=== PATIENT | female | born 1945 | race African-American/Black ===

== ENCOUNTER 2021-05-07 18:10 | Inpatient (IN) | payer MEDICARE, OTHER ==
--- NOTE | 2021-05-07 18:32 | Emergency Department Report ---
HPI - General Chief Complaint: Altered Mental Status Time Seen by Provider: 05/07/21 18:14 - HPI HPI: 76-year-old female with history of hypertension and prior stroke 3 years ago ( says that the patient never followed up according to EMS) brought in by EMS for 2 to 3 days of several neurologic symptoms including generalized weakness and malaise, uncoordinated gait, and left-sided facial droop. According to EMS, the patient vomited once in route. She is noted to have elevated blood pressure of 190/90. Her fingerstick blood glucose was 294. She complains of severe headache for the past 2 to 3 days. Exact last known well time is not known. She says she has not felt well and has had a headache whenever she moves. She states she is also had urinary frequency and been drinking a lot of water. The patient denies any other symptoms or complaints. Further details of the HPI are highly limited due to the patient's current clinical condition. ED Past Medical Hx - Past Medical History Previous Medical History?: Yes Hx Hypertension: Yes Hx CVA: Yes - Social History Smoking Status: Never Smoker ED Review of Systems ROS: Stated complaint: AMS Other details as noted in HPI Comment: All other systems reviewed and negative Constitutional: malaise. denies: chills, fever Eyes: denies: eye pain, vision change ENT: denies: throat pain, congestion Respiratory: denies: cough, shortness of breath Cardiovascular: denies: chest pain, palpitations Endocrine: increased thirst Gastrointestinal: denies: abdominal pain, nausea, vomiting Genitourinary: frequency. denies: dysuria Musculoskeletal: denies: back pain, arthralgia Skin: denies: rash, lesions Neurological: headache, weakness, numbness Physical Exam - Physical Exam Vital Signs: Vital Signs 05/07/21 18:12 Temperature 98.6 F Pulse Rate 64 Respiratory 18 Rate Blood Pressure 136/82 [Left] O2 Sat by Pulse 98 Oximetry Physical Exam: GENERAL: Well developed and well nourished. No acute distress HEAD: Normocephalic. No obvious signs of trauma. ENT: Dry mucous membranes. EYES: Extraocular movements are intact. Pupils are equal round and reactive to light bilaterally NECK: Supple. Full ROM is intact. Trachea is midline. LUNGS: Nonlabored breathing. Equal chest rise bilaterally. Right basilar rales. Otherwise clear. CARDIOVASCULAR: Regular rate and rhythm. No murmurs or rubs. VASCULAR: Cap refill < 2 seconds ABDOMEN: Abdomen is soft and nondistended. There is no significant tenderness, guarding or rebound. SKIN: Skin is warm and dry NEURO: Patient is awake, alert, and oriented. There is a left-sided facial droop noted involving the lower aspect of the face. Otherwise care support representative II-XII grossly intact. There is weakness of the left upper and lower extremities with subjectively decreased sensation to light touch. No drift. Normal speech. MUSCULOSKELETAL: No obvious deformities. No significant tenderness. Normal ROM throughout. BACK/SPINE: No midline tenderness or step-offs of the C/T/L spine. No costovertebral angle tenderness. ED Course Vital Signs 05/07/21 18:12 Temperature 98.6 F Pulse Rate 64 Respiratory 18 Rate Blood Pressure 136/82 [Left] O2 Sat by Pulse 98 Oximetry ED Medical Decision Making - Lab Data Result diagrams: 05/08/21 03:42 05/08/21 03:42 Lab Results 05/07/21 05/07/21 05/07/21 Range/Units 18:29 18:29 18:29 WBC 11.5 H (4.5-11.0) K/mm3 RBC 4.92 (3.65-5.03) M/mm3 Hgb 15.0 H (10.1-14.3) gm/dl Hct 45.7 H (30.3-42.9) % MCV 93 (79-97) fl MCH 31 (28-32) pg MCHC 33 (30-34) % RDW 13.0 L (13.2-15.2) % Plt Count 206 (140-440) K/mm3 Lymph % (Auto) 13.0 L (13.4-35.0) % Riley % (Auto) 2.7 (0.0-7.3) % Eos % (Auto) 0.2 (0.0-4.3) % Baso % (Auto) 0.2 (0.0-1.8) % Lymph # (Auto) 1.5 (1.2-5.4) K/mm3 Riley # (Auto) 0.3 (0.0-0.8) K/mm3 Eos # (Auto) 0.0 (0.0-0.4) K/mm3 Baso # (Auto) 0.0 (0.0-0.1) K/mm3 Seg Neutrophils % 83.9 H (40.0-70.0) % Seg Neutrophils # 9.7 H (1.8-7.7) K/mm3 PT 12.9 (12.2-14.9) Sec. INR 0.88 (0.87-1.13) APTT 26.9 (24.2-36.6) Sec. Thrombin Time 17.4 (15.1-19.6) Sec. D-Dimer (0-234) ng/mlDDU Sodium (137-145) mmol/L Potassium (3.6-5.0) mmol/L Chloride (98-107) mmol/L Carbon Dioxide (22-30) mmol/L Anion Gap mmol/L BUN (7-17) mg/dL Creatinine (0.6-1.2) mg/dL Estimated GFR ml/min BUN/Creatinine Ratio % Glucose (65-100) mg/dL Hemoglobin A1c (4-6) % Lactic Acid (0.7-2.0) mmol/L Calcium (8.4-10.2) mg/dL Magnesium (1.7-2.3) mg/dL Ferritin (10.0-200.0) ng/mL Total Bilirubin (0.1-1.2) mg/dL Direct Bilirubin (0-0.2) mg/dL Indirect Bilirubin mg/dL AST (5-40) units/L ALT (7-56) units/L Alkaline Phosphatase (35-129) units/L Ammonia (25-60) umol/L Lactate Dehydrogenase (91-180) units/L Total Creatine Kinase 73 (30-135) units/L CK-MB (CK-2) 1.7 (0.0-4.0) ng/mL CK-MB (CK-2) Rel Index 2.3 (0-4) Troponin T < 0.010 (0.00-0.029) ng/mL C-Reactive Protein (0.00-1.30) mg/dL Total Protein (6.3-8.2) g/dL Albumin (3.9-5) g/dL Albumin/Globulin Ratio % Plasma/Serum Alcohol (0-0.07) % 05/07/21 05/07/21 05/07/21 Range/Units 18:29 19:04 19:04 WBC (4.5-11.0) K/mm3 RBC (3.65-5.03) M/mm3 Hgb (10.1-14.3) gm/dl Hct (30.3-42.9) % MCV (79-97) fl MCH (28-32) pg MCHC (30-34) % RDW (13.2-15.2) % Plt Count (140-440) K/mm3 Lymph % (Auto) (13.4-35.0) % Riley % (Auto) (0.0-7.3) % Eos % (Auto) (0.0-4.3) % Baso % (Auto) (0.0-1.8) % Lymph # (Auto) (1.2-5.4) K/mm3 Riley # (Auto) (0.0-0.8) K/mm3 Eos # (Auto) (0.0-0.4) K/mm3 Baso # (Auto) (0.0-0.1) K/mm3 Seg Neutrophils % (40.0-70.0) % Seg Neutrophils # (1.8-7.7) K/mm3 PT (12.2-14.9) Sec. INR (0.87-1.13) APTT (24.2-36.6) Sec. Thrombin Time (15.1-19.6) Sec. D-Dimer (0-234) ng/mlDDU Sodium 136 L (137-145) mmol/L Potassium 4.0 (3.6-5.0) mmol/L Chloride 100.9 (98-107) mmol/L Carbon Dioxide 23 (22-30) mmol/L Anion Gap 16 mmol/L BUN 19 H (7-17) mg/dL Creatinine 0.5 L (0.6-1.2) mg/dL Estimated GFR > 60 ml/min BUN/Creatinine Ratio 38 % Glucose 312 H (65-100) mg/dL Hemoglobin A1c (4-6) % Lactic Acid 1.90 (0.7-2.0) mmol/L Calcium 9.2 (8.4-10.2) mg/dL Magnesium 2.20 (1.7-2.3) mg/dL Ferritin (10.0-200.0) ng/mL Total Bilirubin 0.40 (0.1-1.2) mg/dL Direct Bilirubin < 0.2 (0-0.2) mg/dL Indirect Bilirubin 0.2 mg/dL AST 21 (5-40) units/L ALT 23 (7-56) units/L Alkaline Phosphatase 71 (35-129) units/L Ammonia 31.0 (25-60) umol/L Lactate Dehydrogenase (91-180) units/L Total Creatine Kinase (30-135) units/L CK-MB (CK-2) (0.0-4.0) ng/mL CK-MB (CK-2) Rel Index (0-4) Troponin T (0.00-0.029) ng/mL C-Reactive Protein (0.00-1.30) mg/dL Total Protein 7.6 (6.3-8.2) g/dL Albumin 4.4 (3.9-5) g/dL Albumin/Globulin Ratio 1.4 % Plasma/Serum Alcohol (0-0.07) % 05/07/21 05/07/21 05/07/21 Range/Units 19:04 20:18 20:18 WBC (4.5-11.0) K/mm3 RBC (3.65-5.03) M/mm3 Hgb (10.1-14.3) gm/dl Hct (30.3-42.9) % MCV (79-97) fl MCH (28-32) pg MCHC (30-34) % RDW (13.2-15.2) % Plt Count (140-440) K/mm3 Lymph % (Auto) (13.4-35.0) % Riley % (Auto) (0.0-7.3) % Eos % (Auto) (0.0-4.3) % Baso % (Auto) (0.0-1.8) % Lymph # (Auto) (1.2-5.4) K/mm3 Riley # (Auto) (0.0-0.8) K/mm3 Eos # (Auto) (0.0-0.4) K/mm3 Baso # (Auto) (0.0-0.1) K/mm3 Seg Neutrophils % (40.0-70.0) % Seg Neutrophils # (1.8-7.7) K/mm3 PT (12.2-14.9) Sec. INR (0.87-1.13) APTT (24.2-36.6) Sec. Thrombin Time (15.1-19.6) Sec. D-Dimer 395.60 H (0-234) ng/mlDDU Sodium (137-145) mmol/L Potassium (3.6-5.0) mmol/L Chloride (98-107) mmol/L Carbon Dioxide (22-30) mmol/L Anion Gap mmol/L BUN (7-17) mg/dL Creatinine (0.6-1.2) mg/dL Estimated GFR ml/min BUN/Creatinine Ratio % Glucose 279 H (65-100) mg/dL Hemoglobin A1c (4-6) % Lactic Acid (0.7-2.0) mmol/L Calcium (8.4-10.2) mg/dL Magnesium (1.7-2.3) mg/dL Ferritin (10.0-200.0) ng/mL Total Bilirubin (0.1-1.2) mg/dL Direct Bilirubin (0-0.2) mg/dL Indirect Bilirubin mg/dL AST (5-40) units/L ALT (7-56) units/L Alkaline Phosphatase (35-129) units/L Ammonia (25-60) umol/L Lactate Dehydrogenase 218 H (91-180) units/L Total Creatine Kinase (30-135) units/L CK-MB (CK-2) (0.0-4.0) ng/mL CK-MB (CK-2) Rel Index (0-4) Troponin T (0.00-0.029) ng/mL C-Reactive Protein 0.10 (0.00-1.30) mg/dL Total Protein (6.3-8.2) g/dL Albumin (3.9-5) g/dL Albumin/Globulin Ratio % Plasma/Serum Alcohol < 0.01 (0-0.07) % 05/07/21 05/07/21 05/07/21 Range/Units 20:18 20:47 21:49 WBC (4.5-11.0) K/mm3 RBC (3.65-5.03) M/mm3 Hgb (10.1-14.3) gm/dl Hct (30.3-42.9) % MCV (79-97) fl MCH (28-32) pg MCHC (30-34) % RDW (13.2-15.2) % Plt Count (140-440) K/mm3 Lymph % (Auto) (13.4-35.0) % Riley % (Auto) (0.0-7.3) % Eos % (Auto) (0.0-4.3) % Baso % (Auto) (0.0-1.8) % Lymph # (Auto) (1.2-5.4) K/mm3 Riley # (Auto) (0.0-0.8) K/mm3 Eos # (Auto) (0.0-0.4) K/mm3 Baso # (Auto) (0.0-0.1) K/mm3 Seg Neutrophils % (40.0-70.0) % Seg Neutrophils # (1.8-7.7) K/mm3 PT (12.2-14.9) Sec. INR (0.87-1.13) APTT (24.2-36.6) Sec. Thrombin Time (15.1-19.6) Sec. D-Dimer (0-234) ng/mlDDU Sodium (137-145) mmol/L Potassium (3.6-5.0) mmol/L Chloride (98-107) mmol/L Carbon Dioxide (22-30) mmol/L Anion Gap mmol/L BUN (7-17) mg/dL Creatinine (0.6-1.2) mg/dL Estimated GFR ml/min BUN/Creatinine Ratio % Glucose (65-100) mg/dL Hemoglobin A1c 8.8 H (4-6) % Lactic Acid (0.7-2.0) mmol/L Calcium (8.4-10.2) mg/dL Magnesium (1.7-2.3) mg/dL Ferritin 123.6 (10.0-200.0) ng/mL Total Bilirubin (0.1-1.2) mg/dL Direct Bilirubin (0-0.2) mg/dL Indirect Bilirubin mg/dL AST (5-40) units/L ALT (7-56) units/L Alkaline Phosphatase (35-129) units/L Ammonia (25-60) umol/L Lactate Dehydrogenase (91-180) units/L Total Creatine Kinase (30-135) units/L CK-MB (CK-2) (0.0-4.0) ng/mL CK-MB (CK-2) Rel Index (0-4) Troponin T < 0.010 (0.00-0.029) ng/mL C-Reactive Protein (0.00-1.30) mg/dL Total Protein (6.3-8.2) g/dL Albumin (3.9-5) g/dL Albumin/Globulin Ratio % Plasma/Serum Alcohol (0-0.07) % - EKG Data -: EKG Interpreted by Ct - EKG Data 05/07/21 20:12 Normal sinus rhythm. Normal axis. Normal intervals. No ectopy. No significant ST segment or T wave abnormalities. - Radiology Data Radiology results: report reviewed - Medical Decision Making 76-year-old female with history of prior stroke who did not follow-up brought in by EMS for 2 to 3 days of neurologic deficits including left-sided facial droop, left-sided weakness, gait disturbance, and confusion. The patient also reports frequent urination and increased thirst. She has had a persistent severe headache over that period of time. Initial blood pressure was 190/90 with fingerstick blood glucose of 294. Given the deficits observed on exam and unknown chronicity stroke alert was called with Noncon CT of the head to assess for evidence of ischemia versus intracranial hemorrhage versus other abnormality to explain the patient's presentation. Radiology called and states that Noncon CT of the head reveals 2 small deep infa rctions in the right basal ganglia capsular distribution which are chronic in nature. There is no evidence of acute stroke or intracranial hemorrhage. Labs reveal leukocytosis of 11.5 with hemoglobin of 15.0. Creatinine is 0.5 but BUN is 19, with BUN to creatinine ratio of 38. In light of the increased BUN to creatinine ratio I feel that the patient is likely hemoconcentrated due to severe volume depletion. In addition, glucose is elevated at 312. Patient has no history of diabetes. Given likely new onset diabetes and severe dehydration I have ordered 2 L of IV fluids as well as blood cultures. I spoke with Dr. Garcia of teleneurology regarding the case. He agrees with my clinical impression that the patient likely has metabolic derangements which have unmasked prior neurologic deficits from previous stroke. Of course acute stroke cannot be definitively ruled out. Agrees with our current work-up and management. Chest x-ray shows right lower lobe pneumonia. I have ordered IV ceftriaxone and azithromycin. I have also ordered the COVID-19 order set. Patient will be admitted to medicine for further work-up and management. Critical Care Time: Yes Critical care time in (mins) excluding proc time.: 45 Critical care attestation.: If time is entered above; I have spent that time in minutes in the direct care of this critically ill patient, excluding procedure time. Critical care time was spent in the evaluation/assessment, work-up, and management of left-sided facial droop requiring stroke alert initiation as well as new onset diabetes with hyperglycemia and pneumonia with metabolic encephal opathy requiring frequent reevaluation reassessment as well as consultation with specialist ED Disposition Clinical Impression: Newly diagnosed diabetes, Dehydration, Encephalopathy, metabolic, Pneumonia, Hyperglycemia, Facial droop Disposition: ADMITTED INPATIENT Is pt being admited?: Yes Condition: Stable - Assessment Assessment Interval: Baseline - Level of Consciousness 1a. Level of Consciousness: alert/keenly responsive - LOC Questions 1b. LOC Questions: answers both correctly - LOC Command 1c. LOC Commands: performs tasks correctly - Best Gaze 2. Best Gaze: normal - Visual 3. Visual: no visual loss - Facial Palsy 4. Facial Palsy: minor paralysis - Motor Arm 5a. Motor Arm Left: no drift 5b. Motor Arm Right: no drift - Motor Leg 6a. Motor Leg Left: no drift 6b. Motor Leg Right: no drift - Limb Ataxia 7. Limb Ataxia: absent - Sensory 8. Sensory: mild/moderate sensory loss - Best Language 9. Best Language: no aphasia - Dysarthria 10. Dysarthria: normal - Extinction and Inattention 11. Extinction/Inattention: no abnormality - Scoring Total Score: 2 Stroke Severity: Minor Stroke
[2021-05-07 18:39] LABS: Basophils % (Auto) 0.2 % (0.0-1.8); Eosinophils % (Auto) 0.2 % (0.0-4.3); Hematocrit 45.7 % (30.3-42.9); Lymphocytes # (Auto) 1.5 K/mm3 (1.2-5.4); Mean Corpuscular HGB Conc 33 % (30-34); Mean Corpuscular Volume 93 fl (79-97); Monocytes # (Auto) 0.3 K/mm3 (0.0-0.8); Monocytes % (Auto) 2.7 % (0.0-7.3); Platelet Count 206 K/mm3 (140-440); Red Blood Count 4.92 M/mm3 (3.65-5.03)
--- NOTE | 2021-05-07 18:47 | Cat Scan Report ---
CT HEAD WITHOUT CONTRAST INDICATION / CLINICAL INFORMATION: Stroke symptoms. TECHNIQUE: All CT scans at this location are performed using CT dose reduction for ALARA by means of automated e xposure control. COMPARISON: None available. FINDINGS: HEMORRHAGE: No evidence of intracranial hemorrhage or extra-axial fluid collection. EXTRA-AXIAL SPACES: Cortical sulci and sylvian fissures are mildly within normal limits for the patie nt's age of 76 years. Basilar cisterns have an unremarkable appearance. VENTRICULAR SYSTEM: The third and lateral ventricles are enlarged reflecting presence of age related parenchymal volume loss. CEREBRAL PARENCHYMA: A well-circumscribed region of decreased brain parenchymal attenuation is observ ed involving anterior limb internal capsule on the right. A second area of decreased brain parenchyma l attenuation is observed in the right mathews radiata. These are manifestation of small deep infarcti on which are likely subacute or chronic. Further evaluation with magnetic resonance imaging would be useful to more accurately date these findings. MIDLINE SHIFT OR HERNIATION: There is no mass effect. CEREBELLUM / BRAINSTEM: Brainstem has an unremarkable appearance. Age related cerebellar atrophy is n oted. MIDLINE STRUCTURES:Pituitary gland has an unremarkable appearance. No abnormalities are seen in the p ineal region. INTRACRANIAL VESSELS:Calcified atherosclerotic plaque is present along the course of the cavernous se gments of both internal carotid arteries. Similar findings are seen at the distal vertebral arteries. ORBITS: Status post bilateral cataract surgery. No additional abnormality. SOFT TISSUES of HEAD: No significant abnormality. CALVARIUM: Evaluation of bone windows reveals no abnormalities. PARANASAL SINUSES / MASTOID AIR CELLS: Mucosal thickening is present at the base of the left maxillar y sinus. Paranasal sinuses otherwise appear clear. Mastoid air cells are normally pneumatized bilater ally. ADDITIONAL FINDINGS: None. IMPRESSION: 1. 2 small deep infarctions are identified in a right ganglia capsular distribution. These are likely chronic. 2. No acute intracranial abnormality. CODE STROKE: Time of Communication (HELP DESK TEAM LEADER/CDT): 1740 Central standard time Licensed Practitioner Receiving Report: Dr. Jann Turner of the [facility] em ergency department. Signer Name: Gilbert Kim MD Signed: 05/07/2021 6:43 PM Workstation Name: [id number]
[2021-05-07 18:48] LABS: INR 0.88 (0.87-1.13)
[2021-05-07 18:49] LABS: Partial Thromboplastin Time 26.9 Sec. (24.2-36.6); Thrombin Time 17.4 Sec. (15.1-19.6)
[2021-05-07 19:04] LABS: Alanine Aminotransferase 23 units/L (7-56); Albumin 4.4 g/dL (3.9-5); Blood Urea Nitrogen 19 mg/dL (7-17); Calcium 9.2 mg/dL (8.4-10.2); Hemolysis Index 6
[2021-05-07 19:05] LABS: Creatine Kinase MB 1.7 ng/mL (0.0-4.0)
[2021-05-07 19:10] LABS: BUN/Creatinine Ratio 38; Bilirubin,Direct < 0.2 mg/dL (0-0.2)
[2021-05-07] MEDS ORDERED: SODIUM CHLORIDE 0.9% 1000 ML 1,000 ML IV ONE ×2 (19:20→19:21)
[2021-05-07] MEDS ORDERED: ASPIRIN 325 MG TAB PO ONE (19:25)
--- NOTE | 2021-05-07 19:43 | Consultation ---
Medications and Allergies Allergies Allergy/AdvReac Type Severity Reaction Status Date / Time No Known Allergies Allergy Unverified 05/07/21 18:12 Active Meds: Active Medications Sodium Chloride (Nacl 0.9% 1000 Ml) 1,000 mls @ 999 mls/hr IV BOLUS ONE Stop: 05/07/21 20:20 Sodium Chloride (Nacl 0.9% 1000 Ml) 1,000 mls @ 999 mls/hr IV BOLUS ONE Stop: 05/07/21 20:21 Physical Examination - Vital Signs Vital Signs: Vital Signs Temp Pulse Resp BP Pulse Ox 98.6 F 64 18 136/82 98 05/07/21 18:12 05/07/21 18:12 05/07/21 18:12 05/07/21 18:12 05/07/21 18:12 Results - Laboratory Findings CBC and BMP: 05/07/21 18:29 05/07/21 18:29 Abnormal Lab Findings: Abnormal Labs 05/07/21 05/07/21 18:29 18:29 WBC 11.5 H Hgb 15.0 H Hct 45.7 H RDW 13.0 L Lymph % (Auto) 13.0 L Seg Neutrophils % 83.9 H Seg Neutrophils # 9.7 H Sodium 136 L BUN 19 H Creatinine 0.5 L Glucose 312 H Assessment and Plan [facility] Consult Note # Demographics Consult Type: Acute Stroke Level 2 (4.5-24 hrs) Patient Location: Emergency Room First Name: richard Last Name: clemente Gender: Female Facility: [facility] Time of Initial Page (Eastern Time): 05/07/2021, 18:05 Time of Return Call (Eastern Time): 05/07/2021, 18:05 # HPI History: 2-3D face droop and weakness. Blood glucose elevated. Dehydrated. Prior right stroke. # PMH-[id number] Past Medical History: stroke # Assessment Impression: Altered Mental Status Superimposed on prior neurologic injury more likely than new stroke. # Plan Thrombolytic/Intervention: NOT IV Thrombolysis or IA Intervention candidate Thrombolytic Exclusion (< 3 hour window): time of onset unclear Thrombolytic Exclusion: > 4.5 hours Intraarterial Exclusion: clinically not consistent with stroke Imaging: (urgency: routine): MRI Brain without contrast Other: would not pursue stroke work-up if MRI is negative I have discussed my recommendations with the referring provider Disposition: admit # Logistics Telemedicine: phone only
--- NOTE | 2021-05-07 19:57 | XRay Report ---
CHEST 1 VIEW 05/07/2021 7:36 PM INDICATION / CLINICAL INFORMATION: stroke. COMPARISON: None available. FINDINGS: SUPPORT DEVICES: None. HEART / MEDIASTINUM: No significant abnormality. LUNGS / PLEURA: Mild parenchymal disease right lower lung field. No pneumothorax. ADDITIONAL FINDINGS: No significant additional findings. IMPRESSION: 1. Probable right lower lobe pneumonia. Signer Name: Berny Bell MD Signed: 05/07/2021 7:52 PM Workstation Name: [id number]
[2021-05-07] MEDS ORDERED: cefTRIAXone/NS 2 GM/100 ML 2 GM/100 ML BAG IV ONE (20:06)
[2021-05-07] MEDS: AZITHROMYCIN/NS 500 MG/250 ML 500 MG/250 ML BAG IV ONE ×2 (20:15→21:15)
[2021-05-07 20:59] LABS: Amphetamine Screen,Urine Negative; Benzodiazepines Screen,Urine Negative; Cannabinoid Screen,Urine Negative; Cocaine Screen,Urine Negative; Methadone Screen,Urine Negative; Opiate Screen,Urine Negative
[2021-05-07 21:12] LABS: Bilirubin,Urine NEG (Negative); Blood,Urine NEG (Negative); Color,Urine Yellow (Yellow); Protein,Urine <15 mg/dL mg/dL (Negative); Urobilinogen,Urine < 2.0 mg/dL (<2.0)
[2021-05-07 21:23] LABS: C-Reactive Protein 0.1 mg/dL (0.00-1.30)
[2021-05-07] MEDS ORDERED: MAGNESIUM HYDROXIDE (MOM) ORAL LIQD UDC PO PRN (21:49)
[2021-05-07] MEDS ORDERED: MORPHINE 4 MG/1 ML INJ IV PRN (21:49)
[2021-05-07] MEDS ORDERED: ONDANSETRON 4 MG/2 ML INJ IV PRN (21:49)
[2021-05-07] MEDS ORDERED: DEXTROSE 50% IN WATER (25GM) 50 ML SYRINGE IV PRN (21:49)
--- NOTE | 2021-05-07 21:59 | History and Physical Report ---
History of Present Illness Date of examination: 05/07/21 Date of admission: 05/07/2021 Chief complaint: Left-sided weakness History of present illness: 76-year-old female with known history of hypertension and history of stroke in the past brought in by EMS today for evaluation of generalized weakness, mildly, unstable gait and left-sided facial droop. Patient has been having severe headache over the past 2 to 3 days. She denies any blurry vision, no diaphoresis. She denies any fever or chills. She has had some urinary frequency but denies any hematuria or dysuria. Patient was noted to have an elevated blood pressure with systolic in the 190s and diastolic in the 90s upon arrival of EMS. Blood sugar was 294. Work-up in the emergency room today, CT scan of the head shows 2 small deep infarctions in the right ganglia capsular distribution which are likely chronic. Otherwise no acute intracranial abnormality. Lab reveals mild leukocytosis of 11.5, BUN of 19 creatinine of 0.5 Chest x-ray shows probable right lower lobe pneumonia Past History Past Medical History: hypertension, stroke Past Surgical History: No surgical history Social history: no significant social history Family history: no significant family history Medications and Allergies Allergies Allergy/AdvReac Type Severity Reaction Status Date / Time No Known Allergies Allergy Unverified 05/07/21 18:12 Active Meds: Active Medications Acetaminophen (Acetaminophen 325 Mg Tab) 650 mg PO Q4H PRN PRN Reason: Pain MILD(1-3)/Fever >100.5/CARROLL Ondansetron HCl (Ondansetron 4 Mg/2 Ml Inj) 4 mg IV Q8H PRN PRN Reason: Nausea And Vomiting Review of Systems Constitutional: weakness, malaise, no fever, no chills Ears, nose, mouth and throat: no nasal congestion, no sore throat Cardiovascular: no chest pain, no palpitations Respiratory: no cough, no shortness of breath Gastrointestinal: no abdominal pain, no nausea, no vomiting, no diarrhea Genitourinary Female: no pelvic pain, no flank pain, no dysuria, no hematuria Musculoskeletal: no neck pain, no low back pain Integumentary: no rash, no pruritis Neurological: other (Facial droop), no weakness (Left-sided), no headaches, no confusion, no gait dysfunction Psychiatric: no anxiety, no depression Endocrine: no polyphagia, no polydipsia, no polyuria, no nocturia Exam - Constitutional Vitals: Temp Pulse Resp BP Pulse Ox 98.6 F 82 25 H 153/84 95 05/07/21 18:12 05/07/21 20:16 05/07/21 20:16 05/07/21 21:16 05/07/21 21:16 General appearance: Present: no acute distress, well-nourished - EENT Eyes: Present: PERRL, EOM intact. Absent: scleral icterus ENT: hearing intact, clear oral mucosa, dentition normal - Neck Neck: Present: supple, normal ROM - Respiratory Respiratory effort: normal Respiratory: bilateral: diminished (At the lung bases) - Cardiovascular Rhythm: regular Heart Sounds: Present: S1 & S2. Absent: gallop, systolic murmur, diastolic murmur, rub, click - Extremities Extremities: no ischemia, pulses intact, pulses symmetrical, No edema, normal temperature, Full ROM Peripheral Pulses: within normal limits - Abdominal General gastrointestinal: Present: soft, non-tender, non-distended, normal bowel sounds. Absent: mass - Integumentary Integumentary: Present: clear, warm, dry, normal turgor. Absent: rash - Musculoskeletal Musculoskeletal: strength equal bilaterally - Psychiatric Psychiatric: appropriate mood/affect, intact judgment & insight, memory intact, cooperative - Neurologic Neurologic: CNII-XII intact, no focal deficits, moves all extremities, other (Mild facial asymmetry) HEART Score - HEART Score Troponin: Troponin T < 0.010 ng/mL (0.00-0.029) 05/07/21 20:47 Results - Labs CBC & Chem 7: 05/08/21 03:42 05/08/21 03:42 Labs: Abnormal lab results 05/07/21 05/07/21 05/07/21 Range/Units 18:29 18:29 20:18 WBC 11.5 H (4.5-11.0) K/mm3 Hgb 15.0 H (10.1-14.3) gm/dl Hct 45.7 H (30.3-42.9) % RDW 13.0 L (13.2-15.2) % Lymph % (Auto) 13.0 L (13.4-35.0) % Seg Neutrophils % 83.9 H (40.0-70.0) % Seg Neutrophils # 9.7 H (1.8-7.7) K/mm3 D-Dimer 395.60 H (0-234) ng/mlDDU Sodium 136 L (137-145) mmol/L BUN 19 H (7-17) mg/dL Creatinine 0.5 L (0.6-1.2) mg/dL Glucose 312 H (65-100) mg/dL Lactate Dehydrogenase (91-180) units/L 05/07/21 Range/Units 20:18 WBC (4.5-11.0) K/mm3 Hgb (10.1-14.3) gm/dl Hct (30.3-42.9) % RDW (13.2-15.2) % Lymph % (Auto) (13.4-35.0) % Seg Neutrophils % (40.0-70.0) % Seg Neutrophils # (1.8-7.7) K/mm3 D-Dimer (0-234) ng/mlDDU Sodium (137-145) mmol/L BUN (7-17) mg/dL Creatinine (0.6-1.2) mg/dL Glucose 279 H (65-100) mg/dL Lactate Dehydrogenase 218 H (91-180) units/L Assessment and Plan - Patient Problems (1) Pneumonia Current Visit: Yes Status: Acute Plan to address problem: Patient placed on empiric IV antibiotics. We will also check for COVID-19. (2) Dehydration Current Visit: Yes Status: Acute Plan to address problem: Will place on IV fluid and monitor BUN and creatinine. (3) Encephalopathy, metabolic Current Visit: Yes Status: Acute Plan to address problem: Possibly secondary to the underlying pneumonia versus dehydration. (4) Hyperglycemia Current Visit: Yes Status: Acute Plan to address problem: Will place patient on a sliding scale insulin and monitor Accu-Cheks. Patient has no known history of diabetes mellitus. We will request diabetic teaching. Hemoglobin A1c is 8.8% (5) Facial droop Current Visit: Yes Status: Acute Plan to address problem: We will request neurology evaluation. We will schedule for MRI of the brain. (6) DVT prophylaxis Current Visit: No Status: Acute Plan to address problem: Will place patient on subcutaneous heparin. (7) Full code status Current Visit: No Status: Acute Plan to address problem: Patient is full code.
[2021-05-08] MEDS: INSULIN LISPRO 100 UNIT/ML SUB-Q SCH ×5 (00:08→22:20)
[2021-05-08 05:40] LABS: Basophils % (Auto) 0.3 % (0.0-1.8); Hematocrit 42.5 % (30.3-42.9); Hemoglobin 13.8 gm/dl (10.1-14.3); Lymphocytes # (Auto) 1.9 K/mm3 (1.2-5.4); Lymphocytes % (Auto) 19.5 % (13.4-35.0); Mean Corpuscular HGB Conc 33 % (30-34); Mean Corpuscular Volume 94 fl (79-97); Monocytes # (Auto) 0.5 K/mm3 (0.0-0.8); Monocytes % (Auto) 4.7 % (0.0-7.3); Platelet Count 188 K/mm3 (140-440); Red Blood Count 4.54 M/mm3 (3.65-5.03); Red Cell Distribution Width 13.2 % (13.2-15.2)
[2021-05-08 06:03] LABS: Blood Urea Nitrogen 16 mg/dL (7-17); Calcium 8.3 mg/dL (8.4-10.2); Hemolysis Index 8
[2021-05-08 06:05] LABS: BUN/Creatinine Ratio 40
[2021-05-08] MEDS: SODIUM CHLORIDE 0.9% 1000 ML 1,000 ML IV SCH ×2 (06:07→22:22)
[2021-05-08] MEDS: HEPARIN 5,000 UNIT/1 ML VIAL SUB-Q SCH ×3 (06:07→22:08)
[2021-05-08] MEDS ORDERED: cefTRIAXone/NS 2 GM/100 ML 2 GM/100 ML BAG IV SCH (10:00)
[2021-05-08] MEDS ORDERED: AZITHROMYCIN/NS 500 MG/250 ML 500 MG/250 ML BAG IV SCH (10:00)
--- NOTE | 2021-05-08 10:12 | Cat Scan Report ---
CTA CHEST WITH CONTRAST INDICATION / CLINICAL INFORMATION: SHORTNESS OF BREATH. TECHNIQUE: Axial CT images were obtained through the chest after injection of 100 cc Omnipaque 350 IV contrast. 3 plane MIP and/or 3D reconstructions were produced. All CT scans at this location are per formed using CT dose reduction for ALARA by means of automated exposure control. COMPARISON: None available. FINDINGS: PULMONARY ARTERIES: Good opacification bilaterally without intraluminal filling defect to suggest acu te PTE. THORACIC AORTA: Mild atherosclerotic calcification without acute abnormality. HEART: No significant abnormality. CORONARY ARTERY CALCIFICATION: Severe. MEDIASTINUM / SAÚL: No significant abnormality. PLEURA: No pleural effusion. No pneumothorax. LUNGS: Mild dependent atelectasis in the right lower lung. ADDITIONAL FINDINGS: None. UPPER ABDOMEN: Small simple cyst in the left lobe of the liver. SKELETAL STRUCTURES: No significant osseous abnormality. IMPRESSION: 1. No CT evidence for pulmonary embolism. 2. Severe coronary artery calcification. Signer Name: Jesús Mcrae MD Signed: 05/08/2021 10:08 AM Workstation Name: [id number]
[2021-05-08] MEDS: hydroCHLOROthiazide 25 MG TAB PO SCH (11:42)
--- NOTE | 2021-05-08 12:54 | Progress Note ---
Assessment and Plan Assessment and plan: Left-sided weakness History of present illness: 76-year-old female with known history of hypertension and history of stroke in the past brought in by EMS today for evaluation of generalized weakness, mildly, unstable gait and left-sided facial droop. Patient has been having severe headache over the past 2 to 3 days. She denies any blurry vision, no diaphoresis. She denies any fever or chills. She has had some urinary frequency but denies any hematuria or dysuria. Patient was noted to have an elevated blood pressure with systolic in the 190s and diastolic in the 90s upon arrival of EMS. Blood sugar was 294. Work-up in the emergency room today, CT scan of the head shows 2 small deep infarctions in the right ganglia capsular distribution which are likely chronic. Otherwise no acute intracranial abnormality. Lab reveals mild leukocytosis of 11.5, BUN of 19 creatinine of 0.5 Chest x-ray shows probable right lower lobe pneumonia 05/08: Patient seen and examined this morning awaiting an MRI of the brain to rule out pulmonary embolism in the meantime I did a CTA of the chest because of elevated D-dimer and the concern for COVID-19 which has not been proven yet. It was negative for pulmonary embolism however showed severe coronary artery disease for which an outpatient developer programmer recommended. We will continue aspirin and statin therapy will obtain PT OT evaluation. Blood pressure still elevated which is likely contributing to the headache will start the patient on blood pressure control for better improvement. Anticipate discharge later today or first on the morning if MRI is negative I did also call the MRI department but no one was picking up. (1) Pneumonia Current Visit: Yes Status: Acute Plan to address problem: Patient placed on empiric IV antibiotics. We will also check for COVID-19. (2) Dehydration Current Visit: Yes Status: Acute Plan to address problem: Will place on IV fluid and monitor BUN and creatinine. (3) Encephalopathy, metabolic Current Visit: Yes Status: Acute Plan to address problem: Possibly secondary to the underlying pneumonia versus dehydration. (4) Hyperglycemia-possibly new onset diabetes with elevated A1c will likely discharge on Metformin Current Visit: Yes Status: Acute Plan to address problem: Will place patient on a sliding scale insulin and monitor Accu-Cheks. Patient has no known history of diabetes mellitus. We will request diabetic teaching. Hemoglobin A1c is 8.8% (5) Facial droop Current Visit: Yes Status: Acute Plan to address problem: We will request neurology evaluation. We will schedule for MRI of the brain. (6) hypertensive urgency -improved (7) DVT prophylaxis Current Visit: No Status: Acute Plan to address problem: Will place patient on subcutaneous heparin. (7) Full code status Current Visit: No Status: Acute Plan to address problem: Patient is full code. History Interval history: Patient seen and examined she says that she is feeling better but was irate this morning because of the alarms going off of the room. Discussed with nursing staff in the ED this morning if we can obtain MRI and if is negative the patient can likely be discharged but as of this time at 12:50 PM this appears not to have been done. Hospitalist Physical - Physical exam Narrative exam: General appearance: Present: no acute distress, well-nourished - EENT Eyes: Present: PERRL, EOM intact. Absent: scleral icterus she does have a left sided facial droop ENT: hearing intact, clear oral mucosa, dentition normal - Neck Neck: Present: supple, normal ROM - Respiratory Respiratory effort: normal Respiratory: bilateral: diminished (At the lung bases) - Cardiovascular Rhythm: regular Heart Sounds: Present: S1 & S2. Absent: gallop, systolic murmur, diastolic murmur, rub, click - Extremities Extremities: no ischemia, pulses intact, pulses symmetrical, No edema, normal temperature, Full ROM Peripheral Pulses: within normal limits - Abdominal General gastrointestinal: Present: soft, non-tender, non-distended, normal bowel sounds. Absent: mass - Integumentary Integumentary: Present: clear, warm, dry, normal turgor. Absent: rash - Musculoskeletal Musculoskeletal: strength equal bilaterally - Psychiatric Psychiatric: appropriate mood/affect, intact judgment & insight, memory intact, cooperative - Neurologic Neurologic: CNII-XII intact, no focal deficits, moves all extremities, other (Mild facial asymmetry with left facial droop) - Constitutional Vitals: Temp Pulse Resp BP Pulse Ox 98.7 F 72 17 170/77 96 05/08/21 10:24 05/08/21 10:24 05/08/21 10:24 05/08/21 10:24 05/08/21 10:24 General appearance: Present: no acute distress, well-nourished HEART Score - HEART Score Troponin: Troponin T < 0.010 ng/mL (0.00-0.029) 05/08/21 00:13 Results - Labs CBC & Chem 7: 05/08/21 03:42 05/08/21 03:42 Labs: Laboratory Last Values WBC 9.7 K/mm3 (4.5-11.0) 05/08/21 03:42 RBC 4.54 M/mm3 (3.65-5.03) 05/08/21 03:42 Hgb 13.8 gm/dl (10.1-14.3) 05/08/21 03:42 Hct 42.5 % (30.3-42.9) 05/08/21 03:42 MCV 94 fl (79-97) 05/08/21 03:42 MCH 31 pg (28-32) 05/08/21 03:42 MCHC 33 % (30-34) 05/08/21 03:42 RDW 13.2 % (13.2-15.2) 05/08/21 03:42 Plt Count 188 K/mm3 (140-440) 05/08/21 03:42 Lymph % (Auto) 19.5 % (13.4-35.0) 05/08/21 03:42 [place] % (Auto) 4.7 % (0.0-7.3) 05/08/21 03:42 Eos % (Auto) 0.0 % (0.0-4.3) 05/08/21 03:42 Baso % (Auto) 0.3 % (0.0-1.8) 05/08/21 03:42 Lymph # (Auto) 1.9 K/mm3 (1.2-5.4) 05/08/21 03:42 [place] # (Auto) 0.5 K/mm3 (0.0-0.8) 05/08/21 03:42 Eos # (Auto) 0.0 K/mm3 (0.0-0.4) 05/08/21 03:42 Baso # (Auto) 0.0 K/mm3 (0.0-0.1) 05/08/21 03:42 Seg Neutrophils % 75.5 % (40.0-70.0) H 05/08/21 03:42 Seg Neutrophils # 7.3 K/mm3 (1.8-7.7) 05/08/21 03:42 PT 12.9 Sec. (12.2-14.9) 05/07/21 18:29 INR 0.88 (0.87-1.13) 05/07/21 18:29 APTT 26.9 Sec. (24.2-36.6) 05/07/21 18:29 Thrombin Time 17.4 Sec. (15.1-19.6) 05/07/21 18:29 D-Dimer 395.60 ng/mlDDU (0-234) H 05/07/21 20:18 Sodium 141 mmol/L (137-145) 05/08/21 03:42 Potassium 4.0 mmol/L (3.6-5.0) 05/08/21 03:42 Chloride 106.4 mmol/L (98-107) 05/08/21 03:42 Carbon Dioxide 20 mmol/L (22-30) L 05/08/21 03:42 Anion Gap 19 mmol/L 05/08/21 03:42 BUN 16 mg/dL (7-17) 05/08/21 03:42 Creatinine 0.4 mg/dL (0.6-1.2) L 05/08/21 03:42 Estimated GFR > 60 ml/min 05/08/21 03:42 BUN/Creatinine Ratio 40 % 05/08/21 03:42 Glucose 203 mg/dL (65-100) H 05/08/21 03:42 POC Glucose 172 mg/dL (70-105) H 05/08/21 10:21 Hemoglobin A1c 8.8 % (4-6) H 05/07/21 21:49 Lactic Acid 1.90 mmol/L (0.7-2.0) 05/07/21 19:04 Calcium 8.3 mg/dL (8.4-10.2) L 05/08/21 03:42 Magnesium 2.20 mg/dL (1.7-2.3) 05/07/21 18:29 Ferritin 123.6 ng/mL (10.0-200.0) 05/07/21 20:18 Total Bilirubin 0.40 mg/dL (0.1-1.2) 05/07/21 18:29 Direct Bilirubin < 0.2 mg/dL (0-0.2) 05/07/21 18:29 Indirect Bilirubin 0.2 mg/dL 05/07/21 18:29 AST 21 units/L (5-40) 05/07/21 18:29 ALT 23 units/L (7-56) 05/07/21 18:29 Alkaline Phosphatase 71 units/L (35-129) 05/07/21 18:29 Ammonia 31.0 umol/L (25-60) 05/07/21 19:04 Lactate Dehydrogenase 218 units/L (91-180) H 05/07/21 20:18 Total Creatine Kinase 73 units/L (30-135) 05/07/21 18:29 CK-MB (CK-2) 1.7 ng/mL (0.0-4.0) 05/07/21 18:29 CK-MB (CK-2) Rel Index 2.3 (0-4) 05/07/21 18: Troponin T < 0.010 ng/mL (0.00-0.029) 05/08/21 00:13 C-Reactive Protein 0.10 mg/dL (0.00-1.30) 05/07/21 20:18 Total Protein 7.6 g/dL (6.3-8.2) 05/07/21 18:29 Albumin 4.4 g/dL (3.9-5) 05/07/21 18:29 Albumin/Globulin Ratio 1.4 % 05/07/21 18:29 Urine Color Yellow (Yellow) 05/07/21 Unknown Urine Turbidity Clear (Clear) 05/07/21 Unknown Urine pH 7.0 (5.0-7.0) 05/07/21 Unknown Ur Specific [place] 1.015 (1.003-1.030) 05/07/21 Unknown Urine Protein <15 mg/dl mg/dL (Negative) 05/07/21 Unknown Urine Glucose (UA) >=500 mg/dL (Negative) 05/07/21 Unknown Urine Ketones Neg mg/dL (Negative) 05/07/21 Unknown Urine Blood Neg (Negative) 05/07/21 Unknown Urine Nitrite Neg (Negative) 05/07/21 Unknown Urine Bilirubin Neg (Negative) 05/07/21 Unknown Urine Urobilinogen < 2.0 mg/dL (<2.0) 05/07/21 Unknown Ur Leukocyte Esterase Neg (Negative) 05/07/21 Unknown Urine WBC (Auto) 1.0 /HPF (0.0-6.0) 05/07/21 Unknown Urine RBC (Auto) 2.0 /HPF (0.0-6.0) 05/07/21 Unknown U Epithel Cells (Auto) < 1.0 /HPF (0-13.0) 05/07/21 Unknown Urine Yeast (Budding) Few /HPF 05/07/21 Unknown Urine Opiates Screen Negative 05/07/21 Unknown Urine Methadone Screen Negative 05/07/21 Unknown Ur Barbiturates Screen Negative 05/07/21 Unknown Ur Phencyclidine Scrn Negative 05/07/21 Unknown Ur Amphetamines Screen Negative 05/07/21 Unknown U Benzodiazepines Scrn Negative 05/07/21 Unknown Urine Cocaine Screen Negative 05/07/21 Unknown U Marijuana (THC) Screen Negative 05/07/21 Unknown Drugs of Abuse Note Disclamer 05/07/21 Unknown Plasma/Serum Alcohol < 0.01 % (0-0.07) 05/07/21 19:04 Microbiology: Microbiology 05/07/21 19:04 Peripheral/Venous Blood Culture - Preliminary Culture in Progress 05/07/21 19:12 Peripheral/Venous Blood Culture - Preliminary Culture in Progress Active Medications - Current Medications Current Medications: Generic Name Dose Route Start Last Admin Trade Name Freq PRN Reason Stop Dose Admin Acetaminophen 650 mg 05/07/21 21:49 Acetaminophen 325 Mg Tab PO Q4H PRN Pain MILD(1-3)/Fever >100.5/CARROLL Dextrose 0 ml 05/07/21 21:49 Dextrose 50% In Water (25gm) 50 Ml Syringe IV Q30MIN PRN Hypoglycemia Protocol Heparin Sodium (Porcine) 5,000 unit 05/08/21 06:00 05/08/21 06:07 Heparin 5,000 Unit/1 Ml Vial SUB-Q 5,000 unit Q8HR YOUSIF Administration Hydralazine HCl 10 mg 05/08/21 14:00 Hydralazine 20 Mg/1 Ml Inj IV Q4HR PRN Hypertension Hydrochlorothiazide 25 mg 05/08/21 10:00 05/08/21 11:42 Hydrochlorothiazide 25 Mg Tab PO 25 mg QDAY YOUSIF Administration Sodium Chloride 1,000 mls @ 125 mls/hr 05/07/21 22:00 05/08/21 06:07 Nacl 0.9% 1000 Ml IV 125 mls/hr DIRECT YOUSIF Administration Ceftriaxone Sodium 2 gm in 100 mls @ 200 mls/hr 05/08/21 10:00 05/08/21 11:44 Rocephin/Ns 2 Gm/100 Ml IV 200 mls/hr Q24HR YOUSIF Administration Protocol Azithromycin 500 mg in 250 mls @ 250 mls/hr 05/08/21 10:00 05/08/21 11:42 Zithromax/Ns IV 250 mls/hr Q24HR YOUSIF Administration Protocol Insulin Human Lispro 0 unit 05/07/21 22:00 05/08/21 11:43 Insulin Lispro 100 Unit/Ml SUB-Q Not Given ACHS YOUSIF Protocol Magnesium Hydroxide 30 ml 05/07/21 21:49 Magnesium Hydroxide (Mom) Oral Liqd Udc PO Q4H PRN Constipation Morphine Sulfate 2 mg 05/07/21 21:49 Morphine 2 Mg/1 Ml Inj IV Q4H PRN Pain, Moderate (4-6) Morphine Sulfate 4 mg 05/07/21 21:49 Morphine 4 Mg/1 Ml Inj IV Q4H PRN Pain , Severe (7-10) Ondansetron HCl 4 mg 05/07/21 21:49 Ondansetron 4 Mg/2 Ml Inj IV Q8H PRN Nausea And Vomiting Sodium Chloride 10 ml 05/07/21 22:00 05/08/21 11:49 Sodium Chloride 0.9% 10 Ml Flush Syringe IV 10 ml BID YOUSIF Administration Sodium Chloride 10 ml 05/07/21 21:49 Sodium Chloride 0.9% 10 Ml Flush Syringe IV PRN PRN LINE FLUSH Nutrition/Malnutrition Assess - Dietary Evaluation Nutrition/Malnutrition Findings: Nutrition Notes Start: 05/08/21 11:27 Freq: Status: Active Protocol: Document 05/08/21 11:27 RS (Rec: 05/08/21 11:30 RS [id number]) Nutrition Notes Need for Assessment generated from: MD Order,Education Initial or Follow up Brief Note Current Diagnosis Diabetes Other Pertinent Diagnosis COVID, Pneu, metabolic Encephalopathy Current Diet Cardiac Consistent CHO Labs/Tests HbA1c: 8.8 Hgb: 203 Pertinent Medications Humalog Height 5 ft 3 in Weight 65.771 kg [place] Body Weight (kg) 52.27 BMI 25.7 Subjective/Other Information MD consult for DM diet education. Pt currently on HOLD in ED. Newly dx of DM. Nutrition Intervention Follow-Up By: 05/10/21 Additional Comments F/U for DM diet education
[2021-05-08] MEDS ORDERED: hydrALAZINE 20 MG/1 ML INJ IV PRN (14:00)
[2021-05-08] MEDS: MORPHINE 2 MG/1 ML INJ IV PRN (23:21)
[2021-05-09] MEDS: HEPARIN 5,000 UNIT/1 ML VIAL SUB-Q SCH ×3 (05:44→21:19)
[2021-05-09] MEDS: SODIUM CHLORIDE 0.9% 1000 ML 1,000 ML IV SCH (05:45)
[2021-05-09] MEDS: INSULIN LISPRO 100 UNIT/ML SUB-Q SCH ×4 (07:30→22:50)
--- NOTE | 2021-05-09 08:31 | Consultation ---
History of Present Illness Consult date: 05/09/21 Reason for Consult: left side weakness,change mentation and elevated Glucose History of present illness: Left-sided weakness History of present illness: 76-year-old female [place] with known history of hypertension and history of stroke in the past brought in by EMS today for evaluation of generalized weakness, mildly, unstable gait and left-sided facial droop. Patient has been having severe headache over the past 2 to 3 days. She denies any blurry vision, no diaphoresis. She denies any fever or chills. She has had some urinary frequency but denies any hematuria or dysuria. Patient was noted to have an elevated blood pressure with systolic in the 190s and diastolic in the 90s upon arrival of EMS. Blood sugar was 294. Work-up in the emergency room today, CT scan of the head shows 2 small deep infarctions in the right ganglia capsular distribution which are likely chronic. Otherwise no acute intracranial abnormality. Lab reveals mild leukocytosis of 11.5, BUN of 19 creatinine of 0.5 Chest x-ray shows probable right lower lobe pneumonia Past History Past Medical History: hypertension, stroke Past Surgical History: No surgical history Social history: no significant social history Family history: no significant family history Medications and Allergies Allergies Allergy/AdvReac Type Severity Reaction Status Date / Time No Known Allergies Allergy Unverified 05/07/21 18:12 Active Meds: Active Medications Acetaminophen (Acetaminophen 325 Mg Tab) 650 mg PO Q4H PRN PRN Reason: Pain MILD(1-3)/Fever >100.5/CARROLL Ondansetron HCl (Ondansetron 4 Mg/2 Ml Inj) 4 mg IV Q8H PRN PRN Reason: Nausea And Vomiting Review of Systems Constitutional: weakness, malaise, no fever, no chills Ears, nose, mouth and throat: no nasal congestion, no sore throat Cardiovascular: no chest pain, no palpitations Respiratory: no cough, no shortness of breath Gastrointestinal: no abdominal pain, no nausea, no vomiting, no diarrhea Genitourinary Female: no pelvic pain, no flank pain, no dysuria, no hematuria Musculoskeletal: no neck pain, no low back pain Integumentary: no rash, no pruritis Neurological: other (Facial droop), no weakness (Left-sided), no headaches, no confusion, no gait dysfunction Psychiatric: no anxiety, no depression Endocrine: no polyphagia, no polydipsia, no polyuria, no nocturia Past History Past Medical History: hypertension, stroke Past Surgical History: No surgical history Social history: no significant social history Family history: no significant family history Medications and Allergies Allergies Allergy/AdvReac Type Severity Reaction Status Date / Time hydralazine AdvReac Intermediate Difficulty Verified 05/09/21 00:28 Breathing, chest heaviness Home Medications Medication Instructions Recorded Confirmed Last Taken Type No Known Home Medications [No 05/09/21 05/09/21 Unknown History Reported Home Medications] Active Meds: Active Medications Acetaminophen (Acetaminophen 325 Mg Tab) 650 mg PO Q4H PRN PRN Reason: Pain MILD(1-3)/Fever >100.5/[place] Atorvastatin Calcium (Atorvastatin 40 Mg Tab) 40 mg PO QHS [facility] Last Admin: 05/08/21 22:08 Dose: 40 mg Dextrose (Dextrose 50% In Water (25gm) 50 Ml Syringe) 0 ml IV Q30MIN PRN; Prot ocol PRN Reason: Hypoglycemia Heparin Sodium (Porcine) (Heparin 5,000 Unit/1 Ml Vial) 5,000 unit SUB-Q Q8HR [facility] Last Admin: 05/09/21 05:44 Dose: 5,000 unit Hydralazine HCl (Hydralazine 20 Mg/1 Ml Inj) 10 mg IV Q4HR PRN PRN Reason: Hypertension Last Admin: 05/08/21 22:20 Dose: 10 mg Hydrochlorothiazide (Hydrochlorothiazide 25 Mg Tab) 25 mg PO QDAY [facility] Last Admin: 05/08/21 11:42 Dose: 25 mg Sodium Chloride (Nacl 0.9% 1000 Ml) 1,000 mls @ 125 mls/hr IV DIRECT [facility] Last Admin: 05/09/21 05:45 Dose: 125 mls/hr Insulin Human Lispro (Insulin Lispro 100 Unit/Ml) 0 unit SUB-Q ACHS [facility]; Protocol Last Admin: 05/08/21 22:20 Dose: 2 unit Magnesium Hydroxide (Magnesium Hydroxide (Mom) Oral Liqd Udc) 30 ml PO Q4H PRN PRN Reason: Constipation Morphine Sulfate (Morphine 2 Mg/1 Ml Inj) 2 mg IV Q4H PRN PRN Reason: Pain, Moderate (4-6) Last Admin: 05/08/21 23:21 Dose: 2 mg Morphine Sulfate (Morphine 4 Mg/1 Ml Inj) 4 mg IV Q4H PRN PRN Reason: Pain , Severe (7-10) Ondansetron HCl (Ondansetron 4 Mg/2 Ml Inj) 4 mg IV Q8H PRN PRN Reason: Nausea And Vomiting Sodium Chloride (Sodium Chloride 0.9% 10 Ml Flush Syringe) 10 ml IV BID YOUSIF Last Admin: 05/08/21 22:21 Dose: 10 ml Sodium Chloride (Sodium Chloride 0.9% 10 Ml Flush Syringe) 10 ml IV PRN PRN PRN Reason: LINE FLUSH Physical Examination - Vital Signs Vital Signs: Vital Signs Temp Pulse Resp BP Pulse Ox 98.6 F 64 18 136/82 98 05/07/21 18:12 05/07/21 18:12 05/07/21 18:12 05/07/21 18:12 05/07/21 18:12 - Constitutional General appearance: comfortable - EENT EENT: Present: PERRL, mucous membranes moist - Respiratory Respiratory: Present: chest non-tender, lungs clear - Cardiovascular Cardiovascular: Present: regular rate, normal S1, normal S2 Extremities: Present: no peripheral edema bilatateraly, no clubbing, cyanosis - Gastrointestinal Gastrointestinal: Present: normoactive bowel sounds - Integumentary Integumentary: Present: normal - Neurologic Cranial nerve examination: PERRL, EOMI, facial droop Speech examination: intact Sensorimotor examination: intact Detailed motor examination: other (left is 3+/5 upper and lower with left facial droop , sensation is intact , gait not done) - Level of Consciousness 1a. Level of Consciousness: alert/keenly responsive - LOC Questions 1b. LOC Questions: answers both correctly - LOC Command 1c. LOC Commands: performs tasks correctly - Best Gaze 2. Best Gaze: normal - Visual 3. Visual: no visual loss - Facial Palsy 4. Facial Palsy: partial paralysis - Motor Arm 5a. Motor Arm Left: drift 5b. Motor Arm Right: no drift - Motor Leg 6a. Motor Leg Left: drift 6b. Motor Leg Right: no drift - Limb Ataxia 7. Limb Ataxia: absent - Sensory 8. Sensory: normal - Best Language 9. Best Language: no aphasia - Dysarthria 10. Dysarthria: normal - Extinction and Inattention 11. Extinction/Inattention: no abnormality - Scoring Total Score: 4 Stroke Severity: Minor Stroke Results - Laboratory Findings CBC and BMP: 05/08/21 03:42 05/08/21 03:42 Abnormal Lab Findings: Abnormal Labs 05/07/21 05/07/21 05/07/21 18:29 18:29 20:18 WBC 11.5 H Hgb 15.0 H Hct 45.7 H RDW 13.0 L Lymph % (Auto) 13.0 L Seg Neutrophils % 83.9 H Seg Neutrophils # 9.7 H D-Dimer 395.60 H Sodium 136 L Carbon Dioxide BUN 19 H Creatinine 0.5 L Glucose 312 H POC Glucose Hemoglobin A1c Calcium Lactate Dehydrogenase 05/07/21 05/07/21 05/07/21 20:18 21:49 23:57 WBC Hgb Hct RDW Lymph % (Auto) Seg Neutrophils % Seg Neutrophils # D-Dimer Sodium Carbon Dioxide BUN Creatinine Glucose 279 H POC Glucose 224 H Hemoglobin A1c 8.8 H Calcium Lactate Dehydrogenase 218 H 05/08/21 05/08/21 05/08/21 03:42 03:42 10:21 WBC Hgb Hct RDW Lymph % (Auto) Seg Neutrophils % 75.5 H Seg Neutrophils # D-Dimer Sodium Carbon Dioxide 20 L BUN Creatinine 0.4 L Glucose 203 H POC Glucose 172 H Hemoglobin A1c Calcium 8.3 L Lactate Dehydrogenase 05/08/21 05/08/21 05/09/21 17:58 21:54 07:49 WBC Hgb Hct RDW Lymph % (Auto) Seg Neutrophils % Seg Neutrophils # D-Dimer Sodium Carbon Dioxide BUN Creatinine Glucose POC Glucose 171 H 191 H 160 H Hemoglobin A1c Calcium Lactate Dehydrogenase Assessment and Plan Assessment and Plan - Patient Problems # Facial droop left side new associted with left side weakness findings is suggestive of lacunar infarct -Ct brain is remarkable for old lacunar infarct BG -started on ASA and Lipitor -MRI brain is pending -Echo is pending -LDL is pending -A1C#8.8 -CTA brain and neck -Pt/St evaluate -better control of BP> 24 hours to below 150/80 #Pneumonia Patient placed on empiric IV antibiotics. We will also check for COVID-19. # Dehydration -Will place on IV fluid and monitor BUN and creatinine. # Hyperglycemia Will place patient on a sliding scale insulin and monitor Accu-Cheks. Patient has no known history of diabetes mellitus. We will request diabetic teaching. Hemoglobin A1c is 8.8% # DVT prophylaxis -Will place patient on subcutaneous heparin. # Full code status -Patient is full code. will follow
[2021-05-09] MEDS: hydroCHLOROthiazide 25 MG TAB PO SCH (10:00)
--- NOTE | 2021-05-09 13:11 | Progress Note ---
Subjective Date of service: 05/09/21 Interval history: 76-year-old female with known history of hypertension and history of stroke in the past brought in by EMS today for evaluation of generalized weakness, mildly, unstable gait and left-sided facial droop. Patient has been having severe headache over the past 2 to 3 days. She denies any blurry vision, no diaphoresis. She denies any fever or chills. She has had some urinary frequency but denies any hematuria or dysuria. Patient was noted to have an elevated blood pressure with systolic in the 190s and diastolic in the 90s upon arrival of EMS. Blood sugar was 294. Work-up in the emergency room today, CT scan of the head shows 2 small deep infarctions in the right ganglia capsular distribution which are likely chronic. Otherwise no acute intracranial abnormality. Lab reveals mild leukocytosis of 11.5, BUN of 19 creatinine of 0.5 Chest x-ray shows probable right lower lobe pneumonia 05/08: Patient seen and examined this morning awaiting an MRI of the brain to rule out pulmonary embolism in the meantime I did a CTA of the chest because of elevated D-dimer and the concern for COVID-19 which has not been proven yet. It was negative for pulmonary embolism however showed severe coronary artery disease for which an outpatient care coordinator recommended. We will continue aspirin and statin therapy will obtain PT OT evaluation. Blood pressure still elevated which is likely contributing to the headache will start the patient on blood pressure control for better improvement. Anticipate discharge later today or first on the morning if MRI is negative I did also call the MRI department but no one was picking up. 05/09 patient is awake and alert and oriented x3. Complains of dizziness/spinning sensation. States headache is better. Neurology note reviewed. CT head and lab results reviewed. Awaiting MRI brain (1) Pneumonia Current Visit: Yes Status: Acute Plan to address problem: No evidence of pneumonia CTA chest results and chest x-ray We will discontinue IV antibiotics Tested negative for COVID-19 (2) Dehydration Current Visit: Yes Status: Acute Plan to address problem: Mild/likely secondary to thiazide diuretic (3) Encephalopathy, metabolic Current Visit: Yes Status: Acute Plan to address problem: Improved (4) Hyperglycemia-possibly new onset diabetes with elevated A1c will likely discharge on Metformin Current Visit: Yes Status: Acute Plan to address problem: Will place patient on a sliding scale insulin and monitor Accu-Cheks. Patient has no known history of diabetes mellitus. We will request diabetic teaching. Hemoglobin A1c is 8.8% (5) Facial droop with left upper extremity weakness Current Visit: Yes Status: Acute Plan to address problem: Neurology note reviewed CT head results reviewed MRI brain pending Continue telemetry Continue aspirin and high intensity statin PT/OT consult (6) hypertensive urgency -improved Continue HCTZ Discontinue as needed hydralazine as she is allergic to hydralazine (7) DVT prophylaxis Current Visit: No Status: Acute Plan to address problem: Will place patient on subcutaneous heparin. (7) Full code status Current Visit: No Status: Acute Plan to address problem: Patient is full code. Objective - Constitutional Vitals: Vital Signs - 12hr 05/09/21 05/09/21 05/09/21 02:02 05:00 05:38 Temperature 98.5 F Pulse Rate 64 66 Respiratory 16 Rate Blood Pressure 125/58 131/62 O2 Sat by Pulse 93 95 92 Oximetry - EENT Eyes: PERRL, EOM intact ENT: hearing intact - Neck Neck: supple, normal ROM - Respiratory Respiratory effort: normal Respiratory: bilateral: CTA - Cardiovascular Rhythm: regular Heart Sounds: Present: S1 & S2 Extremities: No edema - Gastrointestinal General gastrointestinal: Present: soft, non-tender Rectal Exam: deferred - Genitourinary Female genitourinary: deferred - Integumentary Integumentary: clear - Musculoskeletal Musculoskeletal: left sided weakness (Positive for left upper extremity drift and weak handgrip) - Psychiatric Psychiatric: appropriate mood/affect - Labs CBC & Chem 7: 05/08/21 03:42 05/08/21 03:42 Labs: Abnormal lab results 05/08/21 05/08/21 05/09/21 Range/Units 17:58 21:54 07:49 POC Glucose 171 H 191 H 160 H (70-105) mg/dL HEART Score - HEART Score Troponin: Troponin T < 0.010 ng/mL (0.00-0.029) 05/08/21 00:13
[2021-05-09] MEDS: ACETAMINOPHEN 325 MG TAB PO PRN (13:43)
[2021-05-09] MEDS: ASPIRIN 81 MG TAB CHEW PO SCH (13:43)
--- NOTE | 2021-05-09 13:55 | Vascular Lab Report ---
DUPLEX DOPPLER LOWER EXTREMITY VEINS, BILATERAL INDICATION / CLINICAL INFORMATION: ELEVATED D.DIMER. TECHNIQUE: Duplex doppler imaging was performed through the veins of both lower extremities using markie ous compression and other maneuvers. COMPARISON: None available. FINDINGS: RIGHT COMMON FEMORAL VEIN: Negative. RIGHT FEMORAL VEIN: Negative. RIGHT POPLITEAL VEIN: Negative. RIGHT CALF VEINS: Negative. LEFT COMMON FEMORAL VEIN: Negative. LEFT FEMORAL VEIN: Negative. LEFT POPLITEAL VEIN: Negative. LEFT CALF VEINS: Negative. ADDITIONAL FINDINGS: None. IMPRESSION: 1. No sonographic evidence for DVT in either lower extremity. Signer Name: Pradeep Parsons MD Signed: 05/09/2021 1:51 PM Workstation Name: [id number] [id number]
--- NOTE | 2021-05-09 14:41 | Magnetic Resonance Report ---
MR brain wo con INDICATION / CLINICAL INFORMATION: Left sided weakness. TECHNIQUE: Multiplanar, multisequence MR images of the brain were obtained. COMPARISON: CT head May 07, 2021. FINDINGS: INTRACRANIAL: Restricted diffusion in the right putamen and right mathews radiata. Mild sequela of chr onic microvascular disease. No hemorrhage. Ventricular caliber is normal. No extra-axial collection. No mass. No herniation. Major intracranial vascular flow voids are preserved. ORBITS: No significant abnormality of visualized orbits. SINUSES / MASTOIDS: No significant abnormality of visualized sinuses and mastoid air cells. ADDITIONAL FINDINGS: None. IMPRESSION: 1. Acute infarction in the right putamen and right mathews radiata. Signer Name: Emmett Perry MD Signed: 05/09/2021 2:36 PM Workstation Name: [id number]
[2021-05-10] MEDS: HEPARIN 5,000 UNIT/1 ML VIAL SUB-Q SCH ×3 (05:46→22:05)
[2021-05-10] MEDS: ACETAMINOPHEN 325 MG TAB PO PRN ×2 (06:39→12:00)
[2021-05-10] MEDS: INSULIN LISPRO 100 UNIT/ML SUB-Q SCH ×4 (07:30→23:42)
[2021-05-10] MEDS: metFORMIN 500 MG TAB PO SCH ×2 (11:55→17:32)
[2021-05-10] MEDS: ASPIRIN 81 MG TAB CHEW PO SCH (11:55)
[2021-05-10] MEDS: LOSARTAN 25 MG TAB PO SCH (11:55)
[2021-05-10] MEDS: hydroCHLOROthiazide 25 MG TAB PO SCH (11:56)
--- NOTE | 2021-05-10 11:57 | Event Note ---
Date: 05/10/21 pt. is undergoing test echo,US, MRI is noted right putamen infarct will follow am
[2021-05-10 14:08] LABS: BUN/Creatinine Ratio 36; Blood Urea Nitrogen 18 mg/dL (7-17); Calcium 9.8 mg/dL (8.4-10.2); Hemolysis Index 32
[2021-05-10 14:10] LABS: Chol/HDL Ratio 4.3 %
[2021-05-10] MEDS: MORPHINE 2 MG/1 ML INJ IV PRN (17:29)
--- NOTE | 2021-05-10 17:37 | Progress Note ---
Assessment and Plan Assessment and plan: #Pneumoniaresolved No evidence of pneumonia. Antibiotics discontinued. Coronavirus PCR negative #Nausea dehydration Mild/likely secondary to thiazide diuretic. -S/p IV fluid resuscitation #Acute metabolic encephalopathyimproved #Non-insulin dependent type II diabetes mellitus (newly diagnosed) - hemoglobin A1c: 8.8 - home regimen: None - current regimen: Starting metformin 500 mg twice daily - blood glucose goal 140-180 while inpatient - continue to monitor #Facial droop with left upper extremity weakness Neurology consulted; appreciate recs Negative CT head results. MRI brain positive for acute infarction in right putamen and right mathews radiata Continue telemetry, aspirin, and high intensity statin Consulted PT/OT; pending recs #Hypertensive urgency -improved Continue HCTZ Discontinue as needed hydralazine as she is allergic to hydralazine #Advanced care planning -Disease education conducted, care plan discussed, diagnoses discussed, prognosis discussed, and patient acknowledges understanding with care plan -Time: +30 min Disposition Plan: Continue medical management Total Time Spent with Patient (Minutes): 45 minutes History Interval history: No acute events overnight. Hospitalist Physical - Constitutional Vitals: Temp Pulse Resp BP Pulse Ox 98.1 F 67 18 168/86 94 05/10/21 00:00 05/10/21 00:00 05/10/21 00:00 05/10/21 00:00 05/10/21 07:50 General appearance: Present: no acute distress, well-nourished - EENT Eyes: Present: PERRL, EOM intact ENT: hearing intact, clear oral mucosa - Neck Neck: Present: supple, normal ROM - Respiratory Respiratory effort: normal - Cardiovascular Rhythm: regular Heart Sounds: Present: S1 & S2 - Extremities Extremities: no ischemia, pulses intact, pulses symmetrical, No edema, normal te mperature, normal color Peripheral Pulses: within normal limits - Abdominal General gastrointestinal: soft, non-tender, non-distended, normal bowel sounds - Integumentary Integumentary: Present: clear, warm, dry - Psychiatric Psychiatric: cooperative - Neurologic Neurologic: CNII-XII intact HEART Score - HEART Score Troponin: Troponin T < 0.010 ng/mL (0.00-0.029) 05/08/21 00:13 Results - Labs CBC & Chem 7: 05/08/21 03:42 05/10/21 13:15 Labs: Laboratory Last Values WBC 9.7 K/mm3 (4.5-11.0) 05/08/21 03:42 RBC 4.54 M/mm3 (3.65-5.03) 05/08/21 03:42 Hgb 13.8 gm/dl (10.1-14.3) 05/08/21 03:42 Hct 42.5 % (30.3-42.9) 05/08/21 03:42 MCV 94 fl (79-97) 05/08/21 03:42 MCH 31 pg (28-32) 05/08/21 03:42 MCHC 33 % (30-34) 05/08/21 03:42 RDW 13.2 % (13.2-15.2) 05/08/21 03:42 Plt Count 188 K/mm3 (140-440) 05/08/21 03:42 Lymph % (Auto) 19.5 % (13.4-35.0) 05/08/21 03:42 [place] % (Auto) 4.7 % (0.0-7.3) 05/08/21 03:42 Eos % (Auto) 0.0 % (0.0-4.3) 05/08/21 03:42 Baso % (Auto) 0.3 % (0.0-1.8) 05/08/21 03:42 Lymph # (Auto) 1.9 K/mm3 (1.2-5.4) 05/08/21 03:42 [place] # (Auto) 0.5 K/mm3 (0.0-0.8) 05/08/21 03:42 Eos # (Auto) 0.0 K/mm3 (0.0-0.4) 05/08/21 03:42 Baso # (Auto) 0.0 K/mm3 (0.0-0.1) 05/08/21 03:42 Seg Neutrophils % 75.5 % (40.0-70.0) H 05/08/21 03:42 Seg Neutrophils # 7.3 K/mm3 (1.8-7.7) 05/08/21 03:42 PT 12.9 Sec. (12.2-14.9) 05/07/21 18:29 INR 0.88 (0.87-1.13) 05/07/21 18:29 APTT 26.9 Sec. (24.2-36.6) 05/07/21 18:29 Thrombin Time 17.4 Sec. (15.1-19.6) 05/07/21 18:29 D-Dimer 395.60 ng/mlDDU (0-234) H 05/07/21 20:18 Sodium 137 mmol/L (137-145) 05/10/21 13:15 Potassium 3.5 mmol/L (3.6-5.0) L 05/10/21 13:15 Chloride 99.6 mmol/L (98-107) 05/10/21 13:15 Carbon Dioxide 22 mmol/L (22-30) 05/10/21 13:15 Anion Gap 19 mmol/L 05/10/21 13:15 BUN 18 mg/dL (7-17) H 05/10/21 13:15 Creatinine 0.5 mg/dL (0.6-1.2) L 05/10/21 13:15 Estimated GFR > 60 ml/min 05/10/21 13:15 BUN/Creatinine Ratio 36 % 05/10/21 13:15 Glucose 212 mg/dL (65-100) H 05/10/21 13:15 POC Glucose 135 mg/dL (70-105) H 05/10/21 16:17 Hemoglobin A1c 8.8 % (4-6) H 05/07/21 21:49 Lactic Acid 1.90 mmol/L (0.7-2.0) 05/07/21 19:04 Calcium 9.8 mg/dL (8.4-10.2) D 05/10/21 13:15 Magnesium 2.20 mg/dL (1.7-2.3) 05/07/21 18:29 Ferritin 123.6 ng/mL (10.0-200.0) 05/07/21 20:18 Total Bilirubin 0.40 mg/dL (0.1-1.2) 05/07/21 18:29 Direct Bilirubin < 0.2 mg/dL (0-0.2) 05/07/21 18:29 Indirect Bilirubin 0.2 mg/dL 05/07/21 18:29 AST 21 units/L (5-40) 05/07/21 18:29 ALT 23 units/L (7-56) 05/07/21 18:29 Alkaline Phosphatase 71 units/L (35-129) 05/07/21 18:29 Ammonia 31.0 umol/L (25-60) 05/07/21 19:04 Lactate Dehydrogenase 218 units/L (91-180) H 05/07/21 20:18 Total Creatine Kinase 73 units/L (30-135) 05/07/21 18:29 CK-MB (CK-2) 1.7 ng/mL (0.0-4.0) 05/07/21 18:29 CK-MB (CK-2) Rel Index 2.3 (0-4) 05/07/21 18:29 Troponin T < 0.010 ng/mL (0.00-0.029) 05/08/21 00:13 C-Reactive Protein 0.10 mg/dL (0.00-1.30) 05/07/21 20:18 Total Protein 7.6 g/dL (6.3-8.2) 05/07/21 18:29 Albumin 4.4 g/dL (3.9-5) 05/07/21 18:29 Albumin/Globulin Ratio 1.4 % 05/07/21 18:29 Triglycerides 157 mg/dL (2-149) H 05/10/21 13:15 Cholesterol 237 mg/dL (50-199) H 05/10/21 13:15 LDL Cholesterol Direct 166 mg/dL (50-130) H 05/10/21 13:15 HDL Cholesterol 55 mg/dL (40-59) 05/10/21 13:15 Cholesterol/HDL Ratio 4.30 % 05/10/21 13:15 Procalcitonin < 0.05 ng/mL (<0.15) 05/07/21 20:18 Urine Color Yellow (Yellow) 05/07/21 Unknown Urine Turbidity Clear (Clear) 05/07/21 Unknown Urine pH 7.0 (5.0-7.0) 05/07/21 Unknown Ur Specific [place] 1.015 (1.003-1.030) 05/07/21 Unknown Urine Protein <15 mg/dl mg/dL (Negative) 05/07/21 Unknown Urine Glucose (UA) >=500 mg/dL (Negative) 05/07/21 Unknown Urine Ketones Neg mg/dL (Negative) 05/07/21 Unknown Urine Blood Neg (Negative) 05/07/21 Unknown Urine Nitrite Neg (Negative) 05/07/21 Unknown Urine Bilirubin Neg (Negative) 05/07/21 Unknown Urine Urobilinogen < 2.0 mg/dL (<2.0) 05/07/21 Unknown Ur Leukocyte Esterase Neg (Negative) 05/07/21 Unknown Urine WBC (Auto) 1.0 /HPF (0.0-6.0) 05/07/21 Unknown Urine RBC (Auto) 2.0 /HPF (0.0-6.0) 05/07/21 Unknown U Epithel Cells (Auto) < 1.0 /HPF (0-13.0) 05/07/21 Unknown Urine Yeast (Budding) Few /HPF 05/07/21 Unknown Urine Opiates Screen Negative 05/07/21 Unknown Urine Methadone Screen Negative 05/07/21 Unknown Ur Barbiturates Screen Negative 05/07/21 Unknown Ur Phencyclidine Scrn Negative 05/07/21 Unknown Ur Amphetamines Screen Negative 05/07/21 Unknown U Benzodiazepines Scrn Negative 05/07/21 Unknown Urine Cocaine Screen Negative 05/07/21 Unknown U Marijuana (THC) Screen Negative 05/07/21 Unknown Drugs of Abuse Note Disclamer 05/07/21 Unknown Plasma/Serum Alcohol < 0.01 % (0-0.07) 05/07/21 19:04 Coronavirus (PCR) Negative (Negative) 05/08/21 08:20 Microbiology: Microbiology 05/07/21 19:04 Peripheral/Venous Blood Culture - Preliminary NO GROWTH AFTER 48 HOURS 05/07/21 19:12 Peripheral/Venous Blood Culture - Preliminary NO GROWTH AFTER 48 HOURS Sharp/IV: Voiding Method Indwelling Catheter Active Medications - Current Medications Current Medications: Generic Name Dose Route Start Last Admin Trade Name Freq PRN Reason Stop Dose Admin Acetaminophen 650 mg 05/07/21 21:49 05/10/21 12:00 Acetaminophen 325 Mg Tab PO 650 mg Q4H PRN Administration Pain MILD(1-3)/Fever >100.5/CARROLL Aspirin 81 mg 05/09/21 14:00 05/10/21 11:55 Aspirin 81 Mg Tab Chew PO 81 mg QDAY YOUSIF Administration Atorvastatin Calcium 40 mg 05/08/21 22:00 05/09/21 21:19 Atorvastatin 40 Mg Tab PO 40 mg QHS YOUSIF Administration Dextrose 0 ml 05/07/21 21:49 Dextrose 50% In Water (25gm) 50 Ml Syringe IV Q30MIN PRN Hypoglycemia Protocol Heparin Sodium (Porcine) 5,000 unit 05/08/21 06:00 05/10/21 13:07 Heparin 5,000 Unit/1 Ml Vial SUB-Q 5,000 unit Q8HR YOUSIF Administration Hydrochlorothiazide 25 mg 05/08/21 10:00 05/10/21 11:56 Hydrochlorothiazide 25 Mg Tab PO 25 mg QDAY YOUSIF Administration Sodium Chloride 1,000 mls @ 50 mls/hr 05/07/21 22:00 05/09/21 05:45 Nacl 0.9% 1000 Ml IV 125 mls/hr DIRECT YOUSIF Administration Insulin Human Lispro 0 unit 05/07/21 22:00 05/10/21 16:23 Insulin Lispro 100 Unit/Ml SUB-Q Not Given ACHS YOUSIF Protocol Losartan Potassium 25 mg 05/10/21 10:00 05/10/21 11:55 Losartan 25 Mg Tab PO 25 mg QDAY YOUSIF Administration Magnesium Hydroxide 30 ml 05/07/21 21:49 Magnesium Hydroxide (Mom) Oral Liqd Udc PO Q4H PRN Constipation Metformin HCl 500 mg 05/10/21 08:30 05/10/21 11:55 Metformin 500 Mg Tab PO 500 mg BIDDIAB YOUSIF Administration Morphine Sulfate 2 mg 05/07/21 21:49 05/08/21 23:21 Morphine 2 Mg/1 Ml Inj IV 2 mg Q4H PRN Administration Pain, Moderate (4-6) Morphine Sulfate 4 mg 05/07/21 21:49 Morphine 4 Mg/1 Ml Inj IV Q4H PRN Pain , Severe (7-10) Ondansetron HCl 4 mg 05/07/21 21:49 Ondansetron 4 Mg/2 Ml Inj IV Q8H PRN Nausea And Vomiting Sodium Chloride 10 ml 05/07/21 22:00 05/10/21 11:56 Sodium Chloride 0.9% 10 Ml Flush Syringe IV 10 ml BID YOUSIF Administration Sodium Chloride 10 ml 05/07/21 21:49 Sodium Chloride 0.9% 10 Ml Flush Syringe IV PRN PRN LINE FLUSH Nutrition/Malnutrition Assess - Dietary Evaluation Nutrition/Malnutrition Findings: Nutrition Notes Start: 05/08/21 11:27 Freq: Status: Active Protocol: Document 05/10/21 09:29 MANUEL (Rec: 05/10/21 09:59 MAN[id number]) Nutrition Notes Need for Assessment generated from: supervisory it specialist Initial or Follow up Assessment Current Diagnosis Hypertension,Hyperlipidemia Other Pertinent Diagnosis Metabolic encephalopathy, CVA, Hyperglycemia, COVID-19 pui. Current Diet Cardiac/Consistent Carbohydrates Diet (since B ). Labs/Tests 05/08: CO2 20, Crea 0.4, Glu 203, Ca 8.3, HbA1c 8.8. Pertinent Medications 05/09: Insulin, others nutritionally unremarkable. Height 5 ft 3 in Weight 69.4 kg [place] Body Weight (kg) 52.27 BMI 27.1 Intake Prior to Admission Good Weight change and time frame At admission, no recent weight loss reported. 3.629 Kg body weight gained in 2 days reported. Weight Status Overweight Subjective/Other Information RD consult for Routine F/U on nutrition education, and RN request for Skin risk assessment. Pt shown no signs of concern for skin risk at the time, according to Physical Assessment History notes. No report available on Pt's PO intake of meals at the time. Pt is still under investigation for COVID-19 infection, not a candidate for nutrition education at the time. F/U to assess feasibility for Nutrition education. Percent of energy/protein needs met: Prescribed Cardiac/Consistent Carbohydrates Diet provides for energy/protein needs (1, 977 Kcal/86 g) during LOS. Burn Absent Trauma Absent GI Symptoms None Food Allergy No Skin Integrity/Comment Clear, warm, dry. Minimum of two criteria No Is patient on ventilator? No Is Patient Ambulatory and/or Out of Bed Yes REE-([facility]-ambulatory/OOB) [ 1486.069 [id number]] Kcal/Kg value to use for calculation 16 Approximate Energy Requirements Using 1110 kcal/Kg Calculation Used for Recommendations Kcal/kg Additional Notes Protein: 1-1.2 g/Kg; 69-83 g/ day. Fluids: 1 ml/Kcal, or as per MD. Nutrition Intervention Change Diet Order: Continue Cardiac/Consistent Carbohydrates Diet Follow-Up By: 05/17/21 Additional Comments Continue monitoring food tolerance, %PO intake of meals , and BM.
--- NOTE | 2021-05-10 20:07 | Vascular Lab Report ---
DUPLEX DOPPLER ULTRASOUND CAROTID, BILATERAL INDICATION / CLINICAL INFORMATION: cva. COMPARISON: None available. FINDINGS: RIGHT CAROTID: Mild plaque at the bulb. - PLAQUE ESTIMATE (%): < 50% - CCA velocity: 82 cm/sec. - ICA peak systolic velocity: 74 cm/sec. - ICA/CCA PSV Ratio: Less than 2 Right Vertebral Artery: Antegrade flow. LEFT CAROTID: - PLAQUE ESTIMATE: < 50% - CCA velocity: 95 cm/sec. - ICA peak systolic velocity: 62 cm/sec. - ICA/CCA PSV Ratio: Less than 2 Left Vertebral Artery: Antegrade flow. IMPRESSION: 1. Right Internal Carotid Artery: Less than 50% diameter stenosis. 2. Left Internal Carotid Artery: Less than 50% diameter stenosis. Velocity criteria are extrapolated from diameter data as defined by the Society of Radiologists in Ul trasound Consensus Conference, Radiology 2003; 229;340-346. NO STENOSIS (NORMAL) * Plaque = none; ICA PSV < 125 cm/sec; ICA/CCA PSV Ratio < 2.0 <50% STENOSIS * Plaque < 50%; ICA PSV < 125 cm/sec; ICA/CCA PSV Ratio < 2.0 50-69% STENOSIS * Plaque > 50%; ICA PSV = 125-230 cm/sec; ICA/CCA PSV Ratio = 2.0-4.0 >70% BUT <100% STENOSIS * Plaque > 50%; ICA PSV > 230 cm/sec; ICA/CCA PSV Ratio > 4.0 NEAR OCCLUSION * Plaque = visible lumen; ICA PSV = high/low/none; ICA/CCA PSV Ratio = variable TOTAL OCCLUSION * Plaque = no lumen; ICA PSV = none; ICA/CCA PSV Ratio = N/A Signer Name: Daniel Aguirre MD Signed: 05/10/2021 8:03 PM Workstation Name: [id number]
[2021-05-10] MEDS: SODIUM CHLORIDE 0.9% 1000 ML 1,000 ML IV SCH (22:07)
[2021-05-10] MEDS ORDERED: oxyCODONE /ACETAMINOPHEN 5-325MG TAB PO ONE (22:50)
[2021-05-11] MEDS: SODIUM CHLORIDE 0.9% 1000 ML 1,000 ML IV SCH (06:00)
[2021-05-11] MEDS: HEPARIN 5,000 UNIT/1 ML VIAL SUB-Q SCH ×3 (06:01→21:20)
[2021-05-11] MEDS ORDERED: oxyCODONE /ACETAMINOPHEN 5-325MG TAB PO ONE (06:26)
[2021-05-11] MEDS: MECLIZINE 12.5 MG TAB PO PRN (07:01)
[2021-05-11] MEDS: INSULIN LISPRO 100 UNIT/ML SUB-Q SCH ×4 (07:23→23:03)
--- NOTE | 2021-05-11 08:35 | Electrocardiograph Report ---
[facility] Test Date: 2021-05-07 Test Time: 20:04:29 Pat Name: SAM MOLINA Department: Room: A391 Gender: F Video Intern: JORGE : 1945 Requested By: MAITE SALAZAR Order Number: [id number] Reading MD: Michael Jackson Measurements Intervals [place] Rate: 66 P: 110 MA: 151 QRS: 80 QRSD: 89 T: 34 QT: 427 QTc: 448 Interpretive Statements Sinus rhythm No previous ECG available for comparison Electronically Signed On 05-11-2021 8:35:42 EST by Michael Jackson
[2021-05-11] MEDS: ASPIRIN 81 MG TAB CHEW PO SCH (11:25)
[2021-05-11] MEDS: hydroCHLOROthiazide 25 MG TAB PO SCH (11:25)
[2021-05-11] MEDS: LOSARTAN 25 MG TAB PO SCH (11:25)
[2021-05-11] MEDS: metFORMIN 500 MG TAB PO SCH ×2 (11:25→17:15)
--- NOTE | 2021-05-11 12:03 | Progress Note ---
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 #Pneumonia Patient placed on empiric IV antibiotics. COVID-19.is negative # Dehydration -Will place on IV fluid and monitor BUN and creatinine. # Hyperglycemia Will place patient on a sliding scale insulin and monitor Accu-Cheks. Patient has no known history of diabetes mellitus. We will request diabetic teaching. Hemoglobin A1c is 8.8% # DVT prophylaxis -Will place patient on subcutaneous heparin. # Full code status -Patient is full code. will sign off john control BP ,BS and rehabilitation increase Lipitor to 80 mg celexa 10 mg Subjective Date of service: 05/11/21 Principal diagnosis: left side weakness Interval history: she is awake oriented some what is depressed did not eat her breakfast LDL#166 US carotid <50% bilateral [id number] EF on ASA 81 mg and Lipitor 40 mg BP today 159/64 Objective - Vital Sign Vital Signs - 12hr 05/11/21 05/11/21 05:45 11:25 Temperature 98.5 F Pulse Rate 58 L Respiratory 18 Rate Blood Pressure 136/64 130/60 O2 Sat by Pulse 95 Oximetry - General Apperance Constitutional: comfortable - EENT EENT: PERRL, mucous membranes moist - Respiratory Respiratory: lungs clear, rhonchi - Cardiovascular Cardiovascular: regular rate, normal S1, normal S2 Extremities: no peripheral edema bilat, no clubbing, cyanosis - Gastrointestinal Gastrointestinal: normoactive bowel sounds - Integumentary Integumentary: normal - Neurologic Cranial nerve examination: PERRL, EOMI, facial droop Speech examination: intact Detailed motor examination: other (left upper 3/5 lower 3+/5 , gait unable to do) Motor examination - right side: 15: biceps, triceps, wrist flexion, wrist extension, meteorologist liaison, hip flexors, knee extensors, dorsiflexion, toe extension (EHL), plantarflexion - Laboratory Findings CBC and BMP: 05/08/21 03:42 05/10/21 13:15 Abnormal Lab Findings: Abnormal Labs 05/07/21 05/07/21 05/07/21 18:29 18:29 20:18 WBC 11.5 H Hgb 15.0 H Hct 45.7 H RDW 13.0 L Lymph % (Auto) 13.0 L Seg Neutrophils % 83.9 H Seg Neutrophils # 9.7 H D-Dimer 395.60 H Sodium 136 L Potassium Carbon Dioxide BUN 19 H Creatinine 0.5 L Glucose 312 H POC Glucose Hemoglobin A1c Calcium Lactate Dehydrogenase Triglycerides Cholesterol LDL Cholesterol Direct 05/07/21 05/07/21 05/07/21 20:18 21:49 23:57 WBC Hgb Hct RDW Lymph % (Auto) Seg Neutrophils % Seg Neutrophils # D-Dimer Sodium Potassium Carbon Dioxide BUN Creatinine Glucose 279 H POC Glucose 224 H Hemoglobin A1c 8.8 H Calcium Lactate Dehydrogenase 218 H Triglycerides Cholesterol LDL Cholesterol Direct 05/08/21 05/08/21 05/08/21 03:42 03:42 10:21 WBC Hgb Hct RDW Lymph % (Auto) Seg Neutrophils % 75.5 H Seg Neutrophils # D-Dimer Sodium Potassium Carbon Dioxide 20 L BUN Creatinine 0.4 L Glucose 203 H POC Glucose 172 H Hemoglobin A1c Calcium 8.3 L Lactate Dehydrogenase Triglycerides Cholesterol LDL Cholesterol Direct 05/08/21 05/08/21 05/09/21 17:58 21:54 07:49 WBC Hgb Hct RDW Lymph % (Auto) Seg Neutrophils % Seg Neutrophils # D-Dimer Sodium Potassium Carbon Dioxide BUN Creatinine Glucose POC Glucose 171 H 191 H 160 H Hemoglobin A1c Calcium Lactate Dehydrogenase Triglycerides Cholesterol LDL Cholesterol Direct 05/09/21 05/09/21 05/10/21 16:11 22:45 07:45 WBC Hgb Hct RDW Lymph % (Auto) Seg Neutrophils % Seg Neutrophils # D-Dimer Sodium Potassium Carbon Dioxide BUN Creatinine Glucose POC Glucose 177 H 206 H 167 H Hemoglobin A1c Calcium Lactate Dehydrogenase Triglycerides Cholesterol LDL Cholesterol Direct 05/10/21 05/10/21 05/10/21 12:25 13:15 13:15 WBC Hgb Hct RDW Lymph % (Auto) Seg Neutrophils % Seg Neutrophils # D-Dimer Sodium Potassium 3.5 L Carbon Dioxide BUN 18 H Creatinine 0.5 L Glucose 212 H POC Glucose 203 H Hemoglobin A1c Calcium Lactate Dehydrogenase Triglycerides 157 H Cholesterol 237 H LDL Cholesterol Direct 166 H 05/10/21 05/10/21 05/11/21 16:17 20:11 08:33 WBC Hgb Hct RDW Lymph % (Auto) Seg Neutrophils % Seg Neutrophils # D-Dimer Sodium Potassium Carbon Dioxide BUN Creatinine Glucose POC Glucose 135 H 156 H 180 H Hemoglobin A1c Calcium Lactate Dehydrogenase Triglycerides Cholesterol LDL Cholesterol Direct 05/11/21 11:11 WBC Hgb Hct RDW Lymph % (Auto) Seg Neutrophils % Seg Neutrophils # D-Dimer Sodium Potassium Carbon Dioxide BUN Creatinine Glucose POC Glucose 163 H Hemoglobin A1c Calcium Lactate Dehydrogenase Triglycerides Cholesterol LDL Cholesterol Direct
--- NOTE | 2021-05-11 14:42 | Progress Note ---
Assessment and Plan Assessment and plan: #Pneumoniaresolved No evidence of pneumonia. Antibiotics discontinued. Coronavirus PCR negative #Nausea dehydration Mild/likely secondary to thiazide diuretic. -S/p IV fluid resuscitation #Acute metabolic encephalopathyimproved #Non-insulin dependent type II diabetes mellitus (newly diagnosed) - hemoglobin A1c: 8.8 - home regimen: None - current regimen: Continue metformin 500 mg twice daily - blood glucose goal 140-180 while inpatient - continue to monitor #Facial droop with left upper extremity weakness Neurology consulted; appreciate recs Negative CT head results. MRI brain positive for acute infarction in right putamen and right mathews radiata Continue telemetry, aspirin, and high intensity statin Consulted PT/OT; [facility]. Pending acceptance. #Hypertensive urgency -improved Continue HCTZ Discontinue as needed hydralazine as she is allergic to hydralazine #Advanced care planning -Disease education conducted, care plan discussed, diagnoses discussed, prognosis discussed, and patient acknowledges understanding with care plan -Time: +30 min Disposition Plan: Continue medical management Total Time Spent with Patient (Minutes): 45 minutes History Interval history: No acute events over night. The patient denies fevers, chills, nausea, vomiting, abdominal pain, chest pain/pressure, shortness of breath, urinary symptoms, weakness, or confusion. Hospitalist Physical - Constitutional Vitals: Temp Pulse Resp BP Pulse Ox 98.3 F 56 L 20 173/79 95 05/11/21 11:44 05/11/21 11:44 05/11/21 11:44 05/11/21 11:44 05/11/21 11:44 General appearance: Present: no acute distress, well-nourished - EENT Eyes: Present: PERRL, EOM intact ENT: hearing intact, clear oral mucosa, dentition normal - Neck Neck: Present: supple, normal ROM - Respiratory Respiratory effort: normal Respiratory: bilateral: CTA - Cardiovascular Rhythm: regular Heart Sounds: Present: S1 & S2 - Extremities Extremities: no ischemia, pulses intact, pulses symmetrical, No edema, normal temperature, normal color Peripheral Pulses: within normal limits - Abdominal General gastrointestinal: soft, non-tender, non-distended, normal bowel sounds - Integumentary Integumentary: Present: clear, warm, dry - Psychiatric Psychiatric: appropriate mood/affect, intact judgment & insight, cooperative - Neurologic Neurologic: CNII-XII intact, focal deficits (Left-sided weakness) - Allied Health Allied health notes reviewed: nursing HEART Score - HEART Score Troponin: Troponin T < 0.010 ng/mL (0.00-0.029) 05/08/21 00:13 Results - Labs CBC & Chem 7: 05/08/21 03:42 05/10/21 13:15 Labs: Laboratory Last Values WBC 9.7 K/mm3 (4.5-11.0) 05/08/21 03:42 RBC 4.54 M/mm3 (3.65-5.03) 05/08/21 03:42 Hgb 13.8 gm/dl (10.1-14.3) 05/08/21 03:42 Hct 42.5 % (30.3-42.9) 05/08/21 03:42 MCV 94 fl (79-97) 05/08/21 03:42 MCH 31 pg (28-32) 05/08/21 03:42 MCHC 33 % (30-34) 05/08/21 03:42 RDW 13.2 % (13.2-15.2) 05/08/21 03:42 Plt Count 188 K/mm3 (140-440) 05/08/21 03:42 Lymph % (Auto) 19.5 % (13.4-35.0) 05/08/21 03:42 [place] % (Auto) 4.7 % (0.0-7.3) 05/08/21 03:42 Eos % (Auto) 0.0 % (0.0-4.3) 05/08/21 03:42 Baso % (Auto) 0.3 % (0.0-1.8) 05/08/21 03:42 Lymph # (Auto) 1.9 K/mm3 (1.2-5.4) 05/08/21 03:42 [place] # (Auto) 0.5 K/mm3 (0.0-0.8) 05/08/21 03:42 Eos # (Auto) 0.0 K/mm3 (0.0-0.4) 05/08/21 03:42 Baso # (Auto) 0.0 K/mm3 (0.0-0.1) 05/08/21 03:42 Seg Neutrophils % 75.5 % (40.0-70.0) H 05/08/21 03:42 Seg Neutrophils # 7.3 K/mm3 (1.8-7.7) 05/08/21 03:42 PT 12.9 Sec. (12.2-14.9) 05/07/21 18:29 INR 0.88 (0.87-1.13) 05/07/21 18:29 APTT 26.9 Sec. (24.2-36.6) 05/07/21 18:29 Thrombin Time 17.4 Sec. (15.1-19.6) 05/07/21 18:29 D-Dimer 395.60 ng/mlDDU (0-234) H 05/07/21 20:18 Sodium 137 mmol/L (137-145) 05/10/21 13:15 Potassium 3.5 mmol/L (3.6-5.0) L 05/10/21 13:15 Chloride 99.6 mmol/L (98-107) 05/10/21 13:15 Carbon Dioxide 22 mmol/L (22-30) 05/10/21 13:15 Anion Gap 19 mmol/L 05/10/21 13:15 BUN 18 mg/dL (7-17) H 05/10/21 13:15 Creatinine 0.5 mg/dL (0.6-1.2) L 05/10/21 13:15 Estimated GFR > 60 ml/min 05/10/21 13:15 BUN/Creatinine Ratio 36 % 05/10/21 13:15 Glucose 212 mg/dL (65-100) H 05/10/21 13:15 POC Glucose 163 mg/dL (70-105) H 05/11/21 11:11 Hemoglobin A1c 8.8 % (4-6) H 05/07/21 21:49 Lactic Acid 1.90 mmol/L (0.7-2.0) 05/07/21 19:04 Calcium 9.8 mg/dL (8.4-10.2) D 05/10/21 13:15 Magnesium 2.20 mg/dL (1.7-2.3) 05/07/21 18:29 Ferritin 123.6 ng/mL (10.0-200.0) 05/07/21 20:18 Total Bilirubin 0.40 mg/dL (0.1-1.2) 05/07/21 18:29 Direct Bilirubin < 0.2 mg/dL (0-0.2) 05/07/21 18:29 Indirect Bilirubin 0.2 mg/dL 05/07/21 18:29 AST 21 units/L (5-40) 05/07/21 18:29 ALT 23 units/L (7-56) 05/07/21 18:29 Alkaline Phosphatase 71 units/L (35-129) 05/07/21 18:29 Ammonia 31.0 umol/L (25-60) 05/07/21 19:04 Lactate Dehydrogenase 218 units/L (91-180) H 05/07/21 20:18 Total Creatine Kinase 73 units/L (30-135) 05/07/21 18:29 CK-MB (CK-2) 1.7 ng/mL (0.0-4.0) 05/07/21 18:29 CK-MB (CK-2) Rel Index 2.3 (0-4) 05/07/21 18:29 Troponin T < 0.010 ng/mL (0.00-0.029) 05/08/21 00:13 C-Reactive Protein 0.10 mg/dL (0.00-1.30) 05/07/21 20:18 Total Protein 7.6 g/dL (6.3-8.2) 05/07/21 18:29 Albumin 4.4 g/dL (3.9-5) 05/07/21 18:29 Albumin/Globulin Ratio 1.4 % 05/07/21 18:29 Triglycerides 157 mg/dL (2-149) H 05/10/21 13:15 Cholesterol 237 mg/dL (50-199) H 05/10/21 13:15 LDL Cholesterol Direct 166 mg/dL (50-130) H 05/10/21 13:15 HDL Cholesterol 55 mg/dL (40-59) 05/10/21 13:15 Cholesterol/HDL Ratio 4.30 % 05/10/21 13:15 Procalcitonin < 0.05 ng/mL (<0.15) 05/07/21 20:18 Urine Color Yellow (Yellow) 05/07/21 Unknown Urine Turbidity Clear (Clear) 05/07/21 Unknown Urine pH 7.0 (5.0-7.0) 05/07/21 Unknown Ur Specific Pace 1.015 (1.003-1.030) 05/07/21 Unknown Urine Protein <15 mg/dl mg/dL (Negative) 05/07/21 Unknown Urine Glucose (UA) >=500 mg/dL (Negative) 05/07/21 Unknown Urine Ketones Neg mg/dL (Negative) 05/07/21 Unknown Urine Blood Neg (Negative) 05/07/21 Unknown Urine Nitrite Neg (Negative) 05/07/21 Unknown Urine Bilirubin Neg (Negative) 05/07/21 Unknown Urine Urobilinogen < 2.0 mg/dL (<2.0) 05/07/21 Unknown Ur Leukocyte Esterase Neg (Negative) 05/07/21 Unknown Urine WBC (Auto) 1.0 /HPF (0.0-6.0) 05/07/21 Unknown Urine RBC (Auto) 2.0 /HPF (0.0-6.0) 05/07/21 Unknown U Epithel Cells (Auto) < 1.0 /HPF (0-13.0) 05/07/21 Unknown Urine Yeast (Budding) Few /HPF 05/07/21 Unknown Urine Opiates Screen Negative 05/07/21 Unknown Urine Methadone Screen Negative 05/07/21 Unknown Ur Barbiturates Screen Negative 05/07/21 Unknown Ur Phencyclidine Scrn Negative 05/07/21 Unknown Ur Amphetamines Screen Negative 05/07/21 Unknown U Benzodiazepines Scrn Negative 05/07/21 Unknown Urine Cocaine Screen Negative 05/07/21 Unknown U Marijuana (THC) Screen Negative 05/07/21 Unknown Drugs of Abuse Note Disclamer 05/07/21 Unknown Plasma/Serum Alcohol < 0.01 % (0-0.07) 05/07/21 19:04 Coronavirus (PCR) Negative (Negative) 05/08/21 08:20 Microbiology: Microbiology 05/07/21 19:04 Peripheral/Venous Blood Culture - Preliminary NO GROWTH AFTER 72 HOURS 05/07/21 19:12 Peripheral/Venous Blood Culture - Preliminary NO GROWTH AFTER 72 HOURS Sharp/IV: Voiding Method Indwelling Catheter Active Medications - Current Medications Current Medications: Generic Name Dose Route Start Last Admin Trade Name Freq PRN Reason Stop Dose Admin Acetaminophen 650 mg 05/07/21 21:49 05/10/21 12:00 Acetaminophen 325 Mg Tab PO 650 mg Q4H PRN Administration Pain MILD(1-3)/Fever >100.5/CARROLL Aspirin 81 mg 05/09/21 14:00 05/11/21 11:25 Aspirin 81 Mg Tab Chew PO 81 mg QDAY YOUSIF Administration Atorvastatin Calcium 80 mg 05/11/21 22:00 Atorvastatin 40 Mg Tab PO QHS YOUSIF Citalopram Hydrobromide 10 mg 05/11/21 14:00 Citalopram 10 Mg Tab PO QDAY YOUSIF Dextrose 0 ml 05/07/21 21:49 Dextrose 50% In Water (25gm) 50 Ml Syringe IV Q30MIN PRN Hypoglycemia Protocol Heparin Sodium (Porcine) 5,000 unit 05/08/21 06:00 05/11/21 14:06 Heparin 5,000 Unit/1 Ml Vial SUB-Q 5,000 unit Q8HR YOUSIF Administration Hydrochlorothiazide 25 mg 05/08/21 10:00 05/11/21 11:25 Hydrochlorothiazide 25 Mg Tab PO 25 mg QDAY YOUSIF Administration Sodium Chloride 1,000 mls @ 50 mls/hr 05/07/21 22:00 05/11/21 06:00 Nacl 0.9% 1000 Ml IV 125 mls/hr DIRECT YOUSIF Administration Insulin Human Lispro 0 unit 05/07/21 22:00 05/11/21 11:24 Insulin Lispro 100 Unit/Ml SUB-Q 2 unit ACHS YOUSIF Administration Protocol Losartan Potassium 25 mg 05/10/21 10:00 05/11/21 11:25 Losartan 25 Mg Tab PO 25 mg QDAY YOUSIF Administration Magnesium Hydroxide 30 ml 05/07/21 21:49 Magnesium Hydroxide (Mom) Oral Liqd Udc PO Q4H PRN Constipation Meclizine HCl 12.5 mg 05/11/21 06:06 05/11/21 07:01 Meclizine 12.5 Mg Tab PO 12.5 mg Q12H PRN Administration Vertigo Metformin HCl 500 mg 05/10/21 08:30 05/11/21 11:25 Metformin 500 Mg Tab PO 500 mg BIDDIAB YOUSIF Administration Morphine Sulfate 2 mg 05/07/21 21:49 05/10/21 17:29 Morphine 2 Mg/1 Ml Inj IV 2 mg Q4H PRN Administration Pain, Moderate (4-6) Morphine Sulfate 4 mg 05/07/21 21:49 Morphine 4 Mg/1 Ml Inj IV Q4H PRN Pain , Severe (7-10) Ondansetron HCl 4 mg 05/07/21 21:49 Ondansetron 4 Mg/2 Ml Inj IV Q8H PRN Nausea And Vomiting Sodium Chloride 10 ml 05/07/21 22:00 05/11/21 11:25 Sodium Chloride 0.9% 10 Ml Flush Syringe IV 10 ml BID YOUSIF Administration Sodium Chloride 10 ml 05/07/21 21:49 Sodium Chloride 0.9% 10 Ml Flush Syringe IV PRN PRN LINE FLUSH Nutrition/Malnutrition Assess - Dietary Evaluation Nutrition/Malnutrition Findings: Nutrition Notes Start: 05/08/21 11:27 Freq: Status: Active Protocol: Document 05/10/21 09:29 MANUEL (Rec: 05/10/21 09:59 MANUEL [id number]) Nutrition Notes 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 Current Diet Cardiac/Consistent Carbohydrates Diet (since B ). Labs/Tests 05/08: CO2 20, Crea 0.4, Glu 203, Ca 8.3, HbA1c 8.8. Pertinent Medications 05/09: Insulin, others nutritionally unremarkable. Height 5 ft 3 in Weight 69.4 kg [place] Body Weight (kg) 52.27 BMI 27.1 Intake Prior to Admission Good Weight change and time frame At admission, no recent weight loss reported. 3.629 Kg body weight gained in 2 days reported. Weight Status Overweight Subjective/Other Information RD consult for Routine F/U on nutrition education, and RN request for Skin risk assessment. Pt shown no signs of concern for skin risk at the time, according to Physical Assessment History notes. No report available on Pt's PO intake of meals at the time. Pt is still under investigation for COVID-19 infection, not a candidate for nutrition education at the time. F/U to assess feasibility for Nutrition education. Percent of energy/protein needs met: Prescribed Cardiac/Consistent Carbohydrates Diet provides for energy/protein needs (1, 977 Kcal/86 g) during LOS. Burn Absent Trauma Absent GI Symptoms None Food Allergy No Skin Integrity/Comment Clear, warm, dry. Minimum of two criteria No Is patient on ventilator? No Is Patient Ambulatory and/or Out of Bed Yes REE-([place]-St. Jeor-ambulatory/OOB) [ 9236.069 [id number]] Kcal/Kg value to use for calculation 16 Approximate Energy Requirements Using 1110 kcal/Kg Calculation Used for Recommendations Kcal/kg Additional Notes Protein: 1-1.2 g/Kg; 69-83 g/ day. Fluids: 1 ml/Kcal, or as per MD. Nutrition Intervention Change Diet Order: Continue Cardiac/Consistent Carbohydrates Diet Follow-Up By: 05/17/21 Additional Comments Continue monitoring food tolerance, %PO intake of meals , and BM.
[2021-05-11] MEDS: CITALOPRAM 10 MG TAB PO SCH (17:15)
[2021-05-12] MEDS: HEPARIN 5,000 UNIT/1 ML VIAL SUB-Q SCH (06:23)
[2021-05-12] MEDS: INSULIN LISPRO 100 UNIT/ML SUB-Q SCH ×2 (07:30→11:30)
[2021-05-12] MEDS ORDERED: LOSARTAN 25 MG TAB PO SCH (08:00)
[2021-05-12] MEDS: MECLIZINE 12.5 MG TAB PO PRN (09:16)
[2021-05-12] MEDS: hydroCHLOROthiazide 25 MG TAB PO SCH (09:16)
[2021-05-12] MEDS: ASPIRIN 81 MG TAB CHEW PO SCH (09:16)
[2021-05-12] MEDS: metFORMIN 500 MG TAB PO SCH (09:17)
[2021-05-12 09:18] VITALS: BP 170/85
[2021-05-12] MEDS: ACETAMINOPHEN 325 MG TAB PO PRN (09:30)
[2021-05-12] MEDS ORDERED: NIFEdipine XL 30 MG TAB PO SCH (10:00)
[2021-05-12] MEDS: CITALOPRAM 10 MG TAB PO SCH (10:38)
--- NOTE | 2021-05-12 12:44 | Discharge Summary ---
Providers - Providers Date of Admission: 05/09/21 11:00 Date of discharge: 05/12/21 Attending physician: LAUREN PETERSON MD 05/07/21 21:50 Consult to Dietitian/Nutrition [CONS] Routine Physician Instructions: Reason For Exam: Reason for Consult: Diet education 05/08/21 06:27 Consult to Physician [CONS] Routine Comment: Consulting Provider: MARCOS GRIFFIN Physician Instructions: Reason For Exam: Left sided weakness 05/09/21 13:18 Occupational Therapy Evaluate and Treat [CONS] Routine Comment: Reason For Exam: stroke Physical Therapy Evaluation and Treat [CONS] Routine Comment: Reason For Exam: stroke Primary care physician: 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 Procedures: None. Hospital course: The patient is a 76-year-old female past medical history of hypertension who presented with generalized weakness, unsteady gait, and right-sided facial droop that was found to be secondary to acute infarction in the right putamen and right mathews radiata (as seen on MRI brain with and without). CT head noncontrast was significant for 2 deep infarctions in the right ganglia in the capsular distribution that are suggestive of chronic ischemia. Neurology was consulted for additional recommendations. The patient was newly diagnosed with type 2 diabetes mellitus with an A1c of 8.8, and she was initiated on metformin 500 mg twice daily. The patient was started on aspirin 325 mg daily, atorvastatin 80 mg daily, and underwent blood pressure control. Patient was evaluated by physical therapy and Occupational Therapy that recommended subacute rehab. The patient has been accepted to [facility]. The patient is medically cleared for discharge. Disposition: [facility] Final Discharge Diagnosis (Prints w/discharge instructions): Dehydration, nausea, acute metabolic encephalopathy, [id number] type 2 diabetes mellitus (newly diagnosed), acute cerebral infarction, hypertension. Time spent for discharge: 45 min Core Measure Documentation - Palliative Care Palliative Care/ Comfort Measures: Not Applicable - Core Measures Any of the following diagnoses?: none - Stroke Discharge Requirements Statin for LDL = or >70 mg/dl on DC: Yes Anticoag for atrial fib/atrial flutter: Not Applicable Antithrombotic for ischemic stroke: No Reason for no antithrombotic on DC: Not Indicated Exam - Constitutional Vitals: Temp Pulse Resp BP Pulse Ox 98.6 F 65 16 170/85 96 05/12/21 05:22 05/12/21 05:22 05/12/21 05:22 05/12/21 09:17 05/12/21 10:00 General appearance: Present: no acute distress, well-nourished - EENT Eyes: Present: PERRL, EOM intact ENT: hearing intact, clear oral mucosa, dentition normal - Neck Neck: Present: supple, normal ROM - Respiratory Respiratory effort: normal Respiratory: bilateral: CTA - Cardiovascular Rhythm: regular Heart Sounds: Present: S1 & S2 - Extremities Extremities: no ischemia, pulses intact, pulses symmetrical, No edema, normal temperature, normal color Peripheral Pulses: within normal limits - Abdominal General gastrointestinal: Present: soft, non-tender, non-distended, normal bowel sounds Female genitourinary: Present: deferred - Rectal Rectal Exam: deferred - Integumentary Integumentary: Present: clear, warm, dry - Musculoskeletal Musculoskeletal: left sided weakness - Psychiatric Psychiatric: appropriate mood/affect, intact judgment & insight, memory intact, cooperative - Neurologic Neurologic: CNII-XII intact, moves all extremities - Allied Health Allied health notes reviewed: nursing Plan Activity: no restrictions Diet: low salt Additional Instructions: The patient is a 76-year-old female past medical history of hypertension who presented with generalized weakness, unsteady gait, and right-sided facial droop that was found to be secondary to acute infarction in the right putamen and right mathews radiata (as seen on MRI brain with and without). CT head noncontrast was significant for 2 deep infarctions in the right ganglia in the capsular distribution that are suggestive of chronic ischemia. Neurology was consulted for additional recommendations. The patient was newly diagnosed with type 2 diabetes mellitus with an A1c of 8.8, and she was initiated on metformin 500 mg twice daily. The patient was started on aspirin 325 mg daily, atorvastatin 80 mg daily, and underwent blood pressure control. Patient was evaluated by physical therapy and Occupational Therapy that recommended subacute rehab. The patient has been accepted to [facility]. The patient is medically cleared for discharge. Care Plan Goals: Patient is medically cleared for discharge. Assessment: The patient is a 76-year-old female past medical history of hypertension who presented with generalized weakness, unsteady gait, and right-sided facial droop that was found to be secondary to acute infarction in the right putamen and right mathews radiata (as seen on MRI brain with and without). CT head noncontrast was significant for 2 deep infarctions in the right ganglia in the capsular distribution that are suggestive of chronic ischemia. Neurology was consulted for additional recommendations. The patient was newly diagnosed with type 2 diabetes mellitus with an A1c of 8.8, and she was initiated on metformin 500 mg twice daily. The patient was started on aspirin 325 mg daily, atorvastatin 80 mg daily, and underwent blood pressure control. Patient was evaluated by physical therapy and Occupational Therapy that recommended subacute rehab. The patient has been accepted to [facility]. The patient is medically cleared for discharge. Follow up with: PRIMARY CARE, [Primary Care Provider] - 7 Days Prescriptions: AtorvaSTATin [Lipitor] 80 mg PO QHS #30 tablet Aspirin [Aspirin BABY CHEW TAB] 81 mg PO QDAY #30 tab.chew Citalopram [celeXA] 10 mg PO QDAY #30 tablet Losartan [Cozaar] 50 mg PO QDAY #30 tablet metFORMIN [Glucophage] 500 mg PO BIDDIAB #60 tablet hydroCHLOROthiazide [HCTZ] 25 mg PO QDAY #30 tablet NIFEdipine XL [Procardia Xl] 30 mg PO QDAY #30 tablet
== END 2021-05-12 14:00 | DRG 64 ==
LOC: ED 18:10 → 3A 21:50 → OBSVTOIN 05-09 11:00
PROVIDERS: ADMIT Internal Medicine Geriatric Medicine; ATTEND Student in an Organized Health Care Education/Training Program
DX: I63.9 Cerebral infarction, unspecified (principal); G93.41 Metabolic encephalopathy; E86.0 Dehydration; I16.0 Hypertensive urgency; Z20.822 Contact with and (suspected) exposure to COVID-19; I10 Essential (primary) hypertension; E11.65 Type 2 diabetes mellitus with hyperglycemia; Z88.8 Allergy status to other drugs, medicaments and biological substances
CPT/HCPCS: 36415; 70450; 70551; 71045; 71275; 80048; 80061; 80076; 80307; 80320; 81001; 82140; 82550; 82553; 82728; 82947; 82962; 83036; 83615; 83735; 84145; 84484; 85025; 85379; 85610; 85670; 85730; 86140; 87040; 93005; 93306; 93880; 93970; 94760; G0378; Q0162; Q9967; G0480; J0360; J0456; J0696; J1644; J1815; J2270; J7030; U0003

== ENCOUNTER 2021-05-11 17:50 | Inpatient (IN) | payer MEDICARE, OTHER ==
[2021-05-12] MEDS ORDERED: DEXTROSE 50% IN WATER (25GM) 50 ML SYRINGE IV PRN (07:25)
[2021-05-12] MEDS ORDERED: ACETAMINOPHEN 325 MG TAB PO PRN (07:25)
[2021-05-12] MEDS ORDERED: ONDANSETRON 4 MG ODT TAB PO PRN (07:32)
[2021-05-12] MEDS ORDERED: POLYETHYLENE GLYCOL 3350 17 GM POWDER PO PRN (07:32)
[2021-05-12] MEDS ORDERED: MECLIZINE 12.5 MG TAB PO PRN (07:34)
[2021-05-12] MEDS ORDERED: LOSARTAN 25 MG TAB PO SCH (10:00)
[2021-05-12] MEDS ORDERED: hydroCHLOROthiazide 25 MG TAB PO SCH (10:00)
--- NOTE | 2021-05-12 16:02 | History and Physical Report ---
History of Present Illness Date: 05/12/21 Date of admission: 05/12/21 14:42 Chief Complaint: CVA History of present illness: 76-year-old female with a history of hypertension and prior stroke brought in for evaluation of generalized weakness, left-sided facial droop and unstable gait. Patient had severe headaches over the last several days prior to admission. She was seen by neurology and worked up for possible CVA. CT head showed 2 small deep infarcts in the right ganglia that appear to be chronic with no other acute intracranial abnormalities. MRI brain showed an acute infarct in the right putamen and right mathews radiata. Chest x-ray showed probable right lower lobe pneumonia but follow-up CTA showed a mild dependent atelectasis. Doppler study of the carotids showed less than 50% stenosis bilaterally. Echocardiogram showed 55 to 60% ejection fraction accompanied by mild regurgitation in all valves. Blood pressure tended to fluctuate during her stay and as of late has been elevated greater than 160-170 systolic, have already adjusted antihypertensives to address this. Patient is COVID-19 negative as of test date on 05/08/2021. Hemoglobin A1c was 8.8%. Cholesterol panel was elevated across the board with triglycerides at 157, cholesterol 237, LDL 166. After the patient was medically stabilized they were transferred for further rehabilitation. All available medical records have been reviewed. Plan of care was discussed with patient. Past History Past Medical History: hypertension, stroke Past Surgical History: No surgical history Social history: , lives with family Family history: no significant family history Medications and Allergies Allergies Allergy/AdvReac Type Severity Reaction Status Date / Time hydralazine AdvReac Intermediate Difficulty Verified 05/09/21 00:28 Breathing, chest heaviness Home Medications Medication Instructions Recorded Confirmed Last Taken Type Multivit-Min36/Iron/Folic Acid 1 each PO QDAY 05/11/21 05/11/21 05/07/21 History [Geritol Complete Tablet] Aspirin [Aspirin BABY CHEW TAB] 81 mg PO QDAY #30 tab.chew 05/12/21 Unknown Rx AtorvaSTATin [Lipitor] 80 mg PO QHS #30 tablet 05/12/21 Unknown Rx Citalopram [celeXA] 10 mg PO QDAY #30 tablet 05/12/21 Unknown Rx Losartan [Cozaar] 50 mg PO QDAY #30 tablet 05/12/21 Unknown Rx NIFEdipine XL [Procardia Xl] 30 mg PO QDAY #30 tablet 05/12/21 Unknown Rx hydroCHLOROthiazide [HCTZ] 25 mg PO QDAY #30 tablet 05/12/21 Unknown Rx metFORMIN [Glucophage] 500 mg PO BIDDIAB #60 tablet 05/12/21 Unknown Rx Active Meds: Active Medications Acetaminophen (Acetaminophen 325 Mg Tab) 650 mg PO Q6H PRN PRN Reason: Pain MILD(1-3)/Fever >100.5/CARROLL Hydrocodone Bitart/Acetaminophen (Hydrocodone/Acetaminophen 5-325 Mg Tab) 1 each PO Q6H PRN PRN Reason: Pain, Moderate (4-6) Aspirin (Aspirin Ec 81 Mg Tab) 81 mg PO QDAY YOUSIF Atorvastatin Calcium (Atorvastatin 40 Mg Tab) 80 mg PO QHS YOUSIF Bisacodyl (Bisacodyl 10 Mg Rect Supp) 10 mg GA QDAY PRN PRN Reason: Constipation Citalopram Hydrobromide (Citalopram 10 Mg Tab) 10 mg PO QDAY YOUSIF Dextrose (Dextrose 50% In Water (25gm) 50 Ml Syringe) 50 ml IV Q30MIN PRN; Protocol PRN Reason: Hypoglycemia Enoxaparin Sodium (Enoxaparin 40 Mg/0.4 Ml Inj) 40 mg SUB-Q QDAY YOUSIF Hydrochlorothiazide (Hydrochlorothiazide 25 Mg Tab) 25 mg PO QDAY YOUSIF Losartan Potassium (Losartan 25 Mg Tab) 50 mg PO QDAY YOUSIF Meclizine HCl (Meclizine 12.5 Mg Tab) 12.5 mg PO Q12H PRN PRN Reason: Vertigo Metformin HCl (Metformin 500 Mg Tab) 500 mg PO BIDDIAB YOUSIF Ondansetron HCl (Ondansetron 4 Mg Odt Tab) 4 mg PO Q8H PRN PRN Reason: Nausea And Vomiting Polyethylene Glycol (Polyethylene Glycol 3350 17 Gm Powder) 17 gm PO QDAY PRN PRN Reason: Constipation Review of Systems All systems: negative (ROS negative for 10 systems except as noted below with pertinent positives and negatives.) Constitutional: no fever, no chills Ears, nose, mouth and throat: vertigo, no decreased hearing Cardiovascular: no chest pain, no palpitations, no edema Respiratory: no cough, no shortness of breath Gastrointestinal: no nausea, no vomiting, no diarrhea Musculoskeletal: arm numbness/tingling, low back pain, leg numbness/tingling Integumentary: no rash, no sores Neurological: paralysis, parathesias, lack of coordination, confusion, gait dysfunction Psychiatric: confusion, irritability Exam - Exam Narrative exam: MUSCULOSKELETAL SPECIALTY EXAM CONSTITUTIONAL: Well developed, well nourished, appropriately groomed. RIGHT hand dominant. LYMPHATIC: No appreciable abnormalities palpable in neck RESPIRATORY: Clear to auscultation bilaterally, no increased work of breathing CARDIOVASCULAR: Regular Rate/ Rhythm, no swelling, edema or tenderness in BUE or BLE. Pulses palpable in all extremities. All extremities warm. GI: + bowel sounds, soft, NTTP, nondistended. INTEGUMENTARY: Normal, no lesion, rash, masses or bruising noted in extremities. MUSCULOSKELETAL: BUE and BLE normal without defect, crepitus, subluxation, effusion, arthritic changes or TTP. Slight discomfort to palpation on left flank R 4+/5 L 4- /5 ROM decreased on the left Tone within normal limits, slightly hypotonic on left NEURO: CN II : Visual perales full to confrontation CN II, III : PERRL CN III, IV, : EOMI CN V : Facial sensation intact but slightly impaired on CN VII : Left facial droop CN VIII : Hearing intact to finger rustle CN IX, X : Palate/uvula elevate midline, phonation normal CN XI : Intact shoulder shrug and head rotation CN XII : Tongue protrudes midline Sensation intact in all extremities without extinction with slight paresthesias on the left. Reflexes 2+ bilaterally at biceps, brachioradialis and patella. No clonus at ankles. Coordination intact in RUE. Slightly impaired on left. No tremor noted in 4 extremities. Naming and repetition intact. Follows 1 step commands. Aphasia not appreciated Dysarthria possibly present, will continue to monitor and address if this becomes apparent Dysphagia not appreciated, speech therapy has been ordered to officially rule out Neglect not appreciated currently POSTURE and GAIT: Sitting posture good. Balance and gait deferred until seen with therapy. PSYCH: Alert, oriented 1, affect appears euthymic. Insight appears intact, possibly slightly impaired. We will need to monitor the patient over the next several days to discern whether or not she does have an issue with dementia or if this is possibly encephalopathy. We will attempt to avoid make a diagnosis of dementia until patient has recovered at home and can follow-up with neurology. Assessment and Plan Assessment and plan: Patient was assessed and evaluated for Acute Inpatient Rehab Unit. Due to the patients above-mentioned medical complexity, along with decreased functional mobility and self care, this patient continues to require and be appropriate for a comprehensive, multidisciplinary [id number] rehabilitation program. These needs cannot be met in an outpatient or other less intensive setting. The patient would continue to benefit from skilled therapy intervention for at least 3 hours per day, five days a week, with techniques specific to the needs of the patient to improve function, activities of daily living, and reintegration into the community. The patient continues to require: -- OT to improve ROM, self-care, and learn use of adaptive equipment -- PT to improve strength and balance, functional transfers, and ambulation with energy conservation techniques to improve functional mobility -- SUPERVISOR PAINT to address cognitive deficits and swallowing ability -- 24 hour RN to ensure and prevent skin breakdown, promote progressive independence while ensuring safety, ensure education regarding medications, and incorporation of the rehabilitation at the bedside -- 24 hour Help Desk Analyst to coordinate this interdisciplinary program, and to manage/prevent complications as a result of the patients medical comorbidities. -Plan of care by day 4 -Weekly team conferences With such a program, there is a reasonable certainty that the goals individualized for this patient can be achieved within the specified length of stay. CVA: Continue Secondary Stroke Prevention (Antithrombotic, Statin (Goal LDL-C <70), BP control (Goal <140/90), GLU control (Goal A1c <7), and lifestyle modification). Monitor for recurrent stroke or post-stroke recrudescence. Continue neuromotor therapy as above. Family training when available. Monitor for post stroke depression, cognitive deficits, seizure, dysphagia, aphasia, shoulder hand syndrome, sensory deficits, spasticity, bowel/bladder deficits, sleep disturbance, vision deficits and DVT. Prognosis for recovery and Secondary Stroke Prevention discussed. Follow up with Neurology. No driving until cleared by Neurologist. Diabetes: Continue carb controlled diet, sliding scale insulin and metformin. Monitor glucose levels and adjust medications as needed for euglycemia. Diabetes training per nutrition. Hemoglobin A1c 8.8. Left Facial droop: Continue work with patient to improve, consider e-stim if needed or if there is affecting eating/speech Dizziness: Continue meclizine as needed, monitor for falls, discussed use of call light and do not get out of bed with patient Hypertension: Continue medication. Monitor blood pressure. Adjust medications as needed for normotension. Hold for hypotension. Goal SBP <140. Blood pressure has been elevated over the past couple of days, have increased medication and will monitor for further need to adjust. We will also need to monitor for orthostatic hypotension and possible overcompensation by the adjustment of medication. ADL dysfunction: OT will work on improving ability to perform ADLs (including assistive devices) to increase independence and decrease caregiver burden and im prove functional transfers and mobility training. Difficulty walking: PT will work on gait training and proper use of assistive devices and advance as appropriate to use of stairs and outside ambulation on uneven surfaces. Unsteadiness on feet: PT will work on improving static and dynamic sitting and standing balance as well as proper use of assistive devices to decrease risk of falls. Abnormality of gait: PT will work to improve safety and efficiency of gait through neuromotor training and gait training along with instruction on proper use of assistive devices. Muscle weakness: PT & OT will work on strengthening exercises to improve functional strength including mixture of closed and open kinetic chain exercises. Debility: PT & OT will work on improving overall functional status to improve participation with ADLs, mobility and social involvement. Fatigue: PT & OT will work on improving endurance through aerobic exercises and therapeutic activity while monitoring patients tolerance for activity and vital signs as needed. DVT ppx: Lovenox Pain: Continue physical modalities in therapy and pain medications as needed to achieve functional pain control. Sleep: Monitor and address as needed. Bowel: Monitor and address as needed. Appetite: Monitor and address as needed. Discharge planning: Pending therapy progress and care plan meeting. Will continue discussion with therapy team, SW, patient and family. Restrictions/ Precautions: Falls WB status: FWB Functional Hx: ADLs: Independent Cognition: Independent Mobility: No AD but did use 's assistance at times Barriers to Discharge: Decreased mobility and ability to perform self care, balance deficits, weakness Estimated Length of Stay: 1418 days Discharge Destination: Home with family Patient is a high risk for further injury due to fall, secondary CVA or recrudescence, and poor functional recovery due to CVA. POST ADMISSION PHYSICIAN EVALUATION I have examined the patient and find that functional status, medical condition and appropriateness for IRF admission are essentially unchanged from those described in the preadmission screening. Will monitor for worsening CVA, extension, recrudescence, shoulder-hand syndrome, post stroke depression, worsening cognition, dysphagia/dysphasia, DVT/PE, bowel and bladder complications and complications due to diabetes, hypertension, and electrolyte a bnormalities. Will attempt to avoid occurrence of these issues or treat them if they present themselves.
[2021-05-12] MEDS: LOSARTAN 25 MG TAB PO SCH (17:32)
[2021-05-12] MEDS: CITALOPRAM 10 MG TAB PO SCH (17:32)
[2021-05-12] MEDS: ASPIRIN EC 81 MG TAB PO SCH (17:33)
[2021-05-12] MEDS: metFORMIN 500 MG TAB PO SCH ×2 (17:34→17:55)
[2021-05-12] MEDS: ENOXAPARIN 40 MG/0.4 ML INJ SUB-Q SCH (17:55)
[2021-05-12] MEDS: HYDROcodone/ACETAMINOPHEN 5-325 MG TAB PO PRN (21:58)
[2021-05-13 05:10] LABS: Basophils # (Auto) 0.1 K/mm3 (0.0-0.1); Basophils % (Auto) 0.5 % (0.0-1.8); Eosinophils # (Auto) 0.3 K/mm3 (0.0-0.4); Eosinophils % (Auto) 2.5 % (0.0-4.3); Hematocrit 45.5 % (30.3-42.9); Hemoglobin 14.9 gm/dl (10.1-14.3); Lymphocytes % (Auto) 24.4 % (13.4-35.0); Mean Corpuscular HGB Conc 33 % (30-34); Mean Corpuscular Volume 92 fl (79-97); Monocytes # (Auto) 0.6 K/mm3 (0.0-0.8); Monocytes % (Auto) 5.1 % (0.0-7.3); Platelet Count 234 K/mm3 (140-440); Red Blood Count 4.94 M/mm3 (3.65-5.03); Red Cell Distribution Width 12.9 % (13.2-15.2)
[2021-05-13 05:19] LABS: Alanine Aminotransferase 25 units/L (7-56); Blood Urea Nitrogen 22 mg/dL (7-17); Calcium 9.5 mg/dL (8.4-10.2); Hemolysis Index 49
[2021-05-13 05:31] LABS: BUN/Creatinine Ratio 55
--- NOTE | 2021-05-13 07:14 | Progress Note ---
Subjective Date of service: 05/13/21 Principal diagnosis: CVA Interval history: 76-year-old female with a history of hypertension and prior stroke brought in for evaluation of generalized weakness, left-sided facial droop and unstable gait. Patient had severe headaches over the last several days prior to admission. She was seen by neurology and worked up for possible CVA. CT head showed 2 small deep infarcts in the right ganglia that appear to be chronic with no other acute intracranial abnormalities. MRI brain showed an acute infarct in the right putamen and right mathews radiata. Chest x-ray showed probable right lower lobe pneumonia but follow-up CTA showed a mild dependent atelectasis. Doppler study of the carotids showed less than 50% stenosis bilaterally. Echocardiogram showed 55 to 60% ejection fraction accompanied by mild regurgitation in all valves. Blood pressure tended to fluctuate during her stay and as of late has been elevated greater than 160-170 systolic, have already adjusted antihypertensives to address this. Patient is COVID-19 negative as of test date on 05/08/2021. Hemoglobin A1c was 8.8%. Cholesterol panel was elevated across the board with triglycerides at 157, cholesterol 237, LDL 166. After the patient was medically stabilized they were transferred for further rehabilitation. All available medical records have been reviewed. Plan of care was discussed with patient. Interval History: Patient is participating in therapy and making reasonable progress. Taking rest breaks as needed. +BM. Denies pain, palpitations, dyspnea, cough, N/V, or joint pain. Patient still endorses slight back pain and states that she just feels weak all over. Noted that the potassium remains low and she now has leukocytosis. Will complete a work-up for leukocytosis. Has not been febrile. Did test negative for COVID-19 previously but will keep that in the differential and look to retest her if she presents with any further symptoms. CVA: Continue secondary stroke prevention and therapy. Patient is not having any signs of worsening neurologic function, shoulder-hand syndrome, bowel or bladder dysfunction. 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 This is a new diagnosis and we are adjusting her initial treatment regimen Hypertension: Continue medications, increased her dose of losartan yesterday due to numerous elevations greater than 160 on the acute care side. This morning she appears to be in the 120s. May need to reduce her dose back to the previous level and continue to monitor. Leukocytosis: Work-up for UTI or pneumonia. Patient previously suspected to have pneumonia but turned out to be atelectasis. Hypokalemia: Replace and check magnesium. ADL and mobility deficits: Continue therapy as above in order to improve patient's ability to perform ADLs as independently as possible and to mobilize herself with out falls. Decreased safety awareness: Potentially due to CVA, encephalopathy, or early stages of dementia. We will continue to monitor and look for clearing and improvement. All records, vitals, labs and medications were reviewed. No other issues per patient, nursing or therapy. Objective - Exam Narrative Exam: MUSCULOSKELETAL SPECIALTY EXAM CONSTITUTIONAL: Well developed, well nourished, appropriately groomed. RIGHT hand dominant. RESPIRATORY: Clear to auscultation bilaterally, no increased work of breathing CARDIOVASCULAR: Regular Rate/ Rhythm, no swelling, edema or tenderness in BUE or BLE. All extremities warm. GI: + bowel sounds, soft, NTTP, nondistended. INTEGUMENTARY: Normal, no lesion, rash, masses or bruising noted in extremities. MUSCULOSKELETAL: BUE and BLE normal without defect, crepitus, subluxation, effusion, arthritic changes or TTP. Slight discomfort to palpation on left flank R 4+/5 L 4- /5 ROM decreased on the left Tone within normal limits, slightly hypotonic on left NEURO: CN V : Facial sensation intact but slightly impaired on left CN VII : Left facial droop Sensation intact in all extremities without extinction with slight paresthesias on the left. No tremor noted in 4 extremities. Naming and repetition intact. Follows 1 step commands. Aphasia not appreciated Dysarthria possibly present, will continue to monitor and address if this becomes apparent Dysphagia not appreciated, speech therapy has been ordered to officially rule out Neglect not appreciated currently POSTURE and GAIT: Sitting posture good. Balance and gait deferred until seen with therapy. PSYCH: Alert, oriented x1, affect appears euthymic to slightly flattened. Insight appears intact, possibly slightly impaired. We will need to monitor the patient over the next several days to discern whether or not she does have an issue with dementia or if this is possibly encephalopathy. We will attempt to avoid make a diagnosis of dementia until patient has recovered at home and can follow-up with neurology. - Constitutional Vitals: Vital Signs - 12hr 05/12/21 05/12/21 05/12/21 21:48 21:58 22:58 Temperature 98.4 F Pulse Rate 95 H Respiratory 20 20 20 Rate Blood Pressure 129/72 O2 Sat by Pulse 93 Oximetry 05/13/21 02:47 Temperature Pulse Rate Respiratory 20 Rate Blood Pressure O2 Sat by Pulse 99 Oximetry - Allied health notes Allied health notes reviewed: nursing, PT, OT - Labs CBC & Chem 7: 05/13/21 04:07 05/13/21 04:07 Labs: Laboratory Results - last 72 hr 05/12/21 05/13/21 05/13/21 21:50 04:07 04:07 WBC 12.4 H RBC 4.94 Hgb 14.9 H Hct 45.5 H MCV 92 MCH 30 MCHC 33 RDW 12.9 L Plt Count 234 Lymph % (Auto) 24.4 [place] % (Auto) 5.1 Eos % (Auto) 2.5 Baso % (Auto) 0.5 Lymph # (Auto) 3.0 [place] # (Auto) 0.6 Eos # (Auto) 0.3 Baso # (Auto) 0.1 Seg Neutrophils % 67.5 Seg Neutrophils # 8.4 H Sodium 137 Potassium 3.4 L Chloride 98.5 Carbon Dioxide 25 Anion Gap 17 BUN 22 H Creatinine 0.4 L Estimated GFR > 60 BUN/Creatinine Ratio 55 Glucose 163 H POC Glucose 212 H Calcium 9.5 Total Bilirubin 0.90 AST 29 ALT 25 Alkaline Phosphatase 71 Total Protein 6.9 Albumin 4.0 Albumin/Globulin Ratio 1.4 Assessment and Plan CVA: Continue Secondary Stroke Prevention (Antithrombotic, Statin (Goal LDL-C <70), BP control (Goal <140/90), GLU control (Goal A1c <7), and lifestyle modification). Monitor for recurrent stroke or post-stroke recrudescence. Continue neuromotor therapy as above. Family training when available. Monitor for post stroke depression, cognitive deficits, seizure, dysphagia, aphasia, shoulder hand syndrome, sensory deficits, spasticity, bowel/bladder deficits, sleep disturbance, vision deficits and DVT. Prognosis for recovery and Secondary Stroke Prevention discussed. Follow up with Neurology. No driving until cleared by Neurologist. Diabetes: Continue carb controlled diet, sliding scale insulin and metformin. Monitor glucose levels and adjust medications as needed for euglycemia. Diabetes training per nutrition. Hemoglobin A1c 8.8. Hypokalemia: Replace and check magnesium. Leukocytosis without fever: Check UA and chest x-ray. Prior chest x-ray showed atelectasis but it was determined patient did not have pneumonia. Patient has had a Sharp prior to admission to IRU. This was removed yesterday upon admission examination. Further treatment with antibiotics as indicated after work-up. Left Facial droop: Continue work with patient to improve, consider e-stim if needed or if there is affecting eating/speech Dizziness: Continue meclizine as needed, monitor for falls, discussed use of call light and do not get out of bed with patient Hypertension: Continue medication. Monitor blood pressure. Adjust medications as needed for normotension. Hold for hypotension. Goal SBP <140. Blood p ressure has been elevated over the past couple of days, have increased medication and will monitor for further need to adjust. We will also need to monitor for orthostatic hypotension and possible overcompensation by the adjustment of medication. ADL dysfunction: OT will work on improving ability to perform ADLs (including assistive devices) to increase independence and decrease caregiver burden and improve functional transfers and mobility training. Difficulty walking: PT will work on gait training and proper use of assistive devices and advance as appropriate to use of stairs and outside ambulation on uneven surfaces. Unsteadiness on feet: PT will work on improving static and dynamic sitting and standing balance as well as proper use of assistive devices to decrease risk of falls. Abnormality of gait: PT will work to improve safety and efficiency of gait through neuromotor training and gait training along with instruction on proper use of assistive devices. Muscle weakness: PT & OT will work on strengthening exercises to improve functional strength including mixture of closed and open kinetic chain exercises. Debility: PT & OT will work on improving overall functional status to improve participation with ADLs, mobility and social involvement. Fatigue: PT & OT will work on improving endurance through aerobic exercises and therapeutic activity while monitoring patients tolerance for activity and vital signs as needed. DVT ppx: Lovenox Pain: Continue physical modalities in therapy and pain medications as needed to achieve functional pain control. Sleep: Monitor and address as needed. Bowel: Monitor and address as needed. Appetite: Monitor and address as needed. Discharge planning: Pending therapy progress and care plan meeting. Will continue discussion with therapy team, SW, patient and family. Restrictions/ Precautions: Falls WB status: FWB Functional Hx: ADLs: Independent Cognition: Independent Mobility: No AD but did use 's assistance at times Barriers to Discharge: Decreased mobility and ability to perform self care, balance deficits, weakness Estimated Length of Stay: 1418 days Discharge Destination: Home with family Patient is a high risk for further injury due to fall, secondary CVA or recrudescence, and poor functional recovery due to CVA.
[2021-05-13] MEDS ORDERED: hydroCHLOROthiazide 25 MG TAB PO SCH (07:30)
[2021-05-13] MEDS ORDERED: SODIUM CHLORIDE 0.9% 1000 ML 1,000 ML IV SCH (07:30)
--- NOTE | 2021-05-13 09:03 | XRay Report ---
CHEST 2 VIEWS INDICATION / CLINICAL INFORMATION: Leukocytosis, follow up of prior atelectasis v PNA. COMPARISON: May 07, 2021 FINDINGS: SUPPORT DEVICES: None. HEART / MEDIASTINUM: No significant abnormality. LUNGS / PLEURA: Right hilar lower lobe opacity persists No pneumothorax. ADDITIONAL FINDINGS: No significant additional findings. IMPRESSION: 1. Right lower lobe and perihilar opacity/infiltrate Signer Name: Devante Chavez MD Signed: 05/13/2021 8:58 AM Workstation Name: [id number] [email or web address]
--- NOTE | 2021-05-13 09:06 | XRay Report ---
LEFT RIBS 4 VIEWS INDICATION: Pain L paraspinal over posterior rib. COMPARISON: None. IMPRESSION: No left rib deformity or bone lesion is detected on x-ray. The left lung is well-aerate d. The aorta is mildly ectatic with calcifications. Signer Name: Americo Frederick Jr, MD Signed: 05/13/2021 9:02 AM Workstation Name: [id number]
[2021-05-13] MEDS: LOSARTAN 25 MG TAB PO SCH (09:23)
[2021-05-13] MEDS: hydroCHLOROthiazide 12.5 MG CAP PO SCH (09:23)
[2021-05-13] MEDS: CITALOPRAM 10 MG TAB PO SCH (09:23)
[2021-05-13] MEDS: ENOXAPARIN 40 MG/0.4 ML INJ SUB-Q SCH (09:23)
[2021-05-13] MEDS: metFORMIN 500 MG TAB PO SCH ×2 (09:23→17:32)
[2021-05-13] MEDS: ASPIRIN EC 81 MG TAB PO SCH (09:23)
[2021-05-13] MEDS: POTASSIUM CHLORIDE ER 20 MEQ TAB PO SCH (09:23)
[2021-05-13] MEDS: cefTRIAXone/NS 1 GM/50 ML 1 GM/50 ML BAG IV SCH (22:39)
[2021-05-14] MEDS: HYDROcodone/ACETAMINOPHEN 5-325 MG TAB PO PRN ×3 (02:39→21:06)
[2021-05-14 10:37] LABS: Hemoglobin 15.2 gm/dl (10.1-14.3); Mean Corpuscular HGB Conc 33 % (30-34); Mean Corpuscular Volume 92 fl (79-97); Platelet Count 247 K/mm3 (140-440); Red Blood Count 4.99 M/mm3 (3.65-5.03); Red Cell Distribution Width 12.7 % (13.2-15.2)
[2021-05-14] MEDS: metFORMIN 500 MG TAB PO SCH ×2 (10:42→17:27)
[2021-05-14] MEDS: ASPIRIN EC 81 MG TAB PO SCH (10:42)
[2021-05-14] MEDS: POTASSIUM CHLORIDE ER 20 MEQ TAB PO SCH (10:42)
[2021-05-14] MEDS: ENOXAPARIN 40 MG/0.4 ML INJ SUB-Q SCH (10:42)
[2021-05-14] MEDS: LOSARTAN 25 MG TAB PO SCH (10:42)
[2021-05-14] MEDS: hydroCHLOROthiazide 12.5 MG CAP PO SCH (10:42)
[2021-05-14] MEDS: CITALOPRAM 10 MG TAB PO SCH (10:44)
[2021-05-14 10:59] LABS: Blood Urea Nitrogen 29 mg/dL (7-17); Calcium 9.4 mg/dL (8.4-10.2); Hemolysis Index 9
[2021-05-14 11:10] LABS: BUN/Creatinine Ratio 48
[2021-05-14] MEDS ORDERED: SODIUM CHLORIDE 0.9% 1000 ML 1,000 ML IV SCH (12:15)
--- NOTE | 2021-05-14 12:22 | IRU Plan of Care ---
Interdisciplinary Plan of Care - IPOC IRU INTERDISCIPLINARY PLAN: [facility] Inpatient Rehab Unit Plan of Care IRU Interdisciplinary Care Plan Start: 05/12/21 09:49 Freq: Status: Active Protocol: Document 05/13/21 16:36 CL (Rec: 05/13/21 17:13 CL [id number]) Interdisciplinary Problem List Interdisciplinary Problem List Interdisciplinary Problem List Impaired Eating/Swallowing, Query Text:Answers will Trigger Problems Impaired Comprehension, and Outcomes on Worklist. Impaired Problem Solving, Impaired Memory,Impaired Safety Interdisciplinary Problem List Impaired Eating/Swallowing, Query Text:Answers will Trigger Problems Impaired Comprehension, and Outcomes on Worklist. Impaired Problem Solving, Impaired Memory,Impaired Safety IRU Interdisciplinary Care Plan Therapy Services Therapy Services Will Include: Speech Therapy Query Text:Patient will be seen for a minimum of 3 hours of daily therapy 5 out of 7 days a week. Therapy intensity may be adjusted within a 7 consecutive day period to effectively serve the individual needs of the patient. Treatment Frequency/Intensity/Duration Treatment Frequency 5x weekly Treatment Intensity 60 Treatment Duration 7-14 days Problem Area: Eating/Swallowing Eating/Swallowing Outcomes Improve Lingual ROM/Strength Eating/Swallowing Outcomes Improve Lingual ROM/Strength Problem Area: Bathing/Grooming Bathing/Grooming Outcomes Bathing/Grooming Interventions Problem Area: Dressing Dressing Outcomes Dressing Interventions Problem Area: Mobility Mobility Outcomes Mobility Interventions Problem Area: Transfers Transfers Outcomes Transfers Interventions Problem Area: Bowel/Bladder Managment Bowel/Bladder Outcomes Bowel/Bladder Interventions Problem Area: Toileting Toileting Outcomes Toileting Interventions Problem Area: Nutrition Nutrition Outcomes Nutrition Interventions Problem Area: Comprehension Comprehension Interventions Receptive Language Tasks, Patient/Caregiver Education Problem Area: Expression Expression Outcomes Expression Interventions Problem Area: Problem Solving Problem Solving Outcomes Improve Problem Solving Problem Solving Interventions Cognitive Training Problem Area: Memory Memory Outcomes Memory Interventions Problem Area: Pain Management Pain Management Outcomes Pain Management Interventions Problem Area: Knowledge Deficits Knowledge Deficits Outcomes Knowledge Deficits Interventions Problem Area: Skin/Tissue Integrity Skin/Tissue Integrity Outcomes Skin/Tissue Integrity Interventions Problem Area: Social Interaction Social Interaction Outcomes Social Interaction Interventions Problem Area: Adjustment to Disability Adjustment to Disability Outcomes Adjustment to Disability Interventions Problem Area: Discharge Concerns Discharge Concerns Outcomes Discharge Concerns Interventions Problem Area: Community Reintegration Community Reintegration Outcomes Community Reintegration Interventions Problem Area: Home Management Home Management Outcomes Home Management Interventions Problem Area: Safety Safety Outcomes Safety Interventions Problem Area: Medication Education Medication Education Outcomes Medication Education Interventions Problem Area: Diabetes Education Diabetes Education Outcomes Diabetes Education Interventions Problem Area: Oxygenation Oxygenation Outcomes Oxygenation Interventions Problem Area: Cardiovascular Cardiovascular Outcomes Cardiovascular Interventions Physician Only Medical Prognosis and Rehabilitation Potential (Completed by Physician) This plan of care has been developed based on the findings from the pre- admission assessment, post admission physician evaluation, information gathered from the assessments from all therapy disciplines and other pertinent clinicians. The plan of care has been reviewed and discussed in collaboration with the interdisciplinary team. The plan of care will be reviewed and updated at least weekly.
--- NOTE | 2021-05-14 22:36 | IRU Plan of Care ---
Interdisciplinary Plan of Care - IPOC IRU INTERDISCIPLINARY PLAN: [facility] Inpatient Rehab Unit Plan of Care IRU Interdisciplinary Care Plan Start: 05/12/21 09:49 Freq: Status: Active Protocol: Document 05/14/21 20:46 TH (Rec: 05/14/21 21:04 TH [id number]) IRU Interdisciplinary Care Plan Therapy Services Therapy Services Will Include: Physical Therapy,Occupational Query Text:Patient will be seen for a Therapy,Speech Therapy minimum of 3 hours of daily therapy 5 out of 7 days a week. Therapy intensity may be adjusted within a 7 consecutive day period to effectively serve the individual needs of the patient. Treatment Frequency/Intensity/Duration Treatment Frequency 5X/WEEK Treatment Intensity 3 HOURS/DAY Treatment Duration 7-10 DAYS Problem Area: Eating/Swallowing Eating/Swallowing Outcomes Improve Lingual ROM/Strength Eating/Swallowing Outcomes Improve Lingual ROM/Strength Eating/Swallowing Outcomes Improve Lingual ROM/Strength Problem Area: Bathing/Grooming Bathing/Grooming Outcomes Improve [place] w/ Grooming,Improve [place] w/ Bathing Bathing/Grooming Interventions ADL Training,Use of Assistive Devices,Therapeutic Exercise, Therapeutic Activity, Neuromuscular Re-Education, Balance Work,Activity Tolerance Work,Patient/ Caregiver Education Problem Area: Mobility Mobility Outcomes Improve [place] w/ Bed Mobility,Improve [place] w/ Ambulation,Improve [place] w/ Stairs/Curb, Improve [place] w/ Wheelchair Mobility Interventions Therapeutic Exercise, Neuromuscular Re-Ed.,Activity Tolerance Work,Use of Assistive Devices,Patient/ Caregiver Education,Bed Mobility Work,Gait Training, Household Mobility Work,W/C Mobility Work Problem Area: Transfers Transfers Outcomes Improve [place] w/ Bed Transfers,Improve [place] w/ Car Transfers Transfers Interventions Transfer Training,Therapeutic Exercise,Neuromuscular Re- Education,Visual/Perceptual Training,Activity Tolerance Work,Use of Assistive Devices, Patient/Caregiver Education Problem Area: Bowel/Bladder Managment Bowel/Bladder Outcomes Bowel/Bladder Interventions Problem Area: Toileting Toileting Outcomes Improve [place] w/ Toileting Toileting Interventions ADL Training,Balance Work,Use of Assistive Devices,Patient/ Caregiver Education Problem Area: Nutrition Nutrition Outcomes Nutrition Interventions Problem Area: Comprehension Comprehension Outcomes Improve Comprehension Comprehension Interventions Receptive Language Tasks, Patient/Caregiver Education Problem Area: Expression Expression Outcomes Expression Interventions Problem Area: Problem Solving Problem Solving Outcomes Improve Problem Solving Problem Solving Interventions Cognitive Training,Safety Education,Patient/Caregiver Education Problem Area: Memory Memory Outcomes Memory Interventions Problem Area: Pain Management Pain Management Outcomes Pain Management Interventions Problem Area: Knowledge Deficits Knowledge Deficits Outcomes Verbalize Understanding of S/S of Stroke Knowledge Deficits Interventions Disease/Injury/Sx. Intervention Education,Safety Education Problem Area: Skin/Tissue Integrity Skin/Tissue Integrity Outcomes Skin/Tissue Integrity Interventions Problem Area: Social Interaction Social Interaction Outcomes Social Interaction Interventions Problem Area: Adjustment to Disability Adjustment to Disability Outcomes Adjustment to Disability Interventions Problem Area: Discharge Concerns Discharge Concerns Outcomes Discharge w/ Necessary Equipment,Have Home Health/ Outpatient Services Discharge Concerns Interventions Discharge Planning,Equipment Assessment, Acquisition and Placement,Family/Caregiver Conference,Family/Caregiver Training Problem Area: Community Reintegration Community Reintegration Outcomes Community Reintegration Interventions Problem Area: Home Management Home Management Outcomes Home Management Interventions Problem Area: Safety Safety Outcomes Provide Safe Environment, Demonstrate Good Safety w/ Transfers/Mobility Safety Interventions Identify Fall Risk,[place] to Environment,Reduce Environmental Hazards Problem Area: Medication Education Medication Education Outcomes Patient/Caregiver will Verbalize Understanding of Medications Medication Education Interventions Explain Administration/Side Effects/Interactions Problem Area: Diabetes Education Diabetes Education Outcomes Diabetes Education Interventions Problem Area: Oxygenation Oxygenation Outcomes Oxygenation Interventions Problem Area: Cardiovascular Cardiovascular Outcomes Maintain or Improve Cardiovascular Status Cardiovascular Interventions Assess Vital Signs at least Every 4 hours,Cardiac Monitoring, EKG and ABG as Ordered. Physician Only Medical Prognosis and Rehabilitation Good rehab potential, good medical prognosis Potential (Completed by Physician) Interdisciplinary Problem List Interdisciplinary Problem List Interdisciplinary Problem List Impaired Eating/Swallowing, Query Text:Answers will Trigger Problems Impaired Bathing/Grooming, and Outcomes on Worklist. Impaired Dressing,Impaired Mobility,Impaired Transfers, Impaired Toileting,Impaired Comprehension,Impaired Problem Solving,Impaired Memory, Discharge Concerns,Impaired Safety,Medications Education, Impaired Cardiovascular System Interdisciplinary Problem List Impaired Eating/Swallowing, Query Text:Answers will Trigger Problems Impaired Bathing/Grooming, and Outcomes on Worklist. Impaired Dressing,Impaired Mobility,Impaired Transfers, Impaired Toileting,Impaired Comprehension,Impaired Problem Solving,Impaired Memory, Discharge Concerns,Impaired Safety,Medications Education, Impaired Cardiovascular System This plan of care has been developed based on the findings from the pre- admission assessment, post admission physician evaluation, information gathered from the assessments from all therapy disciplines and other pertinent clinicians. The plan of care has been reviewed and discussed in collaboration with the interdisciplinary team. The plan of care will be reviewed and updated at least weekly.
[2021-05-14] MEDS: cefTRIAXone/NS 1 GM/50 ML 1 GM/50 ML BAG IV SCH (22:58)
[2021-05-15 09:19] LABS: Hematocrit 42.8 % (30.3-42.9); Hemoglobin 14.1 gm/dl (10.1-14.3); Mean Corpuscular HGB Conc 33 % (30-34); Mean Corpuscular Volume 92 fl (79-97); Platelet Count 243 K/mm3 (140-440); Red Blood Count 4.64 M/mm3 (3.65-5.03); Red Cell Distribution Width 12.6 % (13.2-15.2)
--- NOTE | 2021-05-15 09:26 | Progress Note ---
Subjective Date of service: 05/15/21 Principal diagnosis: CVA Interval history: 76-year-old female with a history of hypertension and prior stroke brought in for evaluation of generalized weakness, left-sided facial droop and unstable gait. Patient had severe headaches over the last several days prior to admission. She was seen by neurology and worked up for possible CVA. CT head showed 2 small deep infarcts in the right ganglia that appear to be chronic with no other acute intracranial abnormalities. MRI brain showed an acute infarct in the right putamen and right mathews radiata. Chest x-ray showed probable right lower lobe pneumonia but follow-up CTA showed a mild dependent atelectasis. Doppler study of the carotids showed less than 50% stenosis bilaterally. Echocardiogram showed 55 to 60% ejection fraction accompanied by mild regurgitation in all valves. Blood pressure tended to fluctuate during her stay and as of late has been elevated greater than 160-170 systolic, have already adjusted antihypertensives to address this. Patient is COVID-19 negative as of test date on 05/08/2021. Hemoglobin A1c was 8.8%. Cholesterol panel was elevated across the board with triglycerides at 157, cholesterol 237, LDL 166. After the patient was medically stabilized they were transferred for further rehabilitation. All available medical records have been reviewed. Plan of care was discussed with patient. Interval History: Patient is participating in therapy and making fair progress. Taking rest breaks as needed. -BM. Denies pain, palpitations, dyspnea, cough, N/V, or joint pain. Patient still endorses slight back pain and states that she just feels weak all over. Denies dysuria but patient is not a great historian. Remains afebrile. CVA: Continue secondary stroke prevention and therapy. Patient is not having any signs of worsening neurologic function, shoulder-hand syndrome, bowel or bladder dysfunction. 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 This is a new diagno sis and we are adjusting her initial treatment regimen, glucose so far fairly well controlled. Hypertension: Continue medications, hold for hypotension. Goal SBP less than 140. Patient is tolerating losartan dose at increased level, decreased dose of HCTZ and will follow for improvement in electrolytes hopefully. Leukocytosis with likely pneumonia: Work-up for UTI or pneumonia. Patient previously suspected to have pneumonia but turned out to be atelectasis. Leaning towards pneumonia at this point, wheezes which are more prevalent on the right consistent with most recent chest x-ray showing infiltrate on right lower lobe. WBCs worsened yesterday but have improved slightly today. Urinalysis was never collected, have repeated a stat draw with straight cath. Dysphagia: Continue modified diet, continue [employer] and advance as able Hypokalemia: Replace and check magnesium. Lower on recheck yesterday, awaiting labs for today. Volume depletion: Normal saline IV fluids given low rate. Recheck labs today are pending. ADL and mobility deficits: Continue therapy as above in order to improve patient's ability to perform ADLs as independently as possible and to mobilize herself with out falls. Decreased safety awareness: Potentially due to CVA, encephalopathy, or early stages of dementia. We will continue to monitor and look for clearing and improvement. All records, vitals, labs and medications were reviewed. No other issues per patient, nursing or therapy. Objective - Exam Narrative Exam: MUSCULOSKELETAL SPECIALTY EXAM CONSTITUTIONAL: Well developed, well nourished, appropriately groomed. RIGHT hand dominant. RESPIRATORY: Wheeze on the right, mostly clear on the left. No increased work of breathing. CARDIOVASCULAR: Regular Rate/ Rhythm, no swelling, edema or tenderness in BUE or BLE. All ext remities warm. GI: + bowel sounds, soft, NTTP, nondistended. INTEGUMENTARY: Normal, no lesion, rash, masses or bruising noted in extremities. MUSCULOSKELETAL: BUE and BLE normal without defect, crepitus, subluxation, effusion, arthritic changes or TTP. Slight discomfort to palpation on left flank R 4+/5 L 4- /5 ROM decreased on the left Tone within normal limits, slightly hypotonic on left NEURO: CN V : Facial sensation intact but slightly impaired on left CN VII : Left facial droop Sensation intact in all extremities without extinction with slight paresthesias on the left. No tremor noted in 4 extremities. Naming and repetition intact. Follows 1 step commands. Aphasia not appreciated Dysarthria possibly present, will continue to monitor and address if this becomes apparent Dysphagia oral phase present, diet changed Neglect not appreciated currently POSTURE and GAIT: Sitting posture good. Balance and gait deferred until seen with therapy. PSYCH: Alert, oriented x1, affect appears euthymic to slightly flattened. Insight appears intact, possibly slightly impaired. We will need to monitor the patient over the next several days to discern whether or not she does have an issue with dementia or if this is possibly encephalopathy. We will attempt to avoid make a diagnosis of dementia until patient has recovered at home and can follow-up with neurology. - Constitutional Vitals: Vital Signs - 12hr 05/14/21 05/14/21 05/15/21 22:00 23:33 03:39 Temperature 98.3 F 98.2 F Pulse Rate 58 L 63 Respiratory 16 14 Rate Respiratory 20 Rate [Back] Blood Pressure 129/65 125/53 O2 Sat by Pulse 97 98 91 Oximetry - Allied health notes Allied health notes reviewed: nursing, PT, ST, OT FIMS assessment as documented by PT/OT/ST: Locomotion- walk/wheelchair Ambulation Distance 70 - Labs CBC & Chem 7: 05/15/21 08:53 05/14/21 09:19 Labs: Laboratory Results - last 72 hr 05/12/21 05/13/21 05/13/21 21:50 04:07 04:07 WBC 12.4 H RBC 4.94 Hgb 14.9 H Hct 45.5 H MCV 92 MCH 30 MCHC 33 RDW 12.9 L Plt Count 234 Lymph % (Auto) 24.4 Price % (Auto) 5.1 Eos % (Auto) 2.5 Baso % (Auto) 0.5 Lymph # (Auto) 3.0 Price # (Auto) 0.6 Eos # (Auto) 0.3 Baso # (Auto) 0.1 Seg Neutrophils % 67.5 Seg Neutrophils # 8.4 H Sodium 137 Potassium 3.4 L Chloride 98.5 Carbon Dioxide 25 Anion Gap 17 BUN 22 H Creatinine 0.4 L Estimated GFR > 60 BUN/Creatinine Ratio 55 Glucose 163 H POC Glucose 212 H Calcium 9.5 Magnesium Total Bilirubin 0.90 AST 29 ALT 25 Alkaline Phosphatase 71 Total Protein 6.9 Albumin 4.0 Albumin/Globulin Ratio 1.4 05/13/21 05/13/21 05/13/21 04:07 09:04 17:38 WBC RBC Hgb Hct MCV MCH MCHC RDW Plt Count Lymph % (Auto) Price % (Auto) Eos % (Auto) Baso % (Auto) Lymph # (Auto) Price # (Auto) Eos # (Auto) Baso # (Auto) Seg Neutrophils % Seg Neutrophils # Sodium Potassium Chloride Carbon Dioxide Anion Gap BUN Creatinine Estimated GFR BUN/Creatinine Ratio Glucose POC Glucose 165 H 191 H Calcium Magnesium 2.00 Total Bilirubin AST ALT Alkaline Phosphatase Total Protein Albumin Albumin/Globulin Ratio 05/13/21 05/14/21 05/14/21 20:42 07:35 09:19 WBC 14.9 H RBC 4.99 Hgb 15.2 H Hct 46.0 H MCV 92 MCH 31 MCHC 33 RDW 12.7 L Plt Count 247 Lymph % (Auto) Price % (Auto) Eos % (Auto) Baso % (Auto) Lymph # (Auto) Price # (Auto) Eos # (Auto) Baso # (Auto) Seg Neutrophils % Seg Neutrophils # Sodium Potassium Chloride Carbon Dioxide Anion Gap BUN Creatinine Estimated GFR BUN/Creatinine Ratio Glucose POC Glucose 174 H 163 H Calcium Magnesium Total Bilirubin AST ALT Alkaline Phosphatase Total Protein Albumin Albumin/Globulin Ratio 05/14/21 05/14/21 05/14/21 09:19 11:59 17:07 WBC RBC Hgb Hct MCV MCH MCHC RDW Plt Count Lymph % (Auto) Price % (Auto) Eos % (Auto) Baso % (Auto) Lymph # (Auto) Price # (Auto) Eos # (Auto) Baso # (Auto) Seg Neutrophils % Seg Neutrophils # Sodium 135 L Potassium 3.3 L Chloride 97.8 L Carbon Dioxide 21 L Anion Gap 20 BUN 29 H Creatinine 0.6 Estimated GFR > 60 BUN/Creatinine Ratio 48 Glucose 172 H POC Glucose 187 H 125 H Calcium 9.4 Magnesium Total Bilirubin AST ALT Alkaline Phosphatase Total Protein Albumin Albumin/Globulin Ratio 05/14/21 05/15/21 21:00 08:53 WBC 12.0 H RBC 4.64 Hgb 14.1 Hct 42.8 MCV 92 MCH 30 MCHC 33 RDW 12.6 L Plt Count 243 Lymph % (Auto) Price % (Auto) Eos % (Auto) Baso % (Auto) Lymph # (Auto) Price # (Auto) Eos # (Auto) Baso # (Auto) Seg Neutrophils % Seg Neutrophils # Sodium Potassium Chloride Carbon Dioxide Anion Gap BUN Creatinine Estimated GFR BUN/Creatinine Ratio Glucose POC Glucose 136 H Calcium Magnesium Total Bilirubin AST ALT Alkaline Phosphatase Total Protein Albumin Albumin/Globulin Ratio - Imaging and cardiology Chest x-ray: report reviewed, image reviewed Assessment and Plan CVA: Continue Secondary Stroke Prevention (Antithrombotic, Statin (Goal LDL-C <7 0), BP control (Goal <140/90), GLU control (Goal A1c <7), and lifestyle modification). Monitor for recurrent stroke or post-stroke recrudescence. Continue neuromotor therapy as above. Family training when available. Monitor for post stroke depression, cognitive deficits, seizure, dysphagia, aphasia, shoulder hand syndrome, sensory deficits, spasticity, bowel/bladder deficits, sleep disturbance, vision deficits and DVT. Prognosis for recovery and Secondary Stroke Prevention discussed. Follow up with Neurology. No driving until cleared by Neurologist. Diabetes: Continue carb controlled diet, sliding scale insulin and metformin. Monitor glucose levels and adjust medications as needed for euglycemia. Diabetes training per nutrition. Hemoglobin A1c 8.8. Hypokalemia: Magnesium within normal limits, potassium decreased again despite replacement. Monitor and looked possibly increase replacement dosage. Leukocytosis without fever: Urine was never drawn, have repeated a stat order wi th in and out cath. Chest x-ray reviewed and showed right hilar lower lobe opacity. Pneumonia: Rocephin IV started, will start neb treatments as well. Monitor for improvement. Remains afebrile currently Dysphagia: Continue modified diet, continue [employer] with e-stim/MBS as needed to advance diet safely. Left Facial droop: Continue work with patient to improve, consider e-stim if needed or if there is affecting eating/speech Dizziness: Continue meclizine as needed, monitor for falls, discussed use of call light and do not get out of bed with patient Hypertension: Continue medication. Monitor blood pressure. Adjust medications as needed for normotension. Hold for hypotension. Goal SBP <140. Tolerating losartan at increased dose. Did also decrease HCTZ dose which will hopefully improve electrolytes ADL dysfunction: OT will work on improving ability to perform ADLs (including assistive devices) to increase independence and decrease caregiver burden and improve functional transfers and mobility training. Difficulty walking: PT will work on gait training and proper use of assistive devices and advance as appropriate to use of stairs and outside ambulation on uneven surfaces. Unsteadiness on feet: PT will work on improving static and dynamic sitting and standing balance as well as proper use of assistive devices to decrease risk of falls. Abnormality of gait: PT will work to improve safety and efficiency of gait through neuromotor training and gait training along with instruction on proper use of assistive devices. Muscle weakness: PT & OT will work on strengthening exercises to improve functional strength including mixture of closed and open kinetic chain exercise s. Debility: PT & OT will work on improving overall functional status to improve participation with ADLs, mobility and social involvement. Fatigue: PT & OT will work on improving endurance through aerobic exercises and therapeutic activity while monitoring patients tolerance for activity and vital signs as needed. DVT ppx: Lovenox Pain: Continue physical modalities in therapy and pain medications as needed to achieve functional pain control. Sleep: Monitor and address as needed. Bowel: Monitor and address as needed. Appetite: Monitor and address as needed. Discharge planning: Pending therapy progress and care plan meeting. Will continue discussion with therapy team, SW, patient and family. At this point, looks like the patient will need / supervision for cognitive reasons. Will discuss at team conference on Sunday and look to discuss further with family. Restrictions/ Precautions: Falls WB status: FWB Functional Hx: ADLs: Independent Cognition: Independent Mobility: No AD but did use 's assistance at times Barriers to Discharge: Decreased mobility and ability to perform self care, balance deficits, weakness, cognitive dysfunction Estimated Length of Stay: 1418 days Discharge Destination: Home with family Patient is a high risk for further injury due to fall, secondary CVA or recrudescence, and poor functional recovery due to CVA.
[2021-05-15 09:42] LABS: Blood Urea Nitrogen 22 mg/dL (7-17); Calcium 8.8 mg/dL (8.4-10.2); Hemolysis Index 7
[2021-05-15 10:12] LABS: BUN/Creatinine Ratio 55
[2021-05-15] MEDS: POTASSIUM CHLORIDE ER 20 MEQ TAB PO SCH (11:25)
[2021-05-15] MEDS: LOSARTAN 25 MG TAB PO SCH (11:25)
[2021-05-15] MEDS: hydroCHLOROthiazide 12.5 MG CAP PO SCH (11:25)
[2021-05-15] MEDS: CITALOPRAM 10 MG TAB PO SCH (11:25)
[2021-05-15] MEDS: ASPIRIN EC 81 MG TAB PO SCH (11:25)
[2021-05-15] MEDS: ENOXAPARIN 40 MG/0.4 ML INJ SUB-Q SCH (11:25)
[2021-05-15] MEDS: metFORMIN 500 MG TAB PO SCH ×2 (11:27→18:16)
[2021-05-15] MEDS: IPRATROPIUM/ALBUTEROL SULFATE 3 ML AMPUL.NEB IH SCH ×2 (14:26→20:01)
[2021-05-15] MEDS: cefTRIAXone/NS 1 GM/50 ML 1 GM/50 ML BAG IV SCH (23:43)
[2021-05-16] MEDS: IPRATROPIUM/ALBUTEROL SULFATE 3 ML AMPUL.NEB IH SCH ×3 (09:39→20:13)
[2021-05-16] MEDS: hydroCHLOROthiazide 12.5 MG CAP PO SCH (09:55)
[2021-05-16] MEDS: metFORMIN 500 MG TAB PO SCH ×2 (09:55→18:22)
[2021-05-16] MEDS: LOSARTAN 25 MG TAB PO SCH (09:55)
[2021-05-16] MEDS: ASPIRIN EC 81 MG TAB PO SCH (09:56)
[2021-05-16] MEDS: POTASSIUM CHLORIDE ER 20 MEQ TAB PO SCH (09:56)
[2021-05-16] MEDS: CITALOPRAM 10 MG TAB PO SCH (09:56)
[2021-05-16] MEDS: ENOXAPARIN 40 MG/0.4 ML INJ SUB-Q SCH (09:56)
--- NOTE | 2021-05-16 11:04 | Progress Note ---
Subjective Date of service: 05/16/21 Principal diagnosis: CVA Interval history: 76-year-old female with a history of hypertension and prior stroke brought in for evaluation of generalized weakness, left-sided facial droop and unstable gait. Patient had severe headaches over the last several days prior to admission. She was seen by neurology and worked up for possible CVA. CT head showed 2 small deep infarcts in the right ganglia that appear to be chronic with no other acute intracranial abnormalities. MRI brain showed an acute infarct in the right putamen and right mathews radiata. Chest x-ray showed probable right lower lobe pneumonia but follow-up CTA showed a mild dependent atelectasis. Doppler study of the carotids showed less than 50% stenosis bilaterally. Echocardiogram showed 55 to 60% ejection fraction accompanied by mild regurgitation in all valves. Blood pressure tended to fluctuate during her stay and as of late has been elevated greater than 160-170 systolic, have already adjusted antihypertensives to address this. Patient is COVID-19 negative as of test date on 05/08/2021. Hemoglobin A1c was 8.8%. Cholesterol panel was elevated across the board with triglycerides at 157, cholesterol 237, LDL 166. After the patient was medically stabilized they were transferred for further rehabilitation. All available medical records have been reviewed. Plan of care was discussed with patient. Interval History: Patient is participating in therapy and making fair progress. Taking rest breaks as needed. -BM. Denies pain, palpitations, dyspnea, cough, N/V, or joint pain. Patient states that she just feels weak all over. Remains afebrile. UA still not collected, spoke with nursing yesterday after placing a stat reorder CVA: Continue secondary stroke prevention and therapy. Patient is not having any signs of worsening neurologic function, shoulder-hand syndrome, bowel or bladder dysfunction. 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 This is a new diagnosis and we are adjusting her initial treatment regimen, glucose so far fairly well controlled. Hypertension: Continue medications, hold for hypotension. Goal SBP less than 140. Patient is tolerating losartan dose at increased level. Leukocytosis with likely pneumonia: Work-up for UTI or pneumonia. Urinalysis was never collected, have repeated a stat draw with straight cath, still not collected. Pneumonia: Continue nebulizers and antibiotics. Monitor for improvement in WBCs. Labs are pending today Dysphagia: Continue modified diet, continue RUBBER TUBING BACKER and advance as able Hypokalemia: Replace and check magnesium. Seems to have leveled out and normalized. Continue to monitor and replace as needed. Volume depletion: Improved renal function. Monitor and give IV fluids as needed. Encouraging p.o. fluids primarily ADL and mobility deficits: Continue therapy as above in order to improve erasmo ent's ability to perform ADLs as independently as possible and to mobilize herself with out falls. Decreased safety awareness: Potentially due to CVA, encephalopathy, or early stages of dementia. We will continue to monitor and look for clearing and improvement. All records, vitals, labs and medications were reviewed. No other issues per patient, nursing or therapy. Objective - Exam Narrative Exam: MUSCULOSKELETAL SPECIALTY EXAM CONSTITUTIONAL: Well developed, well nourished, appropriately groomed. RIGHT hand dominant. RESPIRATORY: Lungs sound better today, clear to auscultation but distant. No increased work of breathing. CARDIOVASCULAR: Regular Rate/ Rhythm, no swelling, edema or tenderness in BUE or BLE. All extremities warm. GI: + bowel sounds, soft, NTTP, nondistended. INTEGUMENTARY: Normal, no lesion, rash, masses or bruising noted in extremities. MUSCULOSKELETAL: BUE and BLE normal without defect, crepitus, subluxation, effusion, arthritic changes or TTP. Slight discomfort to palpation on left flank R 4+/5 L 4- /5 ROM decreased on the left Tone within normal limits, slightly hypotonic on left NEURO: CN V : Facial sensation intact but slightly impaired on left CN VII : Left facial droop Sensation intact in all extremities without extinction with slight paresthesias on the left. No tremor noted in 4 extremities. Naming and repetition intact. Follows 1 step commands. Aphasia not appreciated Dysarthria possibly present, will continue to monitor and address if this becomes apparent Dysphagia oral phase present, diet changed Neglect not appreciated currently POSTURE and GAIT: Sitting posture good. Able to ambulate with rolling walker and assistance, no loss of balance witnessed, steps are slightly choppy. PSYCH: Alert, oriented x1, affect appears euthymic to slightly flattened. Insight appears intact, possibly slightly impaired. We will need to monitor the patient over the next several days to discern whether or not she does have an issue with dementia or if this is possibly encephalopathy. We will attempt to avoid make a diagnosis of dementia until patient has recovered at home and can follow-up with neurology. - Constitutional Vitals: Vital Signs - 12hr 05/16/21 05/16/21 05/16/21 07:31 08:00 09:45 Temperature 98.0 F Pulse Rate 57 L Pulse Rate [ 79 Anterior Bilateral Throughout] Respiratory 18 Rate Respiratory 18 Rate [Anterior Bilateral Throughout] Blood Pressure 143/69 O2 Sat by Pulse 94 95 Oximetry 05/16/21 09:55 Temperature Pulse Rate 57 L Pulse Rate [ Anterior Bilateral Throughout] Respiratory Rate Respiratory Rate [Anterior Bilateral Throughout] Blood Pressure 143/69 O2 Sat by Pulse Oximetry - Allied health notes Allied health notes reviewed: nursing, PT, ST, OT, RT FIMS assessment as documented by PT/OT/ST: Locomotion- walk/wheelchair Ambulation Distance 70 - Labs CBC & Chem 7: 05/15/21 08:53 05/15/21 08:53 Labs: Laboratory Results - last 72 hr 05/13/21 05/13/21 05/14/21 17:38 20:42 07:35 WBC RBC Hgb Hct MCV MCH MCHC RDW Plt Count Sodium Potassium Chloride Carbon Dioxide Anion Gap BUN Creatinine Estimated GFR BUN/Creatinine Ratio Glucose POC Glucose 191 H 174 H 163 H Calcium 05/14/21 05/14/21 05/14/21 09:19 09:19 11:59 WBC 14.9 H RBC 4.99 Hgb 15.2 H Hct 46.0 H MCV 92 MCH 31 MCHC 33 RDW 12.7 L Plt Count 247 Sodium 135 L Potassium 3.3 L Chloride 97.8 L Carbon Dioxide 21 L Anion Gap 20 BUN 29 H Creatinine 0.6 Estimated GFR > 60 BUN/Creatinine Ratio 48 Glucose 172 H POC Glucose 187 H Calcium 9.4 05/14/21 05/14/21 05/15/21 17:07 21:00 08:53 WBC 12.0 H RBC 4.64 Hgb 14.1 Hct 42.8 MCV 92 MCH 30 MCHC 33 RDW 12.6 L Plt Count 243 Sodium Potassium Chloride Carbon Dioxide Anion Gap BUN Creatinine Estimated GFR BUN/Creatinine Ratio Glucose POC Glucose 125 H 136 H Calcium 05/15/21 05/15/21 05/15/21 08:53 11:23 17:18 WBC RBC Hgb Hct MCV MCH MCHC RDW Plt Count Sodium 137 Potassium 3.6 Chloride 101.5 Carbon Dioxide 22 Anion Gap 17 BUN 22 H Creatinine 0.4 L Estimated GFR > 60 BUN/Creatinine Ratio 55 Glucose 203 H POC Glucose 171 H 143 H Calcium 8.8 05/15/21 05/16/21 21:04 07:49 WBC RBC Hgb Hct MCV MCH MCHC RDW Plt Count Sodium Potassium Chloride Carbon Dioxide Anion Gap BUN Creatinine Estimated GFR BUN/Creatinine Ratio Glucose POC Glucose 144 H 144 H Calcium Assessment and Plan CVA: Continue Secondary Stroke Prevention (Antithrombotic, Statin (Goal LDL-C <7 0), BP control (Goal <140/90), GLU control (Goal A1c <7), and lifestyle modification). Monitor for recurrent stroke or post-stroke recrudescence. Continue neuromotor therapy as above. Family training when available. Monitor for post stroke depression, cognitive deficits, seizure, dysphagia, aphasia, shoulder hand syndrome, sensory deficits, spasticity, bowel/bladder deficits, sleep disturbance, vision deficits and DVT. Prognosis for recovery and Secondary Stroke Prevention discussed. Follow up with Neurology. No driving until cleared by Neurologist. Diabetes: Continue carb controlled diet, sliding scale insulin and metformin. Monitor glucose levels and adjust medications as needed for euglycemia. Diabetes training per nutrition. Hemoglobin A1c 8.8. Hypokalemia: Magnesium within normal limits, potassium improved, finish course of replacement and monitor. Leukocytosis without fever: Urine was never drawn, have repeated a stat order with in and out cath, still not drawn. Chest x-ray reviewed and showed right hilar lower lobe opacity. Post stroke depression: Continue Celexa and monitor Pneumonia: Continue Rocephin and nebulizer treatments until complete. Monitor for improvement. Remains afebrile currently Dysphagia: Continue modified diet, continue RUBBER TUBING BACKER with e-stim/MBS as needed to advance diet safely. Left Facial droop: Continue work with patient to improve, consider e-stim if needed or if there is affecting eating/speech Dizziness: Continue meclizine as needed, monitor for falls, discussed use of call light and do not get out of bed with patient Hypertension: Continue medication. Monitor blood pressure. Adjust medications as needed for normotension. Hold for hypotension. Goal SBP <140. Tolerating losartan at increased dose. Did also decrease HCTZ dose which will hopefully improve electrolytes ADL dysfunction: OT will work on improving ability to perform ADLs (including assistive devices) to increase independence and decrease caregiver burden and improve functional transfers and mobility training. Difficulty walking: PT will work on gait training and proper use of assistive devices and advance as appropriate to use of stairs and outside ambulation on uneven surfaces. Unsteadiness on feet: PT will work on improving static and dynamic sitting and standing balance as well as proper use of assistive devices to decrease risk of falls. Abnormality of gait: PT will work to improve safety and efficiency of gait through neuromotor training and gait training along with instruction on proper use of assistive devices. Muscle weakness: PT & OT will work on strengthening exercises to improve functional strength including mixture of closed and open kinetic chain exercises. Debility: PT & OT will work on improving overall functional status to improve participation with ADLs, mobility and social involvement. Fatigue: PT & OT will work on improving endurance through aerobic exercises and therapeutic activity while monitoring patients tolerance for activity and vital signs as needed. DVT ppx: Lovenox Pain: Continue physical modalities in therapy and pain medications as needed to achieve functional pain control. Sleep: Monitor and address as needed. Bowel: Monitor and address as needed. Appetite: Monitor and address as needed. Discharge planning: Pending therapy progress and care plan meeting. Will continue discussion with therapy team, SW, patient and family. At this point, looks like the patient will need 24/ supervision for cognitive reasons. Will discuss at team conference on Sunday and look to discuss further with family. Restrictions/ Precautions: Falls WB status: FWB Functional Hx: ADLs: Independent Cognition: Independent Mobility: No AD but did use 's assistance at times Barriers to Discharge: Decreased mobility and ability to perform self care, balance deficits, weakness, cognitive dysfunction Estimated Length of Stay: 1418 days Discharge Destination: Home with family Patient is a high risk for further injury due to fall, secondary CVA or recrudescence, and poor functional recovery due to CVA.
[2021-05-16 12:53] LABS: Hematocrit 44.5 % (30.3-42.9); Hemoglobin 14.9 gm/dl (10.1-14.3); Mean Corpuscular HGB Conc 33 % (30-34); Mean Corpuscular Volume 91 fl (79-97); Platelet Count 253 K/mm3 (140-440); Red Blood Count 4.87 M/mm3 (3.65-5.03); Red Cell Distribution Width 12.9 % (13.2-15.2)
[2021-05-16 13:09] LABS: Blood Urea Nitrogen 18 mg/dL (7-17); Calcium 9.4 mg/dL (8.4-10.2); Hemolysis Index 7
[2021-05-16 13:16] LABS: BUN/Creatinine Ratio 36
[2021-05-16 15:52] LABS: Bilirubin,Urine NEG (Negative); Blood,Urine NEG (Negative); Color,Urine Yellow (Yellow); Mucus,Urine 1+ /HPF; Protein,Urine <15 mg/dL mg/dL (Negative); Urobilinogen,Urine < 2.0 mg/dL (<2.0)
[2021-05-16] MEDS: cefTRIAXone/NS 1 GM/50 ML 1 GM/50 ML BAG IV SCH (21:37)
[2021-05-16] MEDS: HYDROcodone/ACETAMINOPHEN 5-325 MG TAB PO PRN (21:37)
[2021-05-17 07:34] LABS: Hematocrit 42.1 % (30.3-42.9); Mean Corpuscular HGB Conc 33 % (30-34); Mean Corpuscular Volume 92 fl (79-97); Platelet Count 233 K/mm3 (140-440); Red Blood Count 4.59 M/mm3 (3.65-5.03)
[2021-05-17] MEDS: IPRATROPIUM/ALBUTEROL SULFATE 3 ML AMPUL.NEB IH SCH ×3 (07:48→21:18)
[2021-05-17 07:56] LABS: Blood Urea Nitrogen 15 mg/dL (7-17); Calcium 8.9 mg/dL (8.4-10.2); Hemolysis Index 8
[2021-05-17 07:58] LABS: BUN/Creatinine Ratio 38
[2021-05-17] MEDS: metFORMIN 500 MG TAB PO SCH ×2 (10:41→18:23)
[2021-05-17] MEDS: HYDROcodone/ACETAMINOPHEN 5-325 MG TAB PO PRN (10:41)
[2021-05-17] MEDS: ASPIRIN EC 81 MG TAB PO SCH (10:42)
[2021-05-17] MEDS: LOSARTAN 25 MG TAB PO SCH (10:42)
[2021-05-17] MEDS: CITALOPRAM 10 MG TAB PO SCH (10:42)
[2021-05-17] MEDS: ENOXAPARIN 40 MG/0.4 ML INJ SUB-Q SCH (10:42)
--- NOTE | 2021-05-17 13:08 | Progress Note ---
Subjective Date of service: 05/17/21 Principal diagnosis: CVA Interval history: 76-year-old female with a history of hypertension and prior stroke brought in for evaluation of generalized weakness, left-sided facial droop and unstable gait. Patient had severe headaches over the last several days prior to admission. She was seen by neurology and worked up for possible CVA. CT head showed 2 small deep infarcts in the right ganglia that appear to be chronic with no other acute intracranial abnormalities. MRI brain showed an acute infarct in the right putamen and right mathews radiata. Chest x-ray showed probable right lower lobe pneumonia but follow-up CTA showed a mild dependent atelectasis. Doppler study of the carotids showed less than 50% stenosis bilaterally. Echocardiogram showed 55 to 60% ejection fraction accompanied by mild regurgitation in all valves. Blood pressure tended to fluctuate during her stay and as of late has been elevated greater than 160-170 systolic, have already adjusted antihypertensives to address this. Patient is COVID-19 negative as of test date on 05/08/2021. Hemoglobin A1c was 8.8%. Cholesterol panel was elevated across the board with triglycerides at 157, cholesterol 237, LDL 166. After the patient was medically stabilized they were transferred for further rehabilitation. All available medical records have been reviewed. Plan of care was discussed with patient. Interval History: Patient is participating in therapy and making fair progress. Taking rest breaks as needed. -BM, continue Dulcolax. Denies pain, palpitations, dyspnea, cough, N/V, or joint pain. Patient states that she just feels weak all over. Low-grade fever overnight. UA collected and does show small amount of leuk esterase and WBCs in the urine, no growth to date on culture. WBCs elevated yesterday to highest point since admission but back down to normal today, given fever and elevated leukocytes while on antibiotics, will extend and await culture and s ensitivity for possibility of needing to alter course of antibiotics. CVA: Continue secondary stroke prevention and therapy. Patient is not having any signs of worsening neurologic function, shoulder-hand syndrome, bowel or bladder dysfunction. 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 This is a new diagnosi s and we are adjusting her initial treatment regimen, glucose so far fairly well controlled. Hypertension: Continue medications, hold for hypotension. Goal SBP less than 140. Patient is tolerating losartan dose at increased level. Leukocytosis with likely pneumonia: Work-up for UTI or pneumonia. Urinalysis suggestive of UTI but will await culture and sensitivity results prior to changing antibiotic course. Leukocytosis worsened yesterday but improved to normal today Pneumonia: Continue nebulizers and antibiotics. Monitor for improvement in WBCs. Labs are pending today Dysphagia: Continue modified diet, continue TREATMENT COORDINATOR and advance as able Hypokalemia: Replaced and normalized. Continue to monitor and replace as needed. Volume depletion: Improved renal function. Monitor and give IV fluids as needed. Encouraging p.o. fluids primarily ADL and mobility deficits: Continue therapy as above in order to improve patient's ability to perform ADLs as independently as possible and to mobilize herself with out falls. Decreased safety awareness: Potentially due to CVA, encephalopathy, or early stages of dementia. We will continue to monitor and look for clearing and improvement. Patient will need 24/7 supervision at home, has poor carryover day-to-day and within the same therapy session. All records, vitals, labs and medications were reviewed. No other issues per patient, nursing or therapy. Patient discussed during team conference, having poor carryover within sessions as well as day-to-day. I have not witnessed her stumbling but she is still having balance issues with therapy when ambulating. At this point the patient will not be safe for discharge home utilizing a walker due to her balance issues. She will need a wheelchair at discharge along with a shower chair. OT mentioned that she did come close to falling off of the shower chair while attempting to wash her lower extremities and are requesting a shower chair with 2 arms/handles. Will attempt to bring the family and this week for brief family training to ensure that they are okay taking care of her at her current level. If not we will need to proceed to looking for alternative arrangements including possible SNF placement. We will look to discharge home or to SNF towards the middle of next week and hope to see further improvement over the coming days. Still uncertain of patient's mental status in regards to whether or not this is dementia are possibly encephalopathy/delirium. Does appear consistent with dementia as the patient seems to be worse during the afternoons/evening time. We will extend antibiotics for a few more days awaiting urine culture and look to discontinue antibiotics towards the end of the week. Objective - Exam Narrative Exam: MUSCULOSKELETAL SPECIALTY EXAM CONSTITUTIONAL: Well developed, well nourished, appropriately groomed. RIGHT hand dominant. RESPIRATORY: Clear to auscultation but distant. No increased work of breathing. CARDIOVASCULAR: Regular Rate/ Rhythm, no swelling, edema or tenderness in BUE or BLE. All extremities warm. GI: + bowel sounds, soft, NTTP, nondistended. INTEGUMENTARY: Normal, no lesion, rash, masses or bruising noted in extremities. MUSCULOSKELETAL: BUE and BLE normal without defect, crepitus, subluxation, effusion, arthritic changes or TTP. R 4+/5 L 4- /5 ROM decreased on the left Tone within normal limits NEURO: CN V : Facial sensation intact but slightly impaired on left CN VII : Left facial droop Sensation intact in all extremities without extinction with slight paresthesias on the left. No tremor noted in 4 extremities. Naming and repetition intact. Follows 1 step commands. Aphasia not appreciated Dysarthria possibly present Dysphagia oral phase present, diet changed Neglect not appreciated currently POSTURE and GAIT: Sitting posture good. Able to ambulate with rolling walker and assistance, steps are slightly choppy with occasional loss of balance. PSYCH: Alert, oriented x1, affect appears euthymic to slightly flattened. Insight appears intact, possibly slightly impaired. We will need to monitor the patient over the next several days to discern whether or not she does have an issue with dementia or if this is possibly encephalopathy. We will attempt to avoid make a diagnosis of dementia until patient has recovered at home and can follow-up with neurology. - Constitutional Vitals: Vital Signs - 12hr 05/17/21 05/17/21 05/17/21 04:11 07:51 08:43 Temperature 99.9 F H 97.4 F L Pulse Rate 65 71 Pulse Rate [ Anterior Bilateral Throughout] Respiratory 16 18 Rate Respiratory Rate [Anterior Bilateral Throughout] Blood Pressure 143/68 138/65 O2 Sat by Pulse 95 95 91 Oximetry 05/17/21 09:00 Temperature Pulse Rate Pulse Rate [ 69 Anterior Bilateral Throughout] Respiratory Rate Respiratory 20 Rate [Anterior Bilateral Throughout] Blood Pressure O2 Sat by Pulse Oximetry - Allied health notes Allied health notes reviewed: nursing, PT, ST, OT, RT FIMS assessment as documented by PT/OT/ST: Locomotion- walk/wheelchair Ambulation Distance 70 - Labs CBC & Chem 7: 05/17/21 07:09 05/17/21 07:09 Labs: Laboratory Results - last 72 hr 05/14/21 05/14/21 05/15/21 17:07 21:00 08:53 WBC 12.0 H RBC 4.64 Hgb 14.1 Hct 42.8 MCV 92 MCH 30 MCHC 33 RDW 12.6 L Plt Count 243 Sodium Potassium Chloride Carbon Dioxide Anion Gap BUN Creatinine Estimated GFR BUN/Creatinine Ratio Glucose POC Glucose 125 H 136 H Calcium Urine Color Urine Turbidity Urine pH Ur Specific [place] Urine Protein Urine Glucose (UA) Urine Ketones Urine Blood Urine Nitrite Urine Bilirubin Urine Urobilinogen Ur Leukocyte Esterase Urine WBC (Auto) Urine RBC (Auto) U Epithel Cells (Auto) Urine Mucus 05/15/21 05/15/21 05/15/21 08:53 11:23 17:18 WBC RBC Hgb Hct MCV MCH MCHC RDW Plt Count Sodium 137 Potassium 3.6 Chloride 101.5 Carbon Dioxide 22 Anion Gap 17 BUN 22 H Creatinine 0.4 L Estimated GFR > 60 BUN/Creatinine Ratio 55 Glucose 203 H POC Glucose 171 H 143 H Calcium 8.8 Urine Color Urine Turbidity Urine pH Ur Specific [place] Urine Protein Urine Glucose (UA) Urine Ketones Urine Blood Urine Nitrite Urine Bilirubin Urine Urobilinogen Ur Leukocyte Esterase Urine WBC (Auto) Urine RBC (Auto) U Epithel Cells (Auto) Urine Mucus 05/15/21 05/16/21 05/16/21 21:04 07:49 11:53 WBC RBC Hgb Hct MCV MCH MCHC RDW Plt Count Sodium Potassium Chloride Carbon Dioxide Anion Gap BUN Creatinine Estimated GFR BUN/Creatinine Ratio Glucose POC Glucose 144 H 144 H 210 H Calcium Urine Color Urine Turbidity Urine pH Ur Specific [place] Urine Protein Urine Glucose (UA) Urine Ketones Urine Blood Urine Nitrite Urine Bilirubin Urine Urobilinogen Ur Leukocyte Esterase Urine WBC (Auto) Urine RBC (Auto) U Epithel Cells (Auto) Urine Mucus 05/16/21 05/16/21 05/16/21 12:26 12:26 15:05 WBC 15.6 H RBC 4.87 Hgb 14.9 H Hct 44.5 H MCV 91 MCH 31 MCHC 33 RDW 12.9 L Plt Count 253 Sodium 137 Potassium 3.9 Chloride 101.6 Carbon Dioxide 20 L Anion Gap 19 BUN 18 H Creatinine 0.5 L Estimated GFR > 60 BUN/Creatinine Ratio 36 Glucose 229 H POC Glucose Calcium 9.4 Urine Color Yellow Urine Turbidity Slightly-cloudy Urine pH 6.0 Ur Specific [place] 1.020 Urine Protein <15 mg/dl Urine Glucose (UA) 50 Urine Ketones 20 Urine Blood Neg Urine Nitrite Neg Urine Bilirubin Neg Urine Urobilinogen < 2.0 Ur Leukocyte Esterase Sm Urine WBC (Auto) 21.0 H Urine RBC (Auto) 2.0 U Epithel Cells (Auto) 8.0 Urine Mucus 1+ 05/16/21 05/17/21 05/17/21 16:11 07:09 07:09 WBC 11.0 RBC 4.59 Hgb 14.0 Hct 42.1 MCV 92 MCH 31 MCHC 33 RDW 13.0 L Plt Count 233 Sodium 134 L Potassium 3.7 Chloride 98.6 Carbon Dioxide 22 Anion Gap 17 BUN 15 Creatinine 0.4 L Estimated GFR > 60 BUN/Creatinine Ratio 38 Glucose 197 H POC Glucose 160 H Calcium 8.9 Urine Color Urine Turbidity Urine pH Ur Specific [place] Urine Protein Urine Glucose (UA) Urine Ketones Urine Blood Urine Nitrite Urine Bilirubin Urine Urobilinogen Ur Leukocyte Esterase Urine WBC (Auto) Urine RBC (Auto) U Epithel Cells (Auto) Urine Mucus 05/17/21 05/17/21 08:04 12:02 WBC RBC Hgb Hct MCV MCH MCHC RDW Plt Count Sodium Potassium Chloride Carbon Dioxide Anion Gap BUN Creatinine Estimated GFR BUN/Creatinine Ratio Glucose POC Glucose 194 H 208 H Calcium Urine Color Urine Turbidity Urine pH Ur Specific [place] Urine Protein Urine Glucose (UA) Urine Ketones Urine Blood Urine Nitrite Urine Bilirubin Urine Urobilinogen Ur Leukocyte Esterase Urine WBC (Auto) Urine RBC (Auto) U Epithel Cells (Auto) Urine Mucus Assessment and Plan CVA: Continue Secondary Stroke Prevention (Antithrombotic, Statin (Goal LDL-C <7 0), BP control (Goal <140/90), GLU control (Goal A1c <7), and lifestyle modification). Monitor for recurrent stroke or post-stroke recrudescence. Continue neuromotor therapy as above. Family training when available. Monitor for post stroke depression, cognitive deficits, seizure, dysphagia, aphasia, shoulder hand syndrome, sensory deficits, spasticity, bowel/bladder deficits, sleep disturbance, vision deficits and DVT. Prognosis for recovery and Secondary Stroke Prevention discussed. Follow up with Neurology. No driving until cleared by Neurologist. Diabetes: Continue carb controlled diet, sliding scale insulin and metformin. Monitor glucose levels and adjust medications as needed for euglycemia. Diabetes training per nutrition. Hemoglobin A1c 8.8. Hypokalemia: Magnesium within normal limits, potassium improved, monitor. Leukocytosis with fever overnight: Urine drawn after several days of antibiotics, suggestive of UTI. Chest x-ray reviewed and showed right hilar lower lobe opacity. Patient's WBCs elevated to a high point and she spiked a low-grade fever while on IV antibiotics. Will monitor urine culture and possibly need to change course on antibiotics. Post stroke depression: Continue Celexa and monitor Pneumonia: Continue Rocephin and nebulizer treatments until complete. Monitor for improvement. Slight fever overnight Dysphagia: Continue modified diet, continue TREATMENT COORDINATOR with e-stim/MBS as needed to advance diet safely. Left Facial droop: Continue work with patient to improve, consider e-stim if needed or if there is affecting eating/speech Dizziness: Continue meclizine as needed, monitor for falls, discussed use of call light and do not get out of bed with patient Hypertension: Continue medication. Monitor blood pressure. Adjust medications as needed for normotension. Hold for hypotension. Goal SBP <140. Tolerating losartan at increased dose. Did also decrease HCTZ dose which will hopefully improve electrolytes ADL dysfunction: OT will work on improving ability to perform ADLs (including assistive devices) to increase independence and decrease caregiver burden and improve functional transfers and mobility training. Difficulty walking: PT will work on gait training and proper use of assistive devices and advance as appropriate to use of stairs and outside ambulation on uneven surfaces. Unsteadiness on feet: PT will work on improving static and dynamic sitting and standing balance as well as proper use of assistive devices to decrease risk of falls. Abnormality of gait: PT will work to improve safety and efficiency of gait thro [facility] neuromotor training and gait training along with instruction on proper use of assistive devices. Muscle weakness: PT & OT will work on strengthening exercises to improve functional strength including mixture of closed and open kinetic chain exercises. Debility: PT & OT will work on improving overall functional status to improve participation with ADLs, mobility and social involvement. Fatigue: PT & OT will work on improving endurance through aerobic exercises and therapeutic activity while monitoring patients tolerance for activity and vital signs as needed. DVT ppx: Lovenox Pain: Continue physical modalities in therapy and pain medications as needed to achieve functional pain control. Sleep: Monitor and address as needed. Bowel: Monitor and address as needed. Appetite: Monitor and address as needed. Discharge planning: Pending therapy progress and care plan meeting. Will continue discussion with therapy team, SW, patient and family. At this point, looks like the patient will need 24/7 supervision for cognitive reasons. We will look to discharge patient at the middle of next week, will see if we can obtain permission to bring the family in for family training towards the end of this week to ensure that they are capable of performing proper oversight for her for safe discharge home. Restrictions/ Precautions: Falls WB status: FWB Functional Hx: ADLs: Independent Cognition: Independent Mobility: No AD but did use 's assistance at times Barriers to Discharge: Decreased mobility and ability to perform self care, balance deficits, weakness, cognitive dysfunction Estimated Length of Stay: 1418 days Discharge Destination: Home with family DME: Patient will need discharge with a shower chair with handles. She will also need a wheelchair as she is unsafe to perform MR ADLs in the home environment with lesser assistive devices including rolling walker, quad cane, hemiwalker which have all been tried in the rehab setting. She tends to lose balance and while standing at countertops performing ADLs such as brushing her teeth she also loses balance. Patient is able to maneuver a wheelchair in the home and is willing to utilize it in the home to improve her ability to perform MR ADLs and to improve her independence. Greater than 37 minutes was invested in patient care today including discussion of the patient's progress with therapy and other staff as well as reviewing available data in the EMR and determining the patient's likely discharge options. Greater than 50% of this time was invested in counseling and coordinating care. Patient is a high risk for further injury due to fall, secondary CVA or recrudescence, and poor functional recovery due to CVA.
[2021-05-17] MEDS: hydroCHLOROthiazide 12.5 MG CAP PO SCH (13:14)
[2021-05-17] MEDS: cefTRIAXone/NS 1 GM/50 ML 1 GM/50 ML BAG IV SCH (22:40)
--- NOTE | 2021-05-18 07:26 | Progress Note ---
Subjective Date of service: 05/18/21 Principal diagnosis: CVA Interval history: 76-year-old female with a history of hypertension and prior stroke brought in for evaluation of generalized weakness, left-sided facial droop and unstable gait. Patient had severe headaches over the last several days prior to admission. She was seen by neurology and worked up for possible CVA. CT head showed 2 small deep infarcts in the right ganglia that appear to be chronic with no other acute intracranial abnormalities. MRI brain showed an acute infarct in the right putamen and right mathews radiata. Chest x-ray showed probable right lower lobe pneumonia but follow-up CTA showed a mild dependent atelectasis. Doppler study of the carotids showed less than 50% stenosis bilaterally. Echocardiogram showed 55 to 60% ejection fraction accompanied by mild regurgitation in all valves. Blood pressure tended to fluctuate during her stay and as of late has been elevated greater than 160-170 systolic, have already adjusted antihypertensives to address this. Patient is COVID-19 negative as of test date on 05/08/2021. Hemoglobin A1c was 8.8%. Cholesterol panel was elevated across the board with triglycerides at 157, cholesterol 237, LDL 166. After the patient was medically stabilized they were transferred for further rehabilitation. All available medical records have been reviewed. Plan of care was discussed with patient. Interval History: Patient is participating in therapy and making fair progress. Taking rest breaks as needed. +BM, continue Dulcolax. Denies palpitations, dyspnea, cough, N/V, or joint pain. Patient states that she just feels weak all over. Afebrile overnight. Continue therapy and monitor for Urine culture results. Patient stating she wants to go home. Complaining of service concerns. Explained that we need to finish antibiotics and help her improve strength a little more. CVA: Continue secondary stroke prevention and therapy. Patient is not having any signs of worsening neurologic function, shoulder-hand syndrome, bowel or bladder dysfunction. 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 LLE neuropathy this AM Diabetes: Continue to monitor glucose and continue meds. This is a new diagnosis and we are adjusting her initial treatment regimen, glucose so far fairly well controlled. Hypertension: Continue medications, hold for hypotension. Goal SBP less than 140. Patient is tolerating losartan dose at increased level. Leukocytosis with likely pneumonia: Work-up for UTI or pneumonia. Urinalysis suggestive of UTI but will await culture and sensitivity results prior to changing antibiotic course. Leukocytosis normal yesterday, pending today Pneumonia: Continue nebulizers and antibiotics. Monitor for improvement. Labs are pending today Dysphagia: Continue modified diet, continue REFERENCE ASSISTANT and advance as able Hypokalemia: Replaced and normalized. Continue to monitor and replace as needed. Volume depletion: Improved renal function. Monitor and give IV fluids as needed. Encouraging p.o. fluids primarily ADL and mobility deficits: Continue therapy as above in order to improve patient's ability to perform ADLs as independently as possible and to mobilize herself with out falls. Decreased safety awareness: Potentially due to CVA, encephalopathy, or early stages of dementia. We will continue to monitor and look for clearing and improvement. Patient will need 24/7 supervision at home, has poor carryover day-to-day and within the same therapy session. All records, vitals, labs and medications were reviewed. No other issues per patient, nursing or therapy. Objective - Exam Narrative Exam: MUSCULOSKELETAL SPECIALTY EXAM CONSTITUTIONAL: Well developed, well nourished, appropriately groomed. RIGHT hand dominant. RESPIRATORY: Clear to auscultation but distant. No increased work of breathing. CARDIOVASCULAR: Regular Rate/ Rhythm, no swelling, edema or tenderness in BUE or BLE. All extremities warm. GI: + bowel sounds, soft, NTTP, nondistended. INTEGUMENTARY: Normal, no lesion, rash, masses or bruising noted in extremities. MUSCULOSKELETAL: BUE and BLE normal without defect, crepitus, subluxation, effusion, arthritic changes or TTP. R 4+/5 L 4- /5 ROM decreased on the left Tone within normal limits NEURO: CN V : Facial sensation intact but slightly impaired on left CN VII : Left facial droop Sensation intact in all extremities without extinction with slight paresthesias on the left. No tremor noted in 4 extremities. Naming and repetition intact. Follows 1 step commands. Aphasia not appreciated Dysarthria possibly present Dysphagia oral phase present, diet changed Neglect not appreciated currently POSTURE and GAIT: Sitting posture good. Able to ambulate with rolling walker and assistance, steps are slightly choppy with occasional loss of balance. Remains a fall risk PSYCH: Alert, oriented x1, affect appears euthymic to slightly flattened. Insight appears slightly impaired. Seems that the patient is worse in the afternoon which is likely sundowning. We will still defer on diagnosing with dementia as the patient did have encephalopathy and needs to clear, follow-up with neurology as an outpatient. Poor carryover - Constitutional Vitals: Vital Signs - 12hr 05/17/21 05/17/21 05/17/21 19:46 21:20 21:21 Temperature 98.7 F Pulse Rate 68 Pulse Rate [ 72 Anterior Bilateral Throughout] Respiratory 18 Rate Respiratory 20 Rate [Anterior Bilateral Throughout] Blood Pressure 132/68 O2 Sat by Pulse 97 97 Oximetry 05/17/21 05/18/21 22:00 03:45 Temperature 98.5 F Pulse Rate 70 Pulse Rate [ Anterior Bilateral Throughout] Respiratory 12 Rate Respiratory Rate [Anterior Bilateral Throughout] Blood Pressure 132/77 O2 Sat by Pulse 98 97 Oximetry - Allied health notes Allied health notes reviewed: nursing, PT, ST, OT, RT FIMS assessment as documented by PT/OT/ST: Locomotion- walk/wheelchair Ambulation Distance 70 - Labs CBC & Chem 7: 05/17/21 07:09 05/17/21 07:09 Labs: Laboratory Results - last 72 hr 05/15/21 05/15/21 05/15/21 08:53 08:53 11:23 WBC 12.0 H RBC 4.64 Hgb 14.1 Hct 42.8 MCV 92 MCH 30 MCHC 33 RDW 12.6 L Plt Count 243 Sodium 137 Potassium 3.6 Chloride 101.5 Carbon Dioxide 22 Anion Gap 17 BUN 22 H Creatinine 0.4 L Estimated GFR > 60 BUN/Creatinine Ratio 55 Glucose 203 H POC Glucose 171 H Calcium 8.8 Urine Color Urine Turbidity Urine pH Ur Specific Jenkins Urine Protein Urine Glucose (UA) Urine Ketones Urine Blood Urine Nitrite Urine Bilirubin Urine Urobilinogen Ur Leukocyte Esterase Urine WBC (Auto) Urine RBC (Auto) U Epithel Cells (Auto) Urine Mucus 05/15/21 05/15/21 05/16/21 17:18 21:04 07:49 WBC RBC Hgb Hct MCV MCH MCHC RDW Plt Count Sodium Potassium Chloride Carbon Dioxide Anion Gap BUN Creatinine Estimated GFR BUN/Creatinine Ratio Glucose POC Glucose 143 H 144 H 144 H Calcium Urine Color Urine Turbidity Urine pH Ur Specific Jenkins Urine Protein Urine Glucose (UA) Urine Ketones Urine Blood Urine Nitrite Urine Bilirubin Urine Urobilinogen Ur Leukocyte Esterase Urine WBC (Auto) Urine RBC (Auto) U Epithel Cells (Auto) Urine Mucus 05/16/21 05/16/21 05/16/21 11:53 12:26 12:26 WBC 15.6 H RBC 4.87 Hgb 14.9 H Hct 44.5 H MCV 91 MCH 31 MCHC 33 RDW 12.9 L Plt Count 253 Sodium 137 Potassium 3.9 Chloride 101.6 Carbon Dioxide 20 L Anion Gap 19 BUN 18 H Creatinine 0.5 L Estimated GFR > 60 BUN/Creatinine Ratio 36 Glucose 229 H POC Glucose 210 H Calcium 9.4 Urine Color Urine Turbidity Urine pH Ur Specific Jenkins Urine Protein Urine Glucose (UA) Urine Ketones Urine Blood Urine Nitrite Urine Bilirubin Urine Urobilinogen Ur Leukocyte Esterase Urine WBC (Auto) Urine RBC (Auto) U Epithel Cells (Auto) Urine Mucus 05/16/21 05/16/21 05/17/21 15:05 16:11 07:09 WBC 11.0 RBC 4.59 Hgb 14.0 Hct 42.1 MCV 92 MCH 31 MCHC 33 RDW 13.0 L Plt Count 233 Sodium Potassium Chloride Carbon Dioxide Anion Gap BUN Creatinine Estimated GFR BUN/Creatinine Ratio Glucose POC Glucose 160 H Calcium Urine Color Yellow Urine Turbidity Slightly-cloudy Urine pH 6.0 Ur Specific Jenkins 1.020 Urine Protein <15 mg/dl Urine Glucose (UA) 50 Urine Ketones 20 Urine Blood Neg Urine Nitrite Neg Urine Bilirubin Neg Urine Urobilinogen < 2.0 Ur Leukocyte Esterase Sm Urine WBC (Auto) 21.0 H Urine RBC (Auto) 2.0 U Epithel Cells (Auto) 8.0 Urine Mucus 1+ 05/17/21 05/17/21 05/17/21 07:09 08:04 12:02 WBC RBC Hgb Hct MCV MCH MCHC RDW Plt Count Sodium 134 L Potassium 3.7 Chloride 98.6 Carbon Dioxide 22 Anion Gap 17 BUN 15 Creatinine 0.4 L Estimated GFR > 60 BUN/Creatinine Ratio 38 Glucose 197 H POC Glucose 194 H 208 H Calcium 8.9 Urine Color Urine Turbidity Urine pH Ur Specific Jenkins Urine Protein Urine Glucose (UA) Urine Ketones Urine Blood Urine Nitrite Urine Bilirubin Urine Urobilinogen Ur Leukocyte Esterase Urine WBC (Auto) Urine RBC (Auto) U Epithel Cells (Auto) Urine Mucus 05/17/21 05/17/21 16:06 20:02 WBC RBC Hgb Hct MCV MCH MCHC RDW Plt Count Sodium Potassium Chloride Carbon Dioxide Anion Gap BUN Creatinine Estimated GFR BUN/Creatinine Ratio Glucose POC Glucose 192 H 165 H Calcium Urine Color Urine Turbidity Urine pH Ur Specific Jenkins Urine Protein Urine Glucose (UA) Urine Ketones Urine Blood Urine Nitrite Urine Bilirubin Urine Urobilinogen Ur Leukocyte Esterase Urine WBC (Auto) Urine RBC (Auto) U Epithel Cells (Auto) Urine Mucus Assessment and Plan CVA: Continue Secondary Stroke Prevention (Antithrombotic, Statin (Goal LDL-C <70), BP control (Goal <140/90), GLU control (Goal A1c <7), and lifestyle modification). Monitor for recurrent stroke or post-stroke recrudescence. Continue neuromotor therapy as above. Family training when available. Monitor for post stroke depression, cognitive deficits, seizure, dysphagia, aphasia, shoulder hand syndrome, sensory deficits, spasticity, bowel/bladder deficits, sleep disturbance, vision deficits and DVT. Prognosis for recovery and Secondary Stroke Prevention discussed. Follow up with Neurology. No driving until cleared by Neurologist. Diabetes: Continue carb controlled diet, sliding scale insulin and metformin. Monitor glucose levels and adjust medications as needed for euglycemia. Diabetes training per nutrition. Hemoglobin A1c 8.8. Hypokalemia: Magnesium within normal limits, potassium improved, monitor. Leukocytosis : Urine drawn after several days of antibiotics, suggestive of UTI. Chest x-ray reviewed and showed right hilar lower lobe opacity. Patient's WBCs elevated to a high point (15.6) and she spiked a low-grade fever (99.9) while on IV antibiotics. Will monitor urine culture and possibly need to change course on antibiotics. Post stroke depression: Continue Celexa and monitor Pneumonia: Continue Rocephin and nebulizer treatments until complete. Monitor for improvement. Afebrile overnight Dysphagia: Continue modified diet, continue REFERENCE ASSISTANT with e-stim/MBS as needed to advance diet safely. Left Facial droop: Continue work with patient to improve, consider e-stim if needed or if there is affecting eating/speech Dizziness: Continue meclizine as needed, monitor for falls, discussed use of call light and do not get out of bed with patient, dizziness seems to have improved but patient remains high fall risk Hypertension: Continue medication. Monitor blood pressure. Adjust medications as needed for normotension. Hold for hypotension. Goal SBP <140. Tolerating losartan at increased dose. ADL dysfunction: OT will work on improving ability to perform ADLs (including assistive devices) to increase independence and decrease caregiver burden and improve functional transfers and mobility training. Difficulty walking: PT will work on gait training and proper use of assistive devices and advance as appropriate to use of stairs and outside ambulation on uneven surfaces. Unsteadiness on feet: PT will work on improving static and dynamic sitting and standing balance as well as proper use of assistive devices to decrease risk of falls. Abnormality of gait: PT will work to improve safety and efficiency of gait through neuromotor training and gait training along with instruction on proper use of assistive devices. Muscle weakness: PT & OT will work on strengthening exercises to improve fun ctional strength including mixture of closed and open kinetic chain exercises. Debility: PT & OT will work on improving overall functional status to improve participation with ADLs, mobility and social involvement. Fatigue: PT & OT will work on improving endurance through aerobic exercises and therapeutic activity while monitoring patients tolerance for activity and vital signs as needed. DVT ppx: Lovenox Pain: Continue physical modalities in therapy and pain medications as needed to achieve functional pain control. Sleep: Monitor and address as needed. Bowel: Monitor and address as needed. Appetite: Monitor and address as needed. Discharge planning: Pending therapy progress and care plan meeting. Will continue discussion with therapy team, SW, patient and family. At this point, looks like the patient will need 24/7 supervision for cognitive reasons. We will look to discharge patient at the middle of next week, will see if we can obtain permission to bring the family in for family training towards the end of this week to ensure that they are capable of performing proper oversight for her for safe discharge home. Restrictions/ Precautions: Falls WB status: FWB Functional Hx: ADLs: Independent Cognition: Independent Mobility: No AD but did use 's assistance at times Barriers to Discharge: Decreased mobility and ability to perform self care, balance deficits, weakness, cognitive dysfunction Estimated Length of Stay: 1418 days Discharge Destination: Home with family DME: Patient will need discharge with a shower chair with handles. She will also need a wheelchair as she is unsafe to perform MR ADLs in the home environment with lesser assistive devices including rolling walker, quad cane, hemiwalker which have all been tried in the rehab setting. She tends to lose balance and while standing at countertops performing ADLs such as brushing her teeth she also loses balance. Patient is able to maneuver a wheelchair in the home and is willing to utilize it in the home to improve her ability to perform MR ADLs and to improve her independence. Patient is a high risk for further injury due to fall, secondary CVA or recrudescence, and poor functional recovery due to CVA.
[2021-05-18] MEDS: IPRATROPIUM/ALBUTEROL SULFATE 3 ML AMPUL.NEB IH SCH (08:38)
[2021-05-18] MEDS: hydroCHLOROthiazide 12.5 MG CAP PO SCH (09:12)
[2021-05-18] MEDS: ENOXAPARIN 40 MG/0.4 ML INJ SUB-Q SCH (09:12)
[2021-05-18] MEDS: CITALOPRAM 10 MG TAB PO SCH (09:13)
[2021-05-18] MEDS: metFORMIN 500 MG TAB PO SCH ×2 (09:13→17:44)
[2021-05-18] MEDS: ASPIRIN EC 81 MG TAB PO SCH (09:13)
[2021-05-18] MEDS: LOSARTAN 25 MG TAB PO SCH (09:13)
[2021-05-18] MEDS: HYDROcodone/ACETAMINOPHEN 5-325 MG TAB PO PRN (09:20)
[2021-05-18] MEDS: cefTRIAXone/NS 1 GM/50 ML 1 GM/50 ML BAG IV SCH (21:40)
[2021-05-19] MEDS: HYDROcodone/ACETAMINOPHEN 5-325 MG TAB PO PRN (06:11)
--- NOTE | 2021-05-19 07:51 | Progress Note ---
Subjective Date of service: 05/19/21 Principal diagnosis: CVA Interval history: 76-year-old female with a history of hypertension and prior stroke brought in for evaluation of generalized weakness, left-sided facial droop and unstable gait. Patient had severe headaches over the last several days prior to admission. She was seen by neurology and worked up for possible CVA. CT head showed 2 small deep infarcts in the right ganglia that appear to be chronic with no other acute intracranial abnormalities. MRI brain showed an acute infarct in the right putamen and right mathews radiata. Chest x-ray showed probable right lower lobe pneumonia but follow-up CTA showed a mild dependent atelectasis. Doppler study of the carotids showed less than 50% stenosis bilaterally. Echocardiogram showed 55 to 60% ejection fraction accompanied by mild regurgitation in all valves. Blood pressure tended to fluctuate during her stay and as of late has been elevated greater than 160-170 systolic, have already adjusted antihypertensives to address this. Patient is COVID-19 negative as of test date on 05/08/2021. Hemoglobin A1c was 8.8%. Cholesterol panel was elevated across the board with triglycerides at 157, cholesterol 237, LDL 166. After the patient was medically stabilized they were transferred for further rehabilitation. All available medical records have been reviewed. Plan of care was discussed with patient. Interval History: Patient is participating in therapy and making fair progress. Taking rest breaks as needed. +BM, continue Dulcolax. Denies palpitations, dyspnea, cough, N/V, or joint pain. Patient states that she just feels weak all over. Afebrile overnight. Continue therapy. NGTD on Urine cx. Patient stating she wants to go home. Complaining of service concerns. Explained that we need to finish antibiotics and will look to discharge next week. CVA: Continue secondary stroke prevention and therapy. Patient is not having any signs of worsening neurologic function, shoulder-hand syndrome, bowel or bladder dysfunction. 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 LLE neuropathy Diabetes: Continue to monitor glucose and continue meds. This is a new diagnosis and we are adjusting her initial treatment regimen, glucose so far fairly well controlled. Hypertension: Continue medications, hold for hypotension. Goal SBP less than 140. Patient is tolerating losartan dose at increased level. Leukocytosis with likely pneumonia: Work-up for UTI or pneumonia. Urinalysis suggestive of UTI but will await culture and sensitivity results prior to changing antibiotic course. Labs pending today Pneumonia: Continue nebulizers and antibiotics. Monitor for improvement. Labs are pending Dysphagia: Continue modified diet, continue RECEPTIONIST SCHEDULER and advance as able Hypokalemia: Replaced and normalized. Continue to monitor and replace as needed. Volume depletion: Improved renal function. Monitor and give IV fluids as needed. Encouraging p.o. fluids primarily ADL and mobility deficits: Continue therapy as above in order to improve patient's ability to perform ADLs as independently as possible and to mobilize herself with out falls. Decreased safety awareness: Potentially due to CVA, encephalopathy, or early stages of dementia. We will continue to monitor and look for clearing and improvement. Patient will need 24/7 supervision at home, has poor carryover day-to-day and within the same therapy session. All records, vitals, labs and medications were reviewed. No other issues per patient, nursing or therapy. Objective - Exam Narrative Exam: MUSCULOSKELETAL SPECIALTY EXAM CONSTITUTIONAL: Well developed, well nourished, appropriately groomed. RIGHT hand dominant. RESPIRATORY: Clear to auscultation but distant. No increased work of breathing. CARDIOVASCULAR: Regular Rate/ Rhythm, no swelling, edema or tenderness in BUE or BLE. All extremities warm. GI: + bowel sounds, soft, NTTP, nondistended. INTEGUMENTARY: Normal, no lesion, rash, masses or bruising noted in extremities. MUSCULOSKELETAL: BUE and BLE normal without defect, crepitus, subluxation, effusion, arthritic changes or TTP. R 4+/5 L 4- /5 ROM decreased on the left Tone within normal limits NEURO: CN V : Facial sensation intact but slightly impaired on left CN VII : Left facial droop Sensation intact in all extremities without extinction with slight paresthesias on the left. No tremor noted in 4 extremities. Naming and repetition intact. Follows 1 step commands. Aphasia not appreciated Dysarthria possibly present Dysphagia oral phase present Neglect not appreciated currently POSTURE and GAIT: Sitting posture good. Able to ambulate with rolling walker and assistance, steps are slightly choppy with occasional loss of balance. Remains a fall risk PSYCH: Alert, oriented x1, affect appears euthymic to slightly flattened. Insight appears slightly impaired. Seems that the patient is worse in the afternoon which is likely sundowning. We will still defer on diagnosing with dementia as the patient did have encephalopathy and needs to clear, follow-up with neurology as an outpatient. Poor carryover - Constitutional Vitals: Vital Signs - 12hr 05/18/21 05/19/21 22:00 03:48 Temperature 98.3 F Pulse Rate 60 Respiratory 17 Rate Blood Pressure 125/61 O2 Sat by Pulse 98 98 Oximetry - Allied health notes Allied health notes reviewed: nursing, PT, ST, OT, RT FIMS assessment as documented by PT/OT/ST: Locomotion- walk/wheelchair Ambulation Distance 70 - Labs CBC & Chem 7: 05/17/21 07:09 05/17/21 07:09 Labs: Laboratory Results - last 72 hr 05/16/21 05/16/21 05/16/21 07:49 11:53 12:26 WBC 15.6 H RBC 4.87 Hgb 14.9 H Hct 44.5 H MCV 91 MCH 31 MCHC 33 RDW 12.9 L Plt Count 253 Sodium Potassium Chloride Carbon Dioxide Anion Gap BUN Creatinine Estimated GFR BUN/Creatinine Ratio Glucose POC Glucose 144 H 210 H Calcium Urine Color Urine Turbidity Urine pH Ur Specific Dalton Urine Protein Urine Glucose (UA) Urine Ketones Urine Blood Urine Nitrite Urine Bilirubin Urine Urobilinogen Ur Leukocyte Esterase Urine WBC (Auto) Urine RBC (Auto) U Epithel Cells (Auto) Urine Mucus 05/16/21 05/16/21 05/16/21 12:26 15:05 16:11 WBC RBC Hgb Hct MCV MCH MCHC RDW Plt Count Sodium 137 Potassium 3.9 Chloride 101.6 Carbon Dioxide 20 L Anion Gap 19 BUN 18 H Creatinine 0.5 L Estimated GFR > 60 BUN/Creatinine Ratio 36 Glucose 229 H POC Glucose 160 H Calcium 9.4 Urine Color Yellow Urine Turbidity Slightly-cloudy Urine pH 6.0 Ur Specific Dalton 1.020 Urine Protein <15 mg/dl Urine Glucose (UA) 50 Urine Ketones 20 Urine Blood Neg Urine Nitrite Neg Urine Bilirubin Neg Urine Urobilinogen < 2.0 Ur Leukocyte Esterase Sm Urine WBC (Auto) 21.0 H Urine RBC (Auto) 2.0 U Epithel Cells (Auto) 8.0 Urine Mucus 1+ 05/17/21 05/17/21 05/17/21 07:09 07:09 08:04 WBC 11.0 RBC 4.59 Hgb 14.0 Hct 42.1 MCV 92 MCH 31 MCHC 33 RDW 13.0 L Plt Count 233 Sodium 134 L Potassium 3.7 Chloride 98.6 Carbon Dioxide 22 Anion Gap 17 BUN 15 Creatinine 0.4 L Estimated GFR > 60 BUN/Creatinine Ratio 38 Glucose 197 H POC Glucose 194 H Calcium 8.9 Urine Color Urine Turbidity Urine pH Ur Specific Dalton Urine Protein Urine Glucose (UA) Urine Ketones Urine Blood Urine Nitrite Urine Bilirubin Urine Urobilinogen Ur Leukocyte Esterase Urine WBC (Auto) Urine RBC (Auto) U Epithel Cells (Auto) Urine Mucus 05/17/21 05/17/21 05/17/21 12:02 16:06 20:02 WBC RBC Hgb Hct MCV MCH MCHC RDW Plt Count Sodium Potassium Chloride Carbon Dioxide Anion Gap BUN Creatinine Estimated GFR BUN/Creatinine Ratio Glucose POC Glucose 208 H 192 H 165 H Calcium Urine Color Urine Turbidity Urine pH Ur Specific Dalton Urine Protein Urine Glucose (UA) Urine Ketones Urine Blood Urine Nitrite Urine Bilirubin Urine Urobilinogen Ur Leukocyte Esterase Urine WBC (Auto) Urine RBC (Auto) U Epithel Cells (Auto) Urine Mucus 05/18/21 05/18/21 05/18/21 08:12 11:54 16:37 WBC RBC Hgb Hct MCV MCH MCHC RDW Plt Count Sodium Potassium Chloride Carbon Dioxide Anion Gap BUN Creatinine Estimated GFR BUN/Creatinine Ratio Glucose POC Glucose 157 H 229 H 174 H Calcium Urine Color Urine Turbidity Urine pH Ur Specific Dalton Urine Protein Urine Glucose (UA) Urine Ketones Urine Blood Urine Nitrite Urine Bilirubin Urine Urobilinogen Ur Leukocyte Esterase Urine WBC (Auto) Urine RBC (Auto) U Epithel Cells (Auto) Urine Mucus 05/18/21 20:24 WBC RBC Hgb Hct MCV MCH MCHC RDW Plt Count Sodium Potassium Chloride Carbon Dioxide Anion Gap BUN Creatinine Estimated GFR BUN/Creatinine Ratio Glucose POC Glucose 214 H Calcium Urine Color Urine Turbidity Urine pH Ur Specific Dalton Urine Protein Urine Glucose (UA) Urine Ketones Urine Blood Urine Nitrite Urine Bilirubin Urine Urobilinogen Ur Leukocyte Esterase Urine WBC (Auto) Urine RBC (Auto) U Epithel Cells (Auto) Urine Mucus Assessment and Plan CVA: Continue Secondary Stroke Prevention (Antithrombotic, Statin (Goal LDL-C <70), BP control (Goal <140/90), GLU control (Goal A1c <7), and lifestyle modification). Monitor for recurrent stroke or post-stroke recrudescence. Continue neuromotor therapy as above. Family training when available. Monitor for post stroke depression, cognitive deficits, seizure, dysphagia, aphasia, shoulder hand syndrome, sensory deficits, spasticity, bowel/bladder deficits, sleep disturbance, vision deficits and DVT. Prognosis for recovery and Secondary Stroke Prevention discussed. Follow up with Neurology. No driving until cleared by Neurologist. Diabetes: Continue carb controlled diet, sliding scale insulin and metformin. Monitor glucose levels and adjust medications as needed for euglycemia. Diabetes training per nutrition. Hemoglobin A1c 8.8. Hypokalemia: Magnesium within normal limits, potassium improved, monitor. Leukocytosis : Urine drawn after several days of antibiotics, suggestive of UTI. Chest x-ray reviewed and showed right hilar lower lobe opacity. Patient's WBCs elevated to a high point (15.6) and she spiked a low-grade fever (99.9) while on IV antibiotics. Will monitor urine culture and possibly need to change course on antibiotics. Post stroke depression: Continue Celexa and monitor Pneumonia: Continue Rocephin and nebulizer treatments until complete. Monitor for improvement. Afebrile overnight Dysphagia: Continue modified diet, continue RECEPTIONIST SCHEDULER with e-stim/MBS as needed to advance diet safely. Left Facial droop: Continue work with patient to improve, consider e-stim if needed or if there is affecting eating/speech Dizziness: Continue meclizine as needed, monitor for falls, discussed use of call light and do not get out of bed with patient, dizziness seems to have improved but patient remains high fall risk Hypertension: Continue medication. Monitor blood pressure. Adjust medications as needed for normotension. Hold for hypotension. Goal SBP <140. Tolerating losartan at increased dose. ADL dysfunction: OT will work on improving ability to perform ADLs (including assistive devices) to increase independence and decrease caregiver burden and improve functional transfers and mobility training. Difficulty walking: PT will work on gait training and proper use of assistive devices and advance as appropriate to use of stairs and outside ambulation on uneven surfaces. Unsteadiness on feet: PT will work on improving static and dynamic sitting and standing balance as well as proper use of assistive devices to decrease risk of falls. Abnormality of gait: PT will work to improve safety and efficiency of gait through neuromotor training and gait training along with instruction on proper use of assistive devices. Muscle weakness: PT & OT will work on strengthening exercises to improve functional strength including mixture of closed and open kinetic chain exercises. Debility: PT & OT will work on improving overall functional status to improve participation with ADLs, mobility and social involvement. Fatigue: PT & OT will work on improving endurance through aerobic exercises and therapeutic activity while monitoring patients tolerance for activity and vital signs as needed. DVT ppx: Lovenox Pain: Continue physical modalities in therapy and pain medications as needed to achieve functional pain control. Sleep: Monitor and address as needed. Bowel: Monitor and address as needed. Appetite: Monitor and address as needed. Discharge planning: Pending therapy progress and care plan meeting. Will continue discussion with therapy team, SW, patient and family. At this point, looks like the patient will need 24/ supervision for cognitive reasons. We will look to discharge patient at the middle of next week, will see if we can obtain permission to bring the family in for family training towards the end of this week to ensure that they are capable of performing proper oversight for her for safe discharge home. Restrictions/ Precautions: Falls WB status: FWB Functional Hx: ADLs: Independent Cognition: Independent Mobility: No AD but did use 's assistance at times Barriers to Discharge: Decreased mobility and ability to perform self care, balance deficits, weakness, cognitive dysfunction Estimated Length of Stay: 1418 days Discharge Destination: Home with family DME: Patient will need discharge with a shower chair with handles. She will also need a wheelchair as she is unsafe to perform MR ADLs in the home environment with lesser assistive devices including rolling walker, quad cane, hemiwalker which have all been tried in the rehab setting. She tends to lose balance and while standing at countertops performing ADLs such as brushing her teeth she also loses balance. Patient is able to maneuver a wheelchair in the home and is willing to utilize it in the home to improve her ability to perform MR ADLs and to improve her independence. Patient is a high risk for further injury due to fall, secondary CVA or recrudescence, and poor functional recovery due to CVA.
[2021-05-19 08:09] LABS: Hematocrit 39.7 % (30.3-42.9); Hemoglobin 13.1 gm/dl (10.1-14.3); Mean Corpuscular HGB Conc 33 % (30-34); Mean Corpuscular Volume 91 fl (79-97); Platelet Count 233 K/mm3 (140-440); Red Blood Count 4.35 M/mm3 (3.65-5.03); Red Cell Distribution Width 12.8 % (13.2-15.2)
[2021-05-19 08:35] LABS: BUN/Creatinine Ratio 48; Blood Urea Nitrogen 19 mg/dL (7-17); Hemolysis Index 2
[2021-05-19] MEDS: ENOXAPARIN 40 MG/0.4 ML INJ SUB-Q SCH (11:22)
[2021-05-19] MEDS: metFORMIN 500 MG TAB PO SCH ×2 (11:22→19:01)
[2021-05-19] MEDS: ASPIRIN EC 81 MG TAB PO SCH (11:22)
[2021-05-19] MEDS: LOSARTAN 25 MG TAB PO SCH (11:22)
[2021-05-19] MEDS: hydroCHLOROthiazide 12.5 MG CAP PO SCH (11:23)
[2021-05-19] MEDS: CITALOPRAM 10 MG TAB PO SCH (11:23)
[2021-05-19] MEDS: cefTRIAXone/NS 1 GM/50 ML 1 GM/50 ML BAG IV SCH (21:33)
--- NOTE | 2021-05-20 13:23 | Progress Note ---
Subjective Date of service: 05/20/21 Principal diagnosis: CVA Interval history: 76-year-old female with a history of hypertension and prior stroke brought in for evaluation of generalized weakness, left-sided facial droop and unstable gait. Patient had severe headaches over the last several days prior to admission. She was seen by neurology and worked up for possible CVA. CT head showed 2 small deep infarcts in the right ganglia that appear to be chronic with no other acute intracranial abnormalities. MRI brain showed an acute infarct in the right putamen and right mathews radiata. Chest x-ray showed probable right lower lobe pneumonia but follow-up CTA showed a mild dependent atelectasis. Doppler study of the carotids showed less than 50% stenosis bilaterally. Echocardiogram showed 55 to 60% ejection fraction accompanied by mild regurgitation in all valves. Blood pressure tended to fluctuate during her stay and as of late has been elevated greater than 160-170 systolic, have already adjusted antihypertensives to address this. Patient is COVID-19 negative as of test date on 05/08/2021. Hemoglobin A1c was 8.8%. Cholesterol panel was elevated across the board with triglycerides at 157, cholesterol 237, LDL 166. After the patient was medically stabilized they were transferred for further rehabilitation. All available medical records have been reviewed. Plan of care was discussed with patient. Interval History: Patient is participating in therapy and making fair progress. Taking rest breaks as needed. -BM, continue Dulcolax. Denies palpitations, dyspnea, cough, N/V, or joint pain. Afebrile overnight. Continue therapy. NG on Urine cx, final. Patient stating she wants to go home. Complaining of service concerns. Completed family training today. I was able to speak with the and discussed poststroke recovery, secondary stroke prevention as well as the patient's new diagnoses. did state that the patient was showing signs of dementia prior to the CVA. Recommended to him that she follow-up with a neurologist in order to further clarify the diagnosis after she has cleared from her hospital stay. Patient also was apparently not cooperative with medical care in the past and the states that he is working to try and find her another physician and hopefully have her stay on medications this time. Informed the that I would give him 30 days worth of medications and offered him give him 2 months worth if he felt that he needed extra time in order to obtain follow-up. CVA: Continue secondary stroke prevention and therapy. Patient is not having any signs of worsening neurologic function, shoulder-hand syndrome, bowel or bladder dysfunction. 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 LLE neuropathy Diabetes: Continue to monitor glucose and continue meds. This is a new diagn osis and we are adjusting her initial treatment regimen, glucose so far fairly well controlled. Some variability over the last few days, depends on what the patient is eating, will increase metformin dose Hypertension: Continue medications, hold for hypotension. Goal SBP less than 140. Patient is tolerating losartan dose at increased level. Leukocytosis with likely pneumonia: Urine culture was negative for growth, however it was obtained after the patient had been on antibiotics for couple of days. Leukocytosis has improved and was normal few days ago, slightly elevated today. We will recheck CBC with differential in the morning as well as a CRP. Pneumonia: Continue nebulizers and antibiotics. Monitor for improvement. Seems much improved, no more fevers. Dysphagia: Advanced to regular diet diet, continue [employer] for monitoring Hypokalemia: Replaced and normalized. Continue to monitor and replace as needed, remains normal. Volume depletion: Improved renal function. Monitor and give IV fluids as needed. Encouraging p.o. fluids primarily ADL and mobility deficits: Continue therapy as above in order to improve patient's ability to perform ADLs as independently as possible and to mobilize herself with out falls. Decreased safety awareness: Potentially due to CVA, encephalopathy, or early stages of dementia. We will continue to monitor and look for clearing and improvement. Patient will need 24/7 supervision at home, has poor carryover day-to-day and within the same therapy session. After speaking with the , it appears that the patient has had onset of confusion and forgetfulness prior to the CVA. Will need to follow-up with neurology as an outpatient. All records, vitals, labs and medications were reviewed. No other issues per patient, nursing or therapy. Objective - Exam Narrative Exam: MUSCULOSKELETAL SPECIALTY EXAM CONSTITUTIONAL: Well developed, well nourished, appropriately groomed. RIGHT hand dominant. RESPIRATORY: Clear to auscultation but distant. No increased work of breathing. CARDIOVASCULAR: Regular Rate/ Rhythm, no swelling, edema or tenderness in BUE or BLE. All extremities warm. GI: + bowel sounds, soft, NTTP, nondistended. INTEGUMENTARY: Normal, no lesion, rash, masses or bruising noted in extremities. MUSCULOSKELETAL: BUE and BLE normal without defect, crepitus, subluxation, effusion, arthritic changes or TTP. R 4+/5 L 4- /5 ROM decreased on the left but improved Tone within normal limits NEURO: CN V : Facial sensation intact but slightly impaired on left CN VII : Left facial droop Sensation intact in all extremities without extinction with slight paresthesias on the left. No tremor noted in 4 extremities. Naming and repetition intact. Follows 1 step commands. Aphasia not appreciated Dysarthria within normal limits Dysphagia resolved Neglect not appreciated currently POSTURE and GAIT: Sitting posture good. Able to ambulate with rolling walker and assistance, steps are slightly choppy with occasional loss of balance. Remains a fall risk PSYCH: Alert, oriented x1, affect appears euthymic to slightly flattened. Insight appears slightly impaired. Seems that the patient is worse in the afternoon which is likely sundowning. We will still defer on diagnosing with dementia as the patient did have encephalopathy and needs to clear, follow-up with neurology as an outpatient. Poor carryover - Constitutional Vitals: Vital Signs - 12hr 05/20/21 05/20/21 05/20/21 03:36 07:47 07:49 Temperature 97.9 F 98.4 F Pulse Rate 58 L 71 Respiratory 16 18 Rate Blood Pressure 117/59 136/76 O2 Sat by Pulse 98 98 100 Oximetry - Allied health notes Allied health notes reviewed: nursing, PT, ST, OT FIMS assessment as documented by PT/OT/ST: Locomotion- walk/wheelchair Ambulation Distance 70 - Labs CBC & Chem 7: 05/19/21 07:58 05/19/21 07:58 Labs: Laboratory Results - last 72 hr 05/17/21 05/17/21 05/18/21 16:06 20:02 08:12 WBC RBC Hgb Hct MCV MCH MCHC RDW Plt Count Sodium Potassium Chloride Carbon Dioxide Anion Gap BUN Creatinine Estimated GFR BUN/Creatinine Ratio Glucose POC Glucose 192 H 165 H 157 H Calcium 05/18/21 05/18/21 05/18/21 11:54 16:37 20:24 WBC RBC Hgb Hct MCV MCH MCHC RDW Plt Count Sodium Potassium Chloride Carbon Dioxide Anion Gap BUN Creatinine Estimated GFR BUN/Creatinine Ratio Glucose POC Glucose 229 H 174 H 214 H Calcium 05/19/21 05/19/21 05/19/21 07:58 07:58 11:30 WBC 11.3 H RBC 4.35 Hgb 13.1 Hct 39.7 MCV 91 MCH 30 MCHC 33 RDW 12.8 L Plt Count 233 Sodium 137 Potassium 3.9 Chloride 100.9 Carbon Dioxide 25 Anion Gap 15 BUN 19 H Creatinine 0.4 L Estimated GFR > 60 BUN/Creatinine Ratio 48 Glucose 163 H POC Glucose 172 H Calcium 9.0 05/19/21 05/19/21 05/20/21 17:09 20:18 07:46 WBC RBC Hgb Hct MCV MCH MCHC RDW Plt Count Sodium Potassium Chloride Carbon Dioxide Anion Gap BUN Creatinine Estimated GFR BUN/Creatinine Ratio Glucose POC Glucose 183 H 194 H 158 H Calcium Assessment and Plan CVA: Continue Secondary Stroke Prevention (Antithrombotic, Statin (Goal LDL-C <70), BP control (Goal <140/90), GLU control (Goal A1c <7), and lifestyle modification). Monitor for recurrent stroke or post-stroke recrudescence. Continue neuromotor therapy as above. Family training when available. Monitor for post stroke depression, cognitive deficits, seizure, dysphagia, aphasia, shoulder hand syndrome, sensory deficits, spasticity, bowel/bladder deficits, sleep disturbance, vision deficits and DVT. Prognosis for recovery and Secondary Stroke Prevention discussed. Follow up with Neurology. No driving until cleared by Neurologist. Diabetes: Continue carb controlled diet and metformin. Monitor glucose levels and adjust medications as needed for euglycemia. Diabetes training per nutrition. Hemoglobin A1c 8.8. Hypokalemia: Magnesium within normal limits, potassium improved, monitor. Leukocytosis : Urine drawn after several days of antibiotics, suggestive of UTI. Chest x-ray reviewed and showed right hilar lower lobe opacity. Patient's WBCs elevated to a high point (15.6) and she spiked a low-grade fever (99.9) while on IV antibiotics. Will monitor urine culture and possibly need to change course on antibiotics. Post stroke depression: Continue Celexa and monitor Pneumonia: Continue Rocephin and nebulizer treatments until complete. Monitor for improvement. Afebrile overnight Dysphagia: Continue modified diet, continue [employer] with e-stim/MBS as needed to advance diet safely. Left Facial droop: Continue work with patient to improve, consider e-stim if needed or if there is affecting eating/speech Dizziness: Continue meclizine as needed, monitor for falls, discussed use of call light and do not get out of bed with patient, dizziness seems to have improved but patient remains high fall risk Hypertension: Continue medication. Monitor blood pressure. Adjust medications as needed for normotension. Hold for hypotension. Goal SBP <140. Tolerating losartan at increased dose. ADL dysfunction: OT will work on improving ability to perform ADLs (including assistive devices) to increase independence and decrease caregiver burden and improve functional transfers and mobility training. Difficulty walking: PT will work on gait training and proper use of assistive devices and advance as appropriate to use of stairs and outside ambulation on uneven surfaces. Unsteadiness on feet: PT will work on improving static and dynamic sitting and standing balance as well as proper use of assistive devices to decrease risk of falls. Abnormality of gait: PT will work to improve safety and efficiency of gait through neuromotor training and gait training along with instruction on proper use of assistive devices. Muscle weakness: PT & OT will work on strengthening exercises to improve functional strength including mixture of closed and open kinetic chain exercises. Debility: PT & OT will work on improving overall functional status to improve participation with ADLs, mobility and social involvement. Fatigue: PT & OT will work on improving endurance through aerobic exercises and therapeutic activity while monitoring patients tolerance for activity and vital signs as needed. DVT ppx: Lovenox Pain: Continue physical modalities in therapy and pain medications as needed to achieve functional pain control. Sleep: Monitor and address as needed. Bowel: Monitor and address as needed. Appetite: Monitor and address as needed. Discharge planning: Pending therapy progress and care plan meeting. Will continue discussion with therapy team, SW, patient and family. At this point, looks like the patient will need 24/ supervision for cognitive reasons. Patient will discharge next Sunday with the family. Family was present today for family training and feel that they can provide the level of care that she will need at home. We will refer the patient for outpatient therapy Restrictions/ Precautions: Falls WB status: FWB Functional Hx: ADLs: Independent Cognition: Independent Mobility: No AD but did use 's assistance at times Barriers to Discharge: Decreased mobility and ability to perform self care, balance deficits, weakness, cognitive dysfunction Estimated Length of Stay: 1418 days Discharge Destination: Home with family DME: Patient will need discharge with a shower chair with handles. She will also need a wheelchair as she is unsafe to perform MR ADLs in the home environment with lesser assistive devices including rolling walker, quad cane, hemiwalker which have all been tried in the rehab setting. She tends to lose balance and while standing at countertops performing ADLs such as brushing her teeth she also loses balance. Patient is able to maneuver a wheelchair in the home and is willing to utilize it in the home to improve her ability to perform MR ADLs and to improve her independence. Patient is a high risk for further injury due to fall, secondary CVA or recrudescence, and poor functional recovery due to CVA.
[2021-05-20] MEDS: CITALOPRAM 10 MG TAB PO SCH (13:54)
[2021-05-20] MEDS: ENOXAPARIN 40 MG/0.4 ML INJ SUB-Q SCH (13:55)
[2021-05-20] MEDS: LOSARTAN 25 MG TAB PO SCH (13:55)
[2021-05-20] MEDS: hydroCHLOROthiazide 12.5 MG CAP PO SCH (13:55)
[2021-05-20] MEDS: ASPIRIN EC 81 MG TAB PO SCH (13:55)
[2021-05-20] MEDS: HYDROcodone/ACETAMINOPHEN 5-325 MG TAB PO PRN (13:55)
[2021-05-20] MEDS: metFORMIN 850 MG TAB PO SCH (17:45)
[2021-05-20] MEDS: cefTRIAXone/NS 1 GM/50 ML 1 GM/50 ML BAG IV SCH (21:48)
[2021-05-21 07:03] LABS: Basophils % (Auto) 0.5 % (0.0-1.8); Eosinophils # (Auto) 0.4 K/mm3 (0.0-0.4); Eosinophils % (Auto) 4.3 % (0.0-4.3); Hematocrit 42.2 % (30.3-42.9); Hemoglobin 13.7 gm/dl (10.1-14.3); Lymphocytes # (Auto) 1.6 K/mm3 (1.2-5.4); Lymphocytes % (Auto) 18.1 % (13.4-35.0); Mean Corpuscular HGB Conc 33 % (30-34); Mean Corpuscular Volume 91 fl (79-97); Monocytes # (Auto) 0.5 K/mm3 (0.0-0.8); Monocytes % (Auto) 5.5 % (0.0-7.3); Platelet Count 255 K/mm3 (140-440); Red Blood Count 4.66 M/mm3 (3.65-5.03); Red Cell Distribution Width 12.9 % (13.2-15.2)
[2021-05-21] MEDS: hydroCHLOROthiazide 12.5 MG CAP PO SCH (11:56)
[2021-05-21] MEDS: LOSARTAN 25 MG TAB PO SCH (11:56)
[2021-05-21] MEDS: ASPIRIN EC 81 MG TAB PO SCH (11:56)
[2021-05-21] MEDS: metFORMIN 850 MG TAB PO SCH ×2 (11:56→16:55)
[2021-05-21] MEDS: ENOXAPARIN 40 MG/0.4 ML INJ SUB-Q SCH (11:56)
[2021-05-21] MEDS: CITALOPRAM 10 MG TAB PO SCH (11:56)
[2021-05-21] MEDS: metFORMIN 500 MG TAB PO SCH (20:52)
[2021-05-21] MEDS: HYDROcodone/ACETAMINOPHEN 5-325 MG TAB PO PRN (21:32)
[2021-05-22] MEDS: hydroCHLOROthiazide 12.5 MG CAP PO SCH (12:02)
[2021-05-22] MEDS: LOSARTAN 25 MG TAB PO SCH (12:02)
[2021-05-22] MEDS: metFORMIN 850 MG TAB PO SCH ×2 (12:02→18:39)
[2021-05-22] MEDS: ASPIRIN EC 81 MG TAB PO SCH (12:02)
[2021-05-22] MEDS: CITALOPRAM 10 MG TAB PO SCH (12:03)
[2021-05-22] MEDS: ENOXAPARIN 40 MG/0.4 ML INJ SUB-Q SCH (12:03)
[2021-05-22] MEDS: HYDROcodone/ACETAMINOPHEN 5-325 MG TAB PO PRN (21:53)
--- NOTE | 2021-05-23 07:33 | Progress Note ---
Subjective Date of service: 05/23/21 Principal diagnosis: CVA Interval history: 76-year-old female with a history of hypertension and prior stroke brought in for evaluation of generalized weakness, left-sided facial droop and unstable gait. Patient had severe headaches over the last several days prior to admission. She was seen by neurology and worked up for possible CVA. CT head showed 2 small deep infarcts in the right ganglia that appear to be chronic with no other acute intracranial abnormalities. MRI brain showed an acute infarct in the right putamen and right mathews radiata. Chest x-ray showed probable right lower lobe pneumonia but follow-up CTA showed a mild dependent atelectasis. Doppler study of the carotids showed less than 50% stenosis bilaterally. Echocardiogram showed 55 to 60% ejection fraction accompanied by mild regurgitation in all valves. Blood pressure tended to fluctuate during her stay and as of late has been elevated greater than 160-170 systolic, have already adjusted antihypertensives to address this. Patient is COVID-19 negative as of test date on 05/08/2021. Hemoglobin A1c was 8.8%. Cholesterol panel was elevated across the board with triglycerides at 157, cholesterol 237, LDL 166. After the patient was medically stabilized they were transferred for further rehabilitation. All available medical records have been reviewed. Plan of care was discussed with patient. Interval History: Patient is participating in therapy and making fair progress. Taking rest breaks as needed. -BM, continue Dulcolax. Denies palpitations, dyspnea, cough, N/V, or joint pain. Continue therapy. CVA: Continue secondary stroke prevention and therapy. Patient is not having any signs of worsening neurologic function, shoulder-hand syndrome, bowel or bladder dysfunction. 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 LLE neuropathy Diabetes: Continue to monitor glucose and continue meds. This is a new diagnosis and we are adjusting her initial treatment regimen, glucose so far fairly well controlled. Some variability over the last few days, depends on what the patient is eating, will increase metformin dose, will need to be assessed as outpatient once she returns to normal eating pattern Hypertension: Continue medications, hold for hypotension. Goal SBP less than 140. Patient is tolerating losartan dose at increased level. Leukocytosis with likely pneumonia: Urine culture was negative for growth, albright nilo it was obtained after the patient had been on antibiotics for couple of days. Leukocytosis normalized, CRP wnl. Pneumonia: Completed nebulizers and antibiotics. Monitor for improvement. Seems much improved Dysphagia: Advanced to regular diet diet, continue [employer] for monitoring Hypokalemia: Replaced and normalized. Continue to monitor and replace as needed, remains normal. Volume depletion: Improved renal function. Monitor and give IV fluids as needed. Encouraging p.o. fluids primarily ADL and mobility deficits: Continue therapy as above in order to improve patient's ability to perform ADLs as independently as possible and to mobilize herself with out falls. Decreased safety awareness: Potentially due to CVA, encephalopathy, or early stages of dementia. We will continue to monitor and look for clearing and improvement. Patient will need 24/7 supervision at home, has poor carryover day-to-day and within the same therapy session. After speaking with the , it appears that the patient has had onset of confusion and forgetfulness prior to the CVA. Will need to follow-up with neurology as an outpatient. All records, vitals, labs and medications were reviewed. No other issues per patient, nursing or therapy. Objective - Exam Narrative Exam: MUSCULOSKELETAL SPECIALTY EXAM CONSTITUTIONAL: Well developed, well nourished, appropriately groomed. RIGHT hand dominant. RESPIRATORY: Clear to auscultation but distant. No increased work of breathing. CARDIOVASCULAR: Regular Rate/ Rhythm, no swelling, edema or tenderness in BUE or BLE. All extremities warm. GI: + bowel sounds, soft, NTTP, nondistended. INTEGUMENTARY: Normal, no lesion, rash, masses or bruising noted in extremities. MUSCULOSKELETAL: BUE and BLE normal without defect, crepitus, subluxation, effusion, arthritic ch anges or TTP. R 4+/5 L 4- /5 ROM decreased on the left but improved Tone within normal limits NEURO: CN V : Facial sensation intact but slightly impaired on left CN VII : Left facial droop Sensation intact in all extremities without extinction with slight paresthesias on the left. No tremor noted in 4 extremities. Follows 1 step commands. Aphasia not appreciated Dysarthria within normal limits Dysphagia resolved Neglect not appreciated currently POSTURE and GAIT: Sitting posture good. Able to ambulate with rolling walker and assistance, steps are slightly choppy with occasional loss of balance. Remains a fall risk PSYCH: Alert, oriented x2, affect appears euthymic to slightly flattened. Insight appears slightly impaired. Seems that the patient is worse in the afternoon which is likely sundowning. We will still defer on diagnosing with dementia as the patient did have encephalopathy and needs to clear, follow-up with neurology as an outpatient. Poor carryover - Constitutional Vitals: Vital Signs - 12hr 05/22/21 05/22/21 20:26 21:02 Temperature 99.8 F H Pulse Rate 65 Respiratory 18 Rate Blood Pressure 122/56 O2 Sat by Pulse 96 97 Oximetry - Allied health notes FIMS assessment as documented by PT/OT/ST: Locomotion- walk/wheelchair Ambulation Distance 70 - Labs CBC & Chem 7: 05/21/21 05:53 05/19/21 07:58 Labs: Laboratory Results - last 72 hr 05/20/21 05/20/21 05/21/21 07:46 16:54 05:53 WBC 9.0 RBC 4.66 Hgb 13.7 Hct 42.2 MCV 91 MCH 29 MCHC 33 RDW 12.9 L Plt Count 255 Lymph % (Auto) 18.1 Richardson % (Auto) 5.5 Eos % (Auto) 4.3 Baso % (Auto) 0.5 Lymph # (Auto) 1.6 Richardson # (Auto) 0.5 Eos # (Auto) 0.4 Baso # (Auto) 0.0 Seg Neutrophils % 71.6 H Seg Neutrophils # 6.4 POC Glucose 158 H 224 H C-Reactive Protein 05/21/21 05:53 WBC RBC Hgb Hct MCV MCH MCHC RDW Plt Count Lymph % (Auto) Richardson % (Auto) Eos % (Auto) Baso % (Auto) Lymph # (Auto) Richardson # (Auto) Eos # (Auto) Baso # (Auto) Seg Neutrophils % Seg Neutrophils # POC Glucose C-Reactive Protein 0.60 Assessment and Plan CVA: Continue Secondary Stroke Prevention (Antithrombotic, Statin (Goal LDL-C <70), BP control (Goal <140/90), GLU control (Goal A1c <7), and lifestyle modification). Monitor for recurrent stroke or post-stroke recrudescence. Continue neuromotor therapy as above. Family training when available. Monitor for post stroke depression, cognitive deficits, seizure, dysphagia, aphasia, shoulder hand syndrome, sensory deficits, spasticity, bowel/bladder deficits, sleep disturbance, vision deficits and DVT. Prognosis for recovery and Secondary Stroke Prevention discussed. Follow up with Neurology. No driving until cleared by Neurologist. Diabetes: Continue carb controlled diet and metformin. Monitor glucose levels and adjust medications as needed for euglycemia. Diabetes training per nutriti on. Hemoglobin A1c 8.8. Metformin and creased and patient tolerating dose Hypokalemia: Magnesium within normal limits, potassium improved, monitor. Leukocytosis : Urine drawn after several days of antibiotics, suggestive of UTI. Chest x-ray reviewed and showed right hilar lower lobe opacity. Patient's WBCs elevated to a high point (15.6) and she spiked a low-grade fever (99.9) while on IV antibiotics. Urine culture did not grow bacteria. Patient has completed antibiotics course for pneumonia seems to be better. Leukocytosis resolved, CRP within normal limits Post stroke depression: Continue Celexa and monitor Pneumonia: Completed course of Rocephin and nebulizer treatments. Monitor Dysphagia: Diet advanced to regular/thins. Left Facial droop: Continue work with patient to improve, consider e-stim if needed or if there is affecting eating/speech Dizziness: Continue meclizine as needed, monitor for falls, discussed use of call light and do not get out of bed with patient, dizziness seems to have improved but patient remains high fall risk Hypertension: Continue medication. Monitor blood pressure. Adjust medications as needed for normotension. Hold for hypotension. Goal SBP <140. Tolerating losartan at increased dose and blood pressure is in target range. ADL dysfunction: OT will work on improving ability to perform ADLs (including assistive devices) to increase independence and decrease caregiver burden and improve functional transfers and mobility training. Difficulty walking: PT will work on gait training and proper use of assistive devices and advance as appropriate to use of stairs and outside ambulation on uneven surfaces. Unsteadiness on feet: PT will work on improving static and dynamic sitting and standing balance as well as proper use of assistive devices to decrease risk of falls. Abnormality of gait: PT will work to improve safety and efficiency of gait through neuromotor training and gait training along with instruction on proper use of assistive devices. Muscle weakness: PT & OT will work on strengthening exercises to improve functional strength including mixture of closed and open kinetic chain exercises. Debility: PT & OT will work on improving overall functional status to improve participation with ADLs, mobility and social involvement. Fatigue: PT & OT will work on improving endurance through aerobic exercises and therapeutic activity while monitoring patients tolerance for activity and vital signs as needed. DVT ppx: Lovenox Pain: Continue physical modalities in therapy and pain medications as needed to achieve functional pain control. Sleep: Monitor and address as needed. Bowel: Monitor and address as needed. Appetite: Monitor and address as needed. Discharge planning: Pending therapy progress and care plan meeting. Will continue discussion with therapy team, SW, patient and family. At this point, looks like the patient will need 24/ supervision for cognitive reasons. Patient will discharge next Sunday with the family. Family complete family training and feel that they can provide the level of care that she will need at home. Discussed secondary stroke prevention and prognosis for recovery with the . He states he is in the process of finding a Sinhala speaking PCP for th e patient. Also states that she has been resistant to medical care in the past and feels that she may do the same this time. We will refer the patient for outpatient therapy Restrictions/ Precautions: Falls WB status: FWB Functional Hx: ADLs: Independent Cognition: Independent Mobility: No AD but did use 's assistance at times Barriers to Discharge: Decreased mobility and ability to perform self care, balance deficits, weakness, cognitive dysfunction Estimated Length of Stay: 1418 days Discharge Destination: Home with family DME: Patient will need discharge with a shower chair with handles. She will also need a wheelchair as she is unsafe to perform MR ADLs in the home environment with lesser assistive devices including rolling walker, quad cane, hemiwalker which have all been tried in the rehab setting. She tends to lose balance and while standing at countertops performing ADLs such as brushing her teeth she also loses balance. Patient is able to maneuver a wheelchair in the home and is willing to utilize it in the home to improve her ability to perform MR ADLs and to improve her independence. Patient is a high risk for further injury due to fall, secondary CVA or recrudescence, and poor functional recovery due to CVA.
[2021-05-23] MEDS: CITALOPRAM 10 MG TAB PO SCH (12:21)
[2021-05-23] MEDS: metFORMIN 850 MG TAB PO SCH ×2 (12:21→18:38)
[2021-05-23] MEDS: hydroCHLOROthiazide 12.5 MG CAP PO SCH (12:21)
[2021-05-23] MEDS: ASPIRIN EC 81 MG TAB PO SCH (12:21)
[2021-05-23] MEDS: LOSARTAN 25 MG TAB PO SCH (12:21)
[2021-05-23] MEDS: ENOXAPARIN 40 MG/0.4 ML INJ SUB-Q SCH (12:22)
[2021-05-24 05:21] VITALS: BP 108/50
--- NOTE | 2021-05-24 07:21 | Discharge Summary ---
Providers - Providers Date of Admission: 05/12/21 14:42 Date of discharge: 05/24/21 Attending physician: ROBY LAMAS III, MD 05/12/21 07:26 Occupational Therapy Evaluate and Treat [CONS] Routine Comment: Reason For Exam: ADL dysfunction Physical Therapy Evaluation and Treat [CONS] Routine Comment: Reason For Exam: Mobility Dysfunction 05/12/21 07:32 Consult to Case Management [CONS] Routine Services Needed at Discharge: Home Health Services Notified:: cm notified Consult to Dietitian/Nutrition [CONS] Routine Physician Instructions: Reason For Exam: Reason for Consult: Diet education Speech Therapy Evaluation and Treat [CONS] Routine Reason For Exam: CVA, Assess/Treat Speech/Cog/Swallow Primary care physician: BACCARAT DEALER Hospitalization Reason for admission: CVA Condition: Good Hospital course: 76-year-old female with a history of hypertension and prior stroke brought in for evaluation of generalized weakness, left-sided facial droop and unstable gait. Patient had severe headaches over the last several days prior to admission. She was seen by neurology and worked up for possible CVA. CT head showed 2 small deep infarcts in the right ganglia that appear to be chronic with no other acute intracranial abnormalities. MRI brain showed an acute infarct in the right putamen and right mathews radiata. Chest x-ray showed probable right lower lobe pneumonia but follow-up CTA showed a mild dependent atelectasis. Doppler study of the carotids showed less than 50% stenosis bilaterally. Echocardiogram showed 55 to 60% ejection fraction accompanied by mild regurgitation in all valves. Blood pressure tended to fluctuate during her stay and as of late has been elevated greater than 160-170 systolic, have already adjusted antihypertensives to address this. Patient is COVID-19 negative as of test date on 05/08/2021. Hemoglobin A1c was 8.8%. Cholesterol panel was elevated across the board with triglycerides at 157, cholesterol 237, LDL 166. After the patient was medically stabilized they were transferred for further rehabilitation. All available medical records have been reviewed. Plan of care was discussed with patient. CVA: Continue Secondary Stroke Prevention (Antithrombotic, Statin (Goal LDL-C <70), BP control (Goal <140/90), GLU control (Goal A1c <7), and lifestyle modification). Monitor for recurrent stroke or post-stroke recrudescence. Continue neuromotor therapy as above. Family training performed. Monitor for post stroke depression, cognitive deficits, seizure, dysphagia, aphasia, shoulder hand syndrome, sensory deficits, spasticity, bowel/bladder deficits, sleep disturbance, vision deficits and DVT. Prognosis for recovery and Secondary Stroke Prevention discussed. Follow up with Neurology. No driving until cleared by Neurologist. Diabetes: Continue carb controlled diet and metformin. Monitor glucose levels and adjust medications as needed for euglycemia. Diabetes training per nutrition. Hemoglobin A1c 8.8. Metformin increased and patient tolerating dose. Will need to follow-up with primary care physician and possibly add more medications if glucose levels are not controlled with diet and Metformin. Hypokalemia: Magnesium within normal limits, potassium improved, monitor. Leukocytosis : Urine drawn after several days of antibiotics, suggestive of UTI. Chest x-ray reviewed and showed right hilar lower lobe opacity. Patient's WBCs elevated to a high point (15.6) and she spiked a low-grade fever (99.9) while on IV antibiotics. Urine culture did not grow bacteria. Patient has completed antibiotics course for pneumonia seems to be better. Leukocytosis resolved, CRP within normal limits Post stroke depression: Continue Celexa and monitor Pneumonia: Completed course of Rocephin and nebulizer treatments. Resolved, monitor Dysphagia: Diet advanced to regular/thins. Resolved Left Facial droop: Continue work with patient to improve, consider e-stim if needed or if there is affecting eating/speech Dizziness: Continue meclizine as needed, monitor for falls, discussed use of call light and do not get out of bed with patient, dizziness seems to have improved but patient remains high fall risk Hypertension: Continue medication. Monitor blood pressure. Adjust medications as needed for normotension. Hold for hypotension. Goal SBP <140. Tolerating losartan at increased dose and blood pressure is in target range. ADL dysfunction: OT will work on improving ability to perform ADLs (including assistive devices) to increase independence and decrease caregiver burden and improve functional transfers and mobility training. Difficulty walking: PT will work on gait training and proper use of assistive devices and advance as appropriate to use of stairs and outside ambulation on uneven surfaces. Unsteadiness on feet: PT will work on improving static and dynamic sitting and s tanding balance as well as proper use of assistive devices to decrease risk of falls. Disposition: 01 HOME / SELF CARE / HOMELESS Final Discharge Diagnosis (Prints w/discharge instructions): CVA, Diabetes, Hypertension, ADL and mobility deficits Time spent for discharge: >35mins Core Measure Documentation - Palliative Care Palliative Care/ Comfort Measures: Not Applicable - Core Measures Any of the following diagnoses?: stroke - Stroke Discharge Requirements Statin for LDL = or >70 mg/dl on DC: Yes Anticoag for atrial fib/atrial flutter: Not Applicable Antithrombotic for ischemic stroke: Yes Exam - Physical Exam Narrative exam: MUSCULOSKELETAL SPECIALTY EXAM CONSTITUTIONAL: Well developed, well nourished, appropriately groomed. RIGHT hand dominant. RESPIRATORY: Clear to auscultation but distant. No increased work of breathing. CARDIOVASCULAR: Regular Rate/ Rhythm, no swelling, edema or tenderness in BUE or BLE. All extremities warm. GI: + bowel sounds, soft, NTTP, nondistended. INTEGUMENTARY: Normal, no lesion, rash, masses or bruising noted in extremities. MUSCULOSKELETAL: BUE and BLE normal without defect, crepitus, subluxation, effusion, arthritic changes or TTP. R 4+/5 L 4- /5 ROM decreased on the left but improved Tone within normal limits NEURO: CN V : Facial sensation intact but slightly impaired on left CN VII : Left facial droop Sensation intact in all extremities without extinction with slight paresthesias on the left. No tremor noted in 4 extremities. Follows 1 step commands. Aphasia not appreciated Dysarthria within normal limits Dysphagia resolved Neglect not appreciated currently POSTURE and GAIT: Sitting posture good. Able to ambulate with rolling walker and assistance, steps are slightly choppy with occasional loss of balance. Remains a fall risk PSYCH: Alert, oriented x2, affect appears euthymic to slightly flattened. Insight appears slightly impaired. Seems that the patient is worse in the afternoon which is likely sundowning. We will still defer on diagnosing with dementia as the patient did have encephalopathy and needs to clear, follow-up with neurology as an outpatient. Poor carryover - Constitutional Vitals: Temp Pulse Resp BP Pulse Ox 97.7 F 56 L 18 108/50 96 05/24/21 03:40 05/24/21 03:40 05/24/21 03:40 05/24/21 03:40 05/24/21 03:40 Plan Activity: no driving until cleared by PCP, up only with assistance, fall precautions Diet: low cholesterol, low salt, diabetic Special Instructions: record daily BP diary, record blood sugar diary, physical therapy, occupational therapy, other (LITIGATION SPECIALIST) Durable Medical Equipment Needed Upon Discharge: Wheelchair, Bedside Commode, other (Shower chair) Care Plan Goals: Spoke to the regarding PCP and he states he is working to find a Faroese speaking physician that has been referred to him by their social support community. Patient does have a history of noncompliance with medical treatment per the . I emphasized the importance of ensuring that she follow-up and continue taking medications to control her blood pressure, blood glucose, cholesterol in order to reduce the risk of secondary CVA. Also spoke with him about utilization of aspirin and its effects on secondary stroke prevention. He will also work to find a neurologist again preferably Faroese speaking. Patient will need to check blood pressure on a daily basis and also will need to check blood glucose at least once, preferably twice daily until stabilized and she follows up with primary care. If blood glucose is not controlled with diet and Metformin, PCP may need to start alternative medications. Patient's eating habits in the hospital have been variable. Handwritten prescription provided for glucometer, lancets, test strips and blood pressure cuff. Any brand covered by insurance is acceptable. Would refer the patient to Dr. William Acosta if they cannot find anyone else in a relatively quick period of time for follow-up. Follow up with: PRIMARY CAREMD [Primary Care Provider] - 7 Days WILLIAM ACOSTA MD [Staff Physician] - 14 Days (CVA, HTN, new onset DM. No PCP. is looking for new PCP. Please call physician to make appointment if PCP can not be found.) Prescriptions: AtorvaSTATin [Lipitor] 80 mg PO QHS #60 tablet Citalopram [celeXA] 10 mg PO QDAY #30 tablet Losartan [Cozaar] 50 mg PO QDAY #60 tablet metFORMIN [Glucophage] 850 mg PO BIDDIAB #60 tablet Aspirin EC [Halfprin EC] 81 mg PO QDAY #30 tablet hydroCHLOROthiazide [HCTZ] 12.5 mg PO QDAY #30 capsule
[2021-05-24] MEDS: HYDROcodone/ACETAMINOPHEN 5-325 MG TAB PO PRN (09:27)
[2021-05-24] MEDS: hydroCHLOROthiazide 12.5 MG CAP PO SCH (09:27)
[2021-05-24] MEDS: metFORMIN 850 MG TAB PO SCH (09:27)
[2021-05-24] MEDS: ENOXAPARIN 40 MG/0.4 ML INJ SUB-Q SCH (09:27)
[2021-05-24] MEDS: CITALOPRAM 10 MG TAB PO SCH (09:27)
[2021-05-24] MEDS: LOSARTAN 25 MG TAB PO SCH (09:27)
[2021-05-24] MEDS: ASPIRIN EC 81 MG TAB PO SCH (09:27)
== END 2021-05-24 12:45 | disposition home or self-care (01) | DRG 947 ==
LOC: 4A 17:50 → UNDOADMIN 17:50 → 3A 05-12 14:42 → 4A 05-13 11:44
PROVIDERS: ADMIT Physical Medicine & Rehabilitation; ATTEND Physical Medicine & Rehabilitation
DX: R53.81 Other malaise (principal); I63.9 Cerebral infarction, unspecified; J18.9 Pneumonia, unspecified organism; E11.9 Type 2 diabetes mellitus without complications; I10 Essential (primary) hypertension; E87.6 Hypokalemia; Z88.8 Allergy status to other drugs, medicaments and biological substances; R26.81 Unsteadiness on feet; R13.10 Dysphagia, unspecified; Z79.82 Long term (current) use of aspirin; Z79.899 Other long term (current) drug therapy; Z79.84 Long term (current) use of oral hypoglycemic drugs
CPT/HCPCS: 36415; 71046; 80048; 80053; 81001; 82962; 83735; 85025; 85027; 86140; 87086; 94640; 94760; 97129; 97130; G0378; Q0162; J0696; J1650; J7030

== ENCOUNTER 2021-08-19 18:58 | Emergency (ER) | payer MEDICARE, OTHER ==
[2021-08-19 19:50] VITALS: BP 136/83
--- NOTE | 2021-08-19 19:52 | Emergency Department Report ---
ED Fall HPI - General Chief Complaint: Fall Stated Complaint: FELL HIT HEAD Time Seen by Provider: 08/19/21 19:46 Source: patient, family, old records reviewed Mode of arrival: Wheelchair Limitations: No Limitations - History of Present Illness Initial Comments: Patient is a 76-year-old female who presents emergency room for a fall and hitting her head. Patient states that happened at approximately 5 PM. Patient states she has a slight headache. Patient denies loss of consciousness. Patient states she lost her balance and slipped and hit her head on the edge of the door. Patient states that she had a stroke in April. Patient states she is only taking aspirin. Patient denies Coumadin or any other blood thinners. Patient states the pain is a 3 out of 10 in the forehead region. Patient denies other injuries. Patient denies any bleeding. Patient denies recent travel. Patient denies recent international travel. Patient denies exposure to the novel coronavirus. Patient denies sick contacts. Patient denies fever and chills. Patient denies cough. Patient denies diarrhea. Patient denies coming in contact with anybody with symptoms of the novel coronavirus. Patient brought her med list. Patient has a history of diabetes, depression, hyperlipidemia and CVA and hypertension. Patient is currently taking aspirin 81 mg daily, losartan, citalopram, metformin, atorvastatin. Complaint: fall -: Sudden Fall From: standing When Fall Occurred: 1 hour [employer] Fall Witnessed: yes, by family Place Fall Occurred: home Loss of Consciousness: none Prolonged Down Time?: no Symptoms Prior to Fall: none Context: tripped/slipped Associated Symptoms: headache - Related Data Previous Rx's Medication Instructions Recorded Last Taken Type Aspirin EC [Halfprin EC] 81 mg PO QDAY #30 tablet 05/24/21 Unknown Rx AtorvaSTATin [Lipitor] 80 mg PO QHS #60 tablet 05/24/21 Unknown Rx Citalopram [celeXA] 10 mg PO QDAY #30 tablet 05/24/21 Unknown Rx Losartan [Cozaar] 50 mg PO QDAY #60 tablet 05/24/21 Unknown Rx hydroCHLOROthiazide [HCTZ] 12.5 mg PO QDAY #30 capsule 05/24/21 Unknown Rx metFORMIN [Glucophage] 850 mg PO BIDDIAB #60 tablet 05/24/21 Unknown Rx Allergies Allergy/AdvReac Type Severity Reaction Status Date / Time hydralazine AdvReac Intermediate Difficulty Verified 05/09/21 00:28 Breathing, chest heaviness ED Review of Systems ROS: Stated complaint: FELL HIT HEAD Other details as noted in HPI Constitutional: denies: chills, fever Eyes: denies: eye pain, eye discharge, vision change ENT: denies: ear pain, throat pain Respiratory: denies: cough, shortness of breath, wheezing Cardiovascular: denies: chest pain, palpitations Endocrine: no symptoms reported Gastrointestinal: denies: abdominal pain, nausea, diarrhea Genitourinary: denies: urgency, dysuria, discharge Musculoskeletal: denies: back pain, joint swelling, arthralgia Skin: denies: rash, lesions Neurological: as per HPI, headache. denies: weakness, paresthesias Psychiatric: denies: anxiety, depression Hematological/Lymphatic: denies: easy bleeding, easy bruising ED Past Medical Hx - Past Medical History Previous Medical History?: Yes Hx Hypertension: Yes Hx CVA: (Current diagnosis of CVA 05-08-2021) Hx Congestive Heart Failure: No Hx Diabetes: Yes Hx Asthma: No Hx COPD: No - Surgical History Past Surgical History?: No - Family History Family history: no significant - Social History Smoking Status: Never Smoker Substance Use Type: None - Medications Home Medications: Home Medications Medication Instructions Recorded Confirmed Last Taken Type Aspirin EC [Halfprin EC] 81 mg PO QDAY #30 tablet 05/24/21 Unknown Rx AtorvaSTATin [Lipitor] 80 mg PO QHS #60 tablet 05/24/21 Unknown Rx Citalopram [celeXA] 10 mg PO QDAY #30 tablet 05/24/21 Unknown Rx Losartan [Cozaar] 50 mg PO QDAY #60 tablet 05/24/21 Unknown Rx hydroCHLOROthiazide [HCTZ] 12.5 mg PO QDAY #30 capsule 05/24/21 Unknown Rx metFORMIN [Glucophage] 850 mg PO BIDDIAB #60 tablet 05/24/21 Unknown Rx ED Physical Exam - General Limitations: No Limitations General appearance: alert, in no apparent distress - Head Head exam: Present: other (Scalp hematoma noted in the left frontal region.) - Eye Eye exam: Present: normal appearance, PERRL Pupils: Present: normal accommodation - ENT ENT exam: Present: mucous membranes moist - Neck Neck exam: Present: normal inspection - Respiratory Respiratory exam: Present: normal lung sounds bilaterally. Absent: respiratory distress - Cardiovascular Cardiovascular Exam: Present: regular rate, normal rhythm. Absent: systolic murmur, diastolic murmur, rubs, gallop - GI/Abdominal GI/Abdominal exam: Present: soft, normal bowel sounds. Absent: distended, tenderness, guarding - Extremities Exam Extremities exam: Present: normal inspection - Back Exam Back exam: Present: normal inspection - Neurological Exam Neurological exam: Present: alert, oriented X3 - Psychiatric Psychiatric exam: Present: normal affect, normal mood - Skin Skin exam: Present: warm, dry, intact, normal color. Absent: rash ED Course Vital Signs 08/19/21 08/19/21 19:13 19:14 Temperature 97.9 F 97.9 F Pulse Rate 82 Respiratory 18 Rate Blood Pressure 136/83 O2 Sat by Pulse 95 Oximetry - Reevaluation(s) Reevaluation #1: I discussed all results and clinical findings with patient. I discussed plan of care with patient. Patient agrees with plan of care. Patient is stable for discharge. Patient will be discharged home. Patient given discharge instructions. Patient voiced understanding of discharge instructions. 08/19/21 21:14 ED Medical Decision Making - Radiology Data Radiology results: report reviewed, image reviewed CT head/brain wo con INDICATION: fall with head injury. TECHNIQUE: Routine CT head without contrast. All CT scans at this location are performed using CT dose reduction for ALARA by means of automated exposure control. COMPARISON: Brain MRI on 05/09/2021 FINDINGS: BRAIN / INTRACRANIAL CONTENTS: No acute hemorrhage, brain edema, mass effect, or hydrocephalus. Normal meyer-white differentiation. Small chronic infarct in the right gangliocapsular region. Stable mild bilateral tree. CALVARIUM/SKULL BASE/CRANIOCERVICAL JUNCTION: No evidence of fracture. ORBITS: No significant abnormality of visualized orbits. SINUSES / MASTOIDS: Mild mucosal thickening in the left maxillary sinus. ADDITIONAL FINDINGS: None. IMPRESSION: 1. No acute post-traumatic intracranial abnormality. CT CERVICAL SPINE WITHOUT CONTRAST INDICATION: fall with head injury. TECHNIQUE: Axial CT images of the spine were obtained. Sagittal and coronal reformatted images were produced. All CT scans at this location are performed using CT dose reduction for ALARA by means of automated exposure control. COMPARISON: None available. FINDINGS: ACUTE FRACTURE(S) OR SUBLUXATION: None. SPINAL DEGENERATIVE CHANGES: There is mild DJD in the atlantodental articulation. There is mild degenerative disc disease at C5-6 and C6-7 with associated neural foraminal narrowing at those levels. PARASPINAL SOFT TISSUES: No soft tissue swelling or other acute abnormalities. ADDITIONAL FINDINGS: No significant additional findings. IMPRESSION: 1. No acute fracture or subluxation in the spine in neutral position. - Medical Decision Making Patient is a 76-year-old female that presents emergency room with a fall and head injury. Patient was brought in by her . Patient states she has a headache. Patient has a frontal hematoma. Patient had a recent stroke. Patient slipped and fell trying to walk to the kitchen at home. Patient denied loss of consciousness. Patient denied any other injury or pain. Patient had a CT scan of the head and neck. Patient's CTs were both negative for acute findings. He CT showed no intracranial hemorrhage or abnormality. The CT did show old strokes. The neck CT showed no fractures. Patient is stable for discharge. Patient given discharge instructions. Patient does not require any further emergency medical services. Patient not require inpatient services. I discussed all results and clinical findings with patient. I discussed plan of care with patient. Patient agrees with plan of care. Patient is stable for discharge. Patient will be discharged home. Patient given discharge instructions. Patient voiced understanding of discharge instructions. - Differential Diagnosis Fall, head injury, scalp hematoma, ICH, neck fracture Critical care attestation.: If time is entered above; I have spent that time in minutes in the direct care of this critically ill patient, excluding procedure time. ED Disposition Clinical Impression: Fall Qualifiers: Encounter type: initial encounter Qualified Code(s): W19.XXXA - Unspecified fall, initial encounter Head injury Qualifiers: Encounter type: initial encounter Qualified Code(s): S09.90XA - Unspecified injury of head, initial encounter Scalp hematoma Qualifiers: Encounter type: initial encounter Qualified Code(s): S00.03XA - Contusion of scalp, initial encounter Disposition: 01 HOME / SELF CARE / HOMELESS Is pt being admited?: No Does the pt Need Aspirin: No Condition: Stable Instructions: Facial or Scalp Contusion Additional Instructions: Patient to follow-up with primary care in 2 to 3 days. Patient to follow-up with neurologist in 2 to 3 days. Patient to avoid ambulating's alone until cleared by primary care and neurologist. Patient to rest. Patient to increase water. Patient to avoid strenuous exercise or heavy lifting until cleared by primary care neurologist. Patient to take Tylenol or ibuprofen as needed for pain. Patient to return to the ER if condition worsens, changes or new symptoms arise. Referrals: MONSE POWELL MD [Staff Physician] - 2-3 Days Time of Disposition: 21:21
--- NOTE | 2021-08-19 20:38 | Cat Scan Report ---
CT head/brain wo con INDICATION: fall with head injury. TECHNIQUE: Routine CT head without contrast. All CT scans at this location are performed using CT dose reduction for ALARA by means of automated exposure control. COMPARISON: Brain MRI on 05/09/2021 FINDINGS: BRAIN / INTRACRANIAL CONTENTS: No acute hemorrhage, brain edema, mass effect, or hydrocephalus. Hortencia l meyer-white differentiation. Small chronic infarct in the right gangliocapsular region. Stable mild bilateral tree. CALVARIUM/SKULL BASE/CRANIOCERVICAL JUNCTION: No evidence of fracture. ORBITS: No significant abnormality of visualized orbits. SINUSES / MASTOIDS: Mild mucosal thickening in the left maxillary sinus. ADDITIONAL FINDINGS: None. IMPRESSION: 1. No acute post-traumatic intracranial abnormality. Signer Name: Felipe Aviles MD Signed: 08/19/2021 8:34 PM Workstation Name: [id number]
--- NOTE | 2021-08-19 20:39 | Cat Scan Report ---
CT CERVICAL SPINE WITHOUT CONTRAST INDICATION: fall with head injury. TECHNIQUE: Axial CT images of the spine were obtained. Sagittal and coronal reformatted images were produced. Al l CT scans at this location are performed using CT dose reduction for ALARA by means of automated exp osure control. COMPARISON: None available. FINDINGS: ACUTE FRACTURE(S) OR SUBLUXATION: None. SPINAL DEGENERATIVE CHANGES: There is mild DJD in the atlantodental articulation. There is mild degen erative disc disease at C5-6 and C6-7 with associated neural foraminal narrowing at those levels. PARASPINAL SOFT TISSUES: No soft tissue swelling or other acute abnormalities. ADDITIONAL FINDINGS: No significant additional findings. IMPRESSION: 1. No acute fracture or subluxation in the spine in neutral position. Signer Name: Felipe Aviles MD Signed: 08/19/2021 8:35 PM Workstation Name: [id number]
== END 2021-08-19 21:30 | disposition home or self-care (01) ==
LOC: ED 18:58
DX: S00.03XA Contusion of scalp, initial encounter (principal); I10 Essential (primary) hypertension; E11.9 Type 2 diabetes mellitus without complications; Z88.8 Allergy status to other drugs, medicaments and biological substances; Z79.899 Other long term (current) drug therapy; W18.39XA Other fall on same level, initial encounter; Y93.89 Activity, other specified; Y92.89 Other specified places as the place of occurrence of the external cause; Y99.8 Other external cause status
CPT/HCPCS: 70450; 72125; 99283